=== PATIENT | male | born 1975 | race Caucasian/White ===

== ENCOUNTER 2020-01-03 17:04 | Emergency (ER) | payer OTHER ==
[~2020-01-03] VITALS: Ht 185.4 cm; Wt 83.9 kg
[~2020-01-03 17:04] MED LIST: ALBU90I; ALBU90OI INH; ANTI DEPRESSANT; ASPI81CH PO; AZIT250 PO; BENZ100A PO; BUDE200IP INH; CHOLESTEROL MED?; CIPR500 PO; Cleocin HCl300 MG PO; DIVA250ER PO; FISH1000 PO; HYDACE5 PO; LISI5 PO; LORA2 PO; LOVA40; MECL25 PO; NAPR500EC PO; NYST100000 PO; Norco 10-325 T1 EACH PO; OXYACE5T PO; PANT40; PROM25 PO; Percocet 5-3251 EACH PO; RXLORA1 PO; SULTRIDS PO; TERB250 PO; TRAM50 PO; TRIA80TC TOP; VARE1 PO; WATER PILL?
[2020-01-03 19:35] LABS: Calcium, Ionized (POC) 1.06 mmol/L (1.10-1.46); Chloride (POC) 100 mmol/L (98-108); Creatinine (POC) 0.7 mg/dL (0.8-1.3); Glucose (ISTAT POC) 95 mg/dL (70-99); Potassium (POC) 3.6 mmol/L (3.5-5.5); Sodium (POC) 138 mmol/L (135-148); Total CO2 (POC) 24 mmol/L (21-32)
[2020-01-03] MEDS ORDERED: HYDCHL12.5 PO (20:14)
[2020-01-03] MEDS ORDERED: OLANZAPINE5 M1 PO (20:15)
[2020-01-03] MEDS ORDERED: TOPICORT60 G1 TP (20:15)
[2020-01-03] MEDS ORDERED: ATORVASTATIN CA20 MG PO (20:15)
[2020-01-03] MEDS ORDERED: Chantix1 MG PO (20:15)
[2020-01-03] MEDS ORDERED: LOSARTAN POTASS50 MG PO (20:15)
[2020-01-03] MEDS ORDERED: IBU800 M1 PO (20:16)
[2020-01-03] MEDS ORDERED: Ativan1 MG PO (20:30)
== END 2020-01-03 20:47 | disposition home or self-care (01) ==
LOC: ER 17:04
PROVIDERS: Emergency Medicine
DX: J39.2 Other diseases of pharynx (principal); F17.210 Nicotine dependence, cigarettes, uncomplicated; Z98.890 Other specified postprocedural states; Z88.8 Allergy status to other drugs, medicaments and biological substances; Z79.82 Long term (current) use of aspirin; Z79.899 Other long term (current) drug therapy
CPT/HCPCS: 36415; 70487; 80047; 85014; 99284-25; Q9967

== ENCOUNTER 2020-02-01 10:14 | Observation (INO) | payer OTHER ==
[~2020-02-01] VITALS: Ht 185.4 cm; Wt 83.4 kg
[~2020-02-01 10:14] MED LIST changes: +ATORVASTATIN CA20 MG PO; +Ativan1 MG PO; +Chantix1 MG PO; +HYDCHL12.5 PO; +IBU800 M1 PO; +LOSARTAN POTASS50 MG PO; +OLANZAPINE5 M1 PO; +TOPICORT60 G1 TP
--- NOTE | 2020-02-01 11:21 | NUR ---
Ambulatory in Day Surgery Surgical site prepped with 2% Chlorhexidine cloth wipe. History, Chart, Medications and Allergies reviewed before start of procedure.Lungs clear T/O to Auscultation. Patient confirms NPO status and agrees with scheduled surgery. PROVIDED EMOTIONAL SUPPORT. PT ANXIETY HAS DISSAPATED. AT [facility].
--- NOTE | 2020-02-01 12:16 | NUR ---
02/01/20 1216 TRINIDAD KURTZ History, Chart, Medications and Allergies reviewed before start of procedure. 3-LEAD EKG REVIEWED WITH PHYSICIAN PRIOR TO START OF PROCEDURE. O2 VIA N/C INTACT THROUGHOUT SEDATION/PROCEDURE. MONITOR INTACT WITH CONTINUOUS PULSE OXIMETRY AND INTERMITTENT BP. MAC WITH DR. LOPEZ.
[2020-02-01 13:49] LABS: BASOPHILS ABSOLUTE AUTO 0.02 K/mm3 (0.00-0.23); BASOPHILS PERCENT AUTO 0 % (0-2); EOSINOPHILS ABSOLUTE AUTO 0.05 K/mm3 (0.00-0.68); EOSINOPHILS PERCENT AUTO 1 % (0-6); Hematocrit 43.3 % (37.0-53.0); Hemoglobin 14.5 g/dL (13.5-17.5); IMMATURE GRAN ABSOLUTE AUTO 0.03 K/mm3 (0.00-0.10); IMMATURE GRAN PERCENT AUTO 0 % (0-1); LYMPHOCYTES ABSOLUTE AUTO 2.15 K/mm3 (0.84-5.20); LYMPHOCYTES PERCENT AUTO 31 % (21-46); MONOCYTES ABSOLUTE AUTO 0.37 K/mm3 (0.16-1.47); MONOCYTES PERCENT AUTO 5 % (4-13); Mean Corpuscular HGB 33.1 pg (26.0-34.0); Mean Corpuscular HGB Conc 33.5 g/dL (31.5-36.5); Mean Corpuscular Volume 99 fL (80-100); Mean Platelet Volume 8.7 fL (9.1-12.4); NEUTROPHILS ABSOLUTE AUTO 4.36 K/mm3 (1.96-9.15); NEUTROPHILS PERCENT AUTO 63 % (41-73); Platelet Count 126 K/mm3 (150-400); RDW Coefficient Variation 11.9 % (11.7-14.2); RDW Standard Deviation 43.7 fL (35.1-46.3); Red Blood Cell Count 4.38 M/mm3 (4.30-5.90); White Blood Cell Count 6.98 K/mm3 (4.00-11.30)
[2020-02-01 13:58] LABS: Alanine Aminotransfer (ALT/SGP 63 U/L (12-78); Albumin, Blood 3.7 g/dL (3.4-5.0); Albumin/Globulin Ratio 1.1 (0.8-1.8); Alk Phos 122 U/L (50-136); Anion Gap 9 mmol/L (6-16); Aspartate Aminotrans (AST/SGOT 56 U/L (12-37); Bilirubin, Total 0.5 mg/dL (0.1-1.0); Blood Urea Nitrogen 7 mg/dL (8-24); Bun/Creatinine Ratio 8.4 (12.0-20.0); CO2, Blood 26 mmol/L (21-32); Calcium, Blood 8.6 mg/dL (8.5-10.1); Chloride, Blood 107 mmol/L (98-108); Creatinine, Blood 0.84 mg/dL (0.60-1.20); Globulin, Blood 3.5 g/dL (2.2-4.0); Glomerular Filtration Rate >60 (60-); Glucose, Blood 191 mg/dL (70-99); Sodium, Blood 142 mmol/L (136-145); Total Protein, Blood 7.2 g/dL (6.4-8.2)
--- NOTE | 2020-02-01 14:08 | NUR ---
PT ARRIVED TO ICU 1 AT 1332 FROM DAY SURGERY. WAS REPORTED THAT MIGHT HAVE ASPIRATED DURING PROCEDURE AND WAS BROUGHT TO ICU FOR CLOSE OBS. PT C/O DULL PAIN IN UPPER MID ABD. HAS NEWLY PLACED PEG TUBE THAT IS WELL SECURED WITH C/D/I DRESSING AROUND TUBE. PT WAS ANXIOUS AND ROCKING IN BED FROM DISCOMFORT. GAVE FENTANYL PER DR. TRUONG ORDERS AND PT ALMOST IMMEDIATELY FELT BETTER. DR. TRUONG REMOVED O2 FROM PT AND SPO2 GREATER THAN 90% ON RA. AT BEDSIDE. NO SIGN OF DISTRESS.
[2020-02-01] MEDS ORDERED: OLAN5 PO (14:46)
[2020-02-01] MEDS ORDERED: ATOR20 PO (14:48)
[2020-02-01] MEDS ORDERED: DESO.25TO TOP (14:49)
[2020-02-01] MEDS ORDERED: Chantix1 MG PO (14:50)
[2020-02-01] MEDS ORDERED: ALBU90OI INH (14:51)
[2020-02-01] MEDS ORDERED: HYDROCODONE-AC1 EAC9 PO (14:52)
[2020-02-01] MEDS ORDERED: TRAM50 PO (14:53)
--- NOTE | 2020-02-01 18:00 | NUR ---
PT IS BEING TRANSFERED TO MEDICAL FLOOR RM 312. PT HAS BEEN STABLE WHILE IN THE ICU. ON RA WITH SPO2 IN THE 90'S. GOT 2 DOSES OF PAIN MEDICATION WITH GOOD RESULTS. STARTED MAGIC MOUTHWASH FOR IRRITATION TO MOUTH AND THROAT. DR. TRUONG HAS SIGNED OFF ON THE PATIENT. DR. DELGADILLO WILL BE TAKING OVER FOR ORDERS ON THIS PT. NO SIGN OF DISTRESS.
--- NOTE | 2020-02-01 18:49 | NUR ---
PT ARRIVED TO ROOM 312 FROM ICU AFTER REPORT GIVEN. CAME UP IN BED AND REPORTED HIS ABDOMEN WAS CAUSING HIM A GREAT DEAL OF PAIN. PT REPORTED NOT BEING OUT OF BED SINCE PROCEDURE BECAUSE HIS ABDOMEN IS SO PAINFUL. EXPLAINED TO HIM DESPITE PAIN HOW IMPORTANT IS IS TO MOVE AND AMBULATE. FWW PROVIDED AND ASSISTED HIM FROM BED IN HALLWAY TO BED IN ROOM. SETTLED HIM. HAD CALLED DR. SMITH ANSWERING SERVICE PRIOR TO ARRIVING TO ROOM FOR ORDERS. PT REPORTING BEING VERY HUNGRY. WAS WARM TO TOUCH AND TEMP WAS 100.3. DR. DELGADILLO NOTIFIED OF ARRIVAL CONDITION. SEE NEW ORDERS. HAS A STUFFY NOSE. ICE PROVIDED FOR COMFORT TO PEG SITE.
--- NOTE | 2020-02-01 22:38 | NUR ---
CALL TO HOSPITALIST: PT DEMONSTRATING ETOH WITHDRAWAL SYMPTOMS. CIWA SCORE OF 6. PT REPORTS DRINKING A 6 PACK AND SEVERAL SHOTS EVERY DAY. SPOKE W/DR. TREVINO- INITIATE CIWA PROTOCOL.
--- NOTE | 2020-02-02 02:27 | NUR ---
CALL TO HOSPITALIST DR. GAMBOA. PT REQUESTING HOME DOSE OF ZYPREXA TO HELP HIM SLEEP. ORDER RECEIVED FOR ZYPREXA 5MG PO QHS.
[2020-02-02 04:37] LABS: BASOPHILS ABSOLUTE AUTO 0.01 K/mm3 (0.00-0.23); BASOPHILS PERCENT AUTO 0 % (0-2); EOSINOPHILS ABSOLUTE AUTO 0.02 K/mm3 (0.00-0.68); EOSINOPHILS PERCENT AUTO 0 % (0-6); Hematocrit 40.4 % (37.0-53.0); Hemoglobin 13.8 g/dL (13.5-17.5); IMMATURE GRAN ABSOLUTE AUTO 0.02 K/mm3 (0.00-0.10); IMMATURE GRAN PERCENT AUTO 0 % (0-1); LYMPHOCYTES PERCENT AUTO 22 % (21-46); MONOCYTES ABSOLUTE AUTO 0.65 K/mm3 (0.16-1.47); MONOCYTES PERCENT AUTO 8 % (4-13); Mean Corpuscular HGB 32.8 pg (26.0-34.0); Mean Corpuscular HGB Conc 34.2 g/dL (31.5-36.5); Mean Corpuscular Volume 96 fL (80-100); Mean Platelet Volume 8.8 fL (9.1-12.4); NEUTROPHILS ABSOLUTE AUTO 5.83 K/mm3 (1.96-9.15); NEUTROPHILS PERCENT AUTO 70 % (41-73); Platelet Count 112 K/mm3 (150-400); RDW Coefficient Variation 11.8 % (11.7-14.2); RDW Standard Deviation 41.5 fL (35.1-46.3); Red Blood Cell Count 4.21 M/mm3 (4.30-5.90); White Blood Cell Count 8.33 K/mm3 (4.00-11.30)
[2020-02-02 04:54] LABS: Anion Gap 6 mmol/L (6-16); Blood Urea Nitrogen 7 mg/dL (8-24); Bun/Creatinine Ratio 9.4 (12.0-20.0); CO2, Blood 26 mmol/L (21-32); Calcium, Blood 8.4 mg/dL (8.5-10.1); Chloride, Blood 106 mmol/L (98-108); Creatinine, Blood 0.74 mg/dL (0.60-1.20); Glomerular Filtration Rate >60 (60-); Glucose, Blood 116 mg/dL (70-99); Potassium, Blood 3.7 mmol/L (3.5-5.5); Sodium, Blood 138 mmol/L (136-145)
--- NOTE | 2020-02-02 06:26 | NUR ---
SHIFT SUMMARY: VSS. PER DR. TOLLIVER, NO TEMPS CHECKED. 02 SATS 95% ON RA. RESPS NON-LABORED. NASAL CONGESTION AUDIBLE. LS W/COARSE RHONCHI INITIALLY, CLEARED W/COUGHING. ENCOURAGED PT TO SPLINT ABD DUE TO SORENESS AT GT SITE. GT ON LUQ W/DRESSING CDI. PT REPORTS SITE LESS SORE THIS AM. ZOFRAN GIVEN FOR NAUSEA X1 W/GOOD EFFECT. CIWA SCORE 6, 1, 3, 1. PT SLEPT VERY POORLY. AFFECT FLAT, CALM, COOPERATIVE. ABT INFUSED PER ORDERS. PT OFF OF MEDICAL FLOOR AT THIS TIME FOR CHEST X-RAY. NO ACUTE CONCERNS AT THIS TIME.
--- NOTE | 2020-02-02 11:08 | NUR ---
DISCHARGE NOTES- PT RECIEVED VERBAL AND WRITTEN DISCHARGE INSTRUCTIONS AND ACKNOWLEDGEDUNDERSTANDING OF THEM. PT STSTED HE RECIEVED A PHONE CALL FROM [facility] TELLING HIM HE NEEDS TO FLUSH HIS NEW TUBE 2 TIMES A DAY UNTIL HIS APPOINTMENT. CALLED DR TOLLIVER AND LEFT A MESSAGE REQUESTING OK TO USE GI TUBE SO ASSISTANT FOREMAN CAN PROVIDE EDUCATION ABOUT HOW TO DO THAT. WAS AWAITING A CALL BACK WHEN THE PT CALLED AND STATED HE HAD SPOKEN TO RAHEL AGAIN AND THAT SHE WANTS HIM TO COME STRAIGHT TO THE CLINIC NOW SO SHE CAN EDUCATE. PT DECLINED TO WAIT ANY LONGER FOR DR NAVAS, PT DECLINED WC AND WAS ESCORTED OUT BY THE BEEF SELECTOR. NO FURTHER QUESTIONS AT THE TIME OF DISCHARGE.
== END 2020-02-02 11:02 | disposition home or self-care (01) ==
LOC: ORSCMMR 10:14 → ORD 11:45 → ORSCMMR 13:21 → ICUW 13:21 → ICUE 13:21 → MEDS 18:18
PROVIDERS: ADMIT Surgery
PROC: 0DH63UZ Insertion of Feeding Device into Stomach, Percutaneous Approach (ICD-10-PCS; principal; 2020-02-01 11:45)
DX: C10.9 Malignant neoplasm of oropharynx, unspecified (principal); Z88.8 Allergy status to other drugs, medicaments and biological substances; Z79.82 Long term (current) use of aspirin; Z79.899 Other long term (current) drug therapy; F17.210 Nicotine dependence, cigarettes, uncomplicated; J45.909 Unspecified asthma, uncomplicated; I10 Essential (primary) hypertension; E78.5 Hyperlipidemia, unspecified; Z20.828 Contact with and (suspected) exposure to other viral communicable diseases; R09.02 Hypoxemia
CPT/HCPCS: 36415; 71045; 71046; 80048; 80053; 85025; 96365; 96366; 96376; C1769; G0378; J0330; J0690; J1650; J2250; J2270; J2405; J2543; J2704; J3010; J7120

== ENCOUNTER 2020-02-17 14:50 | Inpatient (IN) | payer OTHER ==
[~2020-02-17] VITALS: Ht 185.4 cm; Wt 80.0 kg
[~2020-02-17 14:50] MED LIST changes: +ATOR20 PO; +DESO.25TO TOP; +HYDROCODONE-AC1 EAC9 PO; +OLAN5 PO
[2020-02-17 15:40] LABS: BASOPHILS ABSOLUTE AUTO 0.03 K/mm3 (0.00-0.23); BASOPHILS PERCENT AUTO 1 % (0-2); Hematocrit 40.7 % (37.0-53.0); Hemoglobin 13.7 g/dL (13.5-17.5); LYMPHOCYTES ABSOLUTE AUTO 0.84 K/mm3 (0.84-5.20); LYMPHOCYTES PERCENT AUTO 13 % (21-46); MONOCYTES PERCENT AUTO 5 % (4-13); Mean Corpuscular HGB 32.8 pg (26.0-34.0); Mean Corpuscular HGB Conc 33.7 g/dL (31.5-36.5); Mean Corpuscular Volume 97 fL (80-100); Mean Platelet Volume 8.9 fL (9.1-12.4); Platelet Count 171 K/mm3 (150-400); RDW Coefficient Variation 11.9 % (11.7-14.2); RDW Standard Deviation 42.6 fL (35.1-46.3); Red Blood Cell Count 4.18 M/mm3 (4.30-5.90); White Blood Cell Count 6.31 K/mm3 (4.00-11.30)
[2020-02-17 15:41] LABS: EOSINOPHILS ABSOLUTE AUTO 0.01 K/mm3 (0.00-0.68); EOSINOPHILS PERCENT AUTO 0 % (0-6); IMMATURE GRAN ABSOLUTE AUTO 0.03 K/mm3 (0.00-0.10); IMMATURE GRAN PERCENT AUTO 1 % (0-1); NEUTROPHILS PERCENT AUTO 81 % (41-73)
[2020-02-17 16:06] LABS: Albumin, Blood 2.6 g/dL (3.4-5.0); Albumin/Globulin Ratio 0.6 (0.8-1.8); Bilirubin, Total 0.7 mg/dL (0.1-1.0); Bun/Creatinine Ratio 11.5 (12.0-20.0); Calcium, Blood 8.8 mg/dL (8.5-10.1); Creatinine, Blood 4.53 mg/dL (0.60-1.20); Globulin, Blood 4.5 g/dL (2.2-4.0); Potassium, Blood 3.6 mmol/L (3.5-5.5); Total Protein, Blood 7.1 g/dL (6.4-8.2)
[2020-02-17 17:11] LABS: Source, Urine Clean Catch
[2020-02-17 17:14] LABS: Appearance, Urine Hazy (Clear); Blood, Urine 4+ (Neg); Color, Urine Yellow (P-Yellow); Glucose Qualitative, Urine 3+ (Neg); Ketones, Urine Neg (Neg); Leukocyte Esterase, Urine 1+ (Neg); Nitrite, Urine Neg (Neg); Protein, Urine 3+ (Neg); Specific Gravity, Urine 1.025 (1.003-1.022); Urobilinogen, Urine NORM (Normal)
[2020-02-17 17:26] LABS: Bilirubin, Urine 1+ (Neg)
[2020-02-17 17:28] LABS: Waxy Cast 0-2 /lpf (0)
[2020-02-17 17:29] LABS: Amorphous Mod (0-Heavy); Bacteria Few /hpf; Mucus Light (0-Heavy); Squamous Epithelial Cells Many /hpf (Few)
[2020-02-17] MEDS ORDERED: HYDPAM100 PO (18:18)
[2020-02-17] MEDS ORDERED: HYDCHL12.5 PO (18:19)
[2020-02-17] MEDS ORDERED: Chantix1 MG PO (18:19)
--- NOTE | 2020-02-17 22:00 | NUR ---
INITAL SHIFT ASSESSMENT PT ARRIVED TO ICU VIA ICU BED. HE IS INTUABTED BEING BAGGED BY ANESTHEOLOGIST DR RODRIGUEZ. VITALS ARE STABLE. RT IN ROOM TO CHIEF OPERATIONS OFFICER TO VENT. SEE RT NOTES REGARDING VENT SETTINGS AND CHANGES T/O SHIFT. PROPOFOL GTT WAS STARTED AT 20MCG FOR SEDATION. WILL TITRATE NEEDED T/O SHIFT. TWO PERIPHERAL IV'S ONE TO RIGHT AC AND ONE TO LEFT FA. BOTH PATENT. NS WILL BE STARTED ORDERED WELL. PT WILL NOT HAVE AN OG TUBE PLACED PER DR NETTLES'S ORDERS. PICCO DRESSING TO MIDLINE ABD SURGICAL SITE. THERE IS A QUARTER SIZE BLOOD SPOT TOWARDS TOP OF INCISION. PT HAS A J DRAIN TO LEFT ABD THAT IS CLAMMPED. DR NETTLES ORDERED TO HAVE IT IRRIGATED EVERY 6HRS. FLAVIA DRAIN TO NATALIIA TO RIGHT ABD. RED/PINK RETURN. BOTH DRAINS HAVE 4*4 DRESSINGS CDI. ABD IS VERY ROUND AND FIRM, DR NETTLES REPORTS IS MUCH SOFTER AND APPEARS TO BE LESS DISTENTED. SEAY CATH IN PLACE DRAINING MINIMAL YELLOW URINE. PAS STOCKING IN PLACE. SOFT BILATERAL WRIST RESTRAINTS IN PLACE. PT IS AT THIS TIME NOT FOLLOWING COMMANDS OR PULLING AGAINST RESTRAINTS. PT'S IN TO VISIT WITH PT PRIOR TO GOING HOME. WILL CON'T TO MONITOR AND KEEP PT SAFE T/O REMAINDER OF SHIFT.
--- NOTE | 2020-02-18 05:14 | NUR ---
SHIFT SUMMARY PT CON'T TO BE STABLE WITH NO CHANGES FROM BASELINE. THE SHIFT PROGRESSES HE BECOMES MORE AWAKE ON VENT. AT ONE POINT HE WAS SHAKING HEAD YES AND NO TO QUESTIONS. PROPOFOL GTT HAS BEEN INCREASED WELL FENTANYL IV BEING GIVEN FOR SEDATION AND PAIN CONTROL. VITALS HAVE BEEN STBALE T/O SHIFT. HE HAS HAD NO VENT SETTING CHANGES. NO CHANGES TO DRESSINGS OR DRAINS. J DRAIN TO LEFT ABD WAS IRRIGATED ORDERED FROM DR NETTLES. ABD CON'T TO BE ROUND BUT SOFT. FLAVIA DRAIN TO RIGHT ABD CON'T TO HAVE MINIMAL OUTPUT. SEAY CATH HAD MINIMAL URINE OUTPUT, BUT URINE IS YELLOW. SOFT BILATERAL WRIST RESTRAINTS CON'T TO BE IN PLACE WITH NO SKIN OR CIRCULATION CONCERNS. WILL CON'T TO KEEP PT CALM AND COMFORTABLE UNTIL BEDSIDE REPORT TO ONCOMING RN.
--- NOTE | 2020-02-18 07:55 | NUR ---
Assumed care of pt at 0700. Bedside report received from Re RAO. Pt sedated with propofol at 50 mcg/kg/min. Ventilator settings AC 14/400/5/30%. SpO2 90% or greater. Dr Hurst in to see patient. Changed ventilator to spontaneous 11/24, 30% FiO2. Propofol stopped. Pt awake, following commands within 5 minutes. Extubated at 0745 and placed on 2 LPM NC. Restraints removed. SpO2 90% or greater. Pt oriented to situation. Pt inquires where is family is. Pt provided with his cell phone.
--- NOTE | 2020-02-18 09:11 | NUR ---
Dr De Souza in to see patient. Orders CBC and BMP. Discussed urine output. Okay with pt potentially moving out of ICU this afternoon.
[2020-02-18 09:31] LABS: Hematocrit 32.6 % (37.0-53.0); Mean Corpuscular HGB Conc 33.7 g/dL (31.5-36.5); Mean Corpuscular Volume 98 fL (80-100); Mean Platelet Volume 8.9 fL (9.1-12.4); Platelet Count 127 K/mm3 (150-400); RDW Coefficient Variation 12.2 % (11.7-14.2); RDW Standard Deviation 44.3 fL (35.1-46.3); Red Blood Cell Count 3.33 M/mm3 (4.30-5.90); White Blood Cell Count 4.78 K/mm3 (4.00-11.30)
[2020-02-18 09:49] LABS: Creatinine, Blood 5.64 mg/dL (0.60-1.20); Potassium, Blood 3.9 mmol/L (3.5-5.5)
[2020-02-18 09:56] LABS: BASOPHILS PERCENT MAN 0 % (0-2); EOSINOPHILS ABSOLUTE MAN 0.04 K/mm3 (0.00-0.68); EOSINOPHILS PERCENT MAN 1 % (0-6); LYMPHOCYTES ABSOLUTE MAN 0.57 K/mm3 (0.84-5.20); LYMPHOCYTES PERCENT MAN 12 % (21-46); MONOCYTES ABSOLUTE MAN 0.43 K/mm3 (0.16-1.47); MONOCYTES PERCENT MAN 9 % (4-13); NEUTROPHILS ABSOLUTE MAN 3.72 K/mm3 (1.96-9.15); SEG NEUTROPHILS PERCENT MAN 78 % (41-73); TOTAL CELLS COUNTED 100
--- NOTE | 2020-02-18 12:10 | NUR ---
Patient surgical floor status without telemetry per Dr Hurst. Hospitalist consulted per Dr De Souza for management of ANABELA. Call placed to Mario REGAN. Discussed pain management with Dr De Souza as pt is requiring frequent administrations of IV fentanyl. Pain med changed to dilaudid.
[2020-02-18 13:34] LABS: Magnesium, Blood 1.9 mg/dL (1.6-2.4); Phosphorus, Blood 5.2 mg/dL (2.5-4.9)
[2020-02-18 13:37] LABS: Base Excess Venous -8.6 mmol/L; Bicarbonate Venous 18.2 mmol/L (24.0-30.0); PCO2 Venous 33.2 mmHg (38-42); PO2 Venous 111 mmHg (38-42); pH Blood Venous 7.33 (7.34-7.37)
--- NOTE | 2020-02-18 14:00 | NUR ---
Mario SPRING FORMER in to see patient. Discussed I&O. Provider agreeable with pt transferring to surgical floor.
--- NOTE | 2020-02-18 15:00 | NUR ---
Pt transferred to room 227. Report given to JALEN Nelson to assume care. Transferred via bed using slider sheet and many staff members. Chart, belongings, and medications transferred with patient. Pt to update spouse on new room assignment.
--- NOTE | 2020-02-18 16:00 | NUR ---
TRANSFER: REPORT RECEIVED FROM STORE PLANNER MINDY. PT TO UNIT AT ABOUT 1510. IV MEDS STARTED BY STORE PLANNER. UPON ASSESSMENT PT APPEARS PAINFUL WITH TRANSFER AND BREATHING IS FAST. LUNGS AT CLEAR AND DIM, CRACKLES AT BILAT BASES. AT 1517 VITALS TAKEN AND BP, HR AND RR HIGH. CERTIFIED PEST CONTROL TECHNICIAN MARIA NOTIFIED OF VS. AND DR. HOWARD NOTIFIED OF THE ABOVE AND FINDING IN ASCULATING LUNGS. TELE REORDERED AND LABATOLOL GIVEN IV ALONG WITH ATIVAN, SEE EMAR. RT CALLED, AWAITING BREATHING TREATMENT AT THIS TIME. WILL CTM PT STATUS
[2020-02-18 19:41] LABS: Source, Urine Catheter
[2020-02-18 19:44] LABS: Appearance, Urine Clear (Clear); Bilirubin, Urine Neg (Neg); Blood, Urine 4+ (Neg); Color, Urine Yellow (P-Yellow); Glucose Qualitative, Urine 2+ (Neg); Ketones, Urine 1+ (Neg); Leukocyte Esterase, Urine Neg (Neg); Nitrite, Urine Neg (Neg); Protein, Urine 3+ (Neg); Urobilinogen, Urine NORM (Normal)
[2020-02-18 19:50] LABS: Amorphous Light (0-Heavy); Bacteria Mod /hpf; Squamous Epithelial Cells Not Seen /hpf (Few)
--- NOTE | 2020-02-18 19:50 | NUR ---
AT ABOUT 1730 PT REASSESSED AND VS TAKEN. FINDINGS WERE NOT WITHIN NORMAL LIMITS, SEE CHARTING. PT WAS MORE DROWSY AND PRESENTING WITH INCREASED WOB. PT ALSO STATED THAT HE WAS "SEEING SHADOWS" AND FELT IF HE WAS WITHDRAWING. DR. SHAW NOTIFIED OF THIS AT ABOUT 1745. DR. SHAW SAW PT AT ABOUT 1800 AT WHICH TIME PT REPORTED TO HAVE SOME CHEST PAIN. SEE NEW ORDERS. CONTINUED TO MONITOR PT AND ASSESSED A CIWA SCORE OF 10, MEDICATIONS GIVEN. PT CONTINUED TO HAVE VS OUT OF NORMAL LIMITS AND BECAME MORE DISOREINTED. WINTER INTERN RICK MADE AWARE AND ENTERED ROOM. JALEN CABRERA THEN REASSESSED CIWA AND IT TOTALED 21. DR. SHAW MADE AWARE AND ORDERED FOR PT TO TRANSFER TO ICU.
--- NOTE | 2020-02-18 20:13 | NUR ---
TRANSFER: REPORT GIVEN TO METAL WIRE TECHNICIANJALEN GOMES AT ABOUT 1850. PT TRANSFERED FROM SURGICAL TO ICU AT ABOUT 191
[2020-02-18 21:02] LABS: Albumin, Blood 1.7 g/dL (3.4-5.0); Anion Gap 9 mmol/L (6-16); Blood Urea Nitrogen 67 mg/dL (8-24); Bun/Creatinine Ratio 10.7 (12.0-20.0); CO2, Blood 20 mmol/L (21-32); Chloride, Blood 109 mmol/L (98-108); Creatinine, Blood 6.29 mg/dL (0.60-1.20); Glomerular Filtration Rate 10 (60-); Glucose, Blood 165 mg/dL (70-99); Phosphorus, Blood 6.2 mg/dL (2.5-4.9); Potassium, Blood 3.9 mmol/L (3.5-5.5); Sodium, Blood 138 mmol/L (136-145)
--- NOTE | 2020-02-18 23:37 | NUR ---
SHIFT UPDATE PT HAS BEEN RESTING WELL SINCE ATIVAN, DILAUDID AND PRECEDEX WERE ALL ADMINISTERED FOR COMFORT. PT WILL WAKE WITH VERBAL STIMULI, BUT THEN IS ABLE TO REST BACK DOWN. HE IS STILL ON 6L N/C WITH SATS IN THE 96% RANGE. PT IS A MOUTH BREATHER HOWEVER. PRECEDEX GTT AT 0.2MCG CURRENTLY. HE IS NOT IN RESTRAINTS. BP IS ELEVATED AND PRN LABETALOL IV HAS BEEN GIVEN WITH MINIMAL RESULTS WILL CON'T TO MONITOR AND CALL MD IF INDICATED. DR WAITE WAS CALLED EARLIER IN SHIFT WITH MOST RECENT LAB RESULTS. SHE STATES SHE WILL LIKELY HAVE DIALYSIS DONE ON PT TOMORROW AFTER A LINE IS PLACED. WILL CON'T TO MONITOR AND KEEP PT SAFE T/O SHIFT.
--- NOTE | 2020-02-19 01:34 | NUR ---
DR GORDO CARO WAS CALLED REGARDING PT'S INCREASED EXP WHEEZING AND OXYGEN SATS 92% ON 6L N/C. HE ORDERED TO GIVE LASIX IV. THIS WAS ADMINISTERED WILL MONITOR FOR EFFECTIVENESS. DR CARO WAS MADE AWARE OF PT'S BP WELL POSSIBLE NEED FOR DIALYSIS TOMORROW PER DR WAITE.
[2020-02-19 03:30] LABS: BASOPHILS ABSOLUTE AUTO 0.02 K/mm3 (0.00-0.23); BASOPHILS PERCENT AUTO 0 % (0-2); EOSINOPHILS ABSOLUTE AUTO 0.04 K/mm3 (0.00-0.68); EOSINOPHILS PERCENT AUTO 1 % (0-6); Hematocrit 34.8 % (37.0-53.0); Hemoglobin 11.3 g/dL (13.5-17.5); IMMATURE GRAN ABSOLUTE AUTO 0.07 K/mm3 (0.00-0.10); IMMATURE GRAN PERCENT AUTO 1 % (0-1); LYMPHOCYTES ABSOLUTE AUTO 0.41 K/mm3 (0.84-5.20); LYMPHOCYTES PERCENT AUTO 8 % (21-46); MONOCYTES ABSOLUTE AUTO 0.34 K/mm3 (0.16-1.47); MONOCYTES PERCENT AUTO 7 % (4-13); Mean Corpuscular HGB 32.6 pg (26.0-34.0); Mean Corpuscular HGB Conc 32.5 g/dL (31.5-36.5); Mean Corpuscular Volume 100 fL (80-100); Mean Platelet Volume 8.4 fL (9.1-12.4); NEUTROPHILS ABSOLUTE AUTO 4.28 K/mm3 (1.96-9.15); NEUTROPHILS PERCENT AUTO 83 % (41-73); Platelet Count 113 K/mm3 (150-400); RDW Coefficient Variation 12.4 % (11.7-14.2); RDW Standard Deviation 46.2 fL (35.1-46.3); Red Blood Cell Count 3.47 M/mm3 (4.30-5.90); White Blood Cell Count 5.16 K/mm3 (4.00-11.30)
[2020-02-19 03:55] LABS: Magnesium, Blood 2.4 mg/dL (1.6-2.4); Thyroid Stimulating Hormone 0.357 uIU/mL (0.360-4.800)
[2020-02-19 03:56] LABS: Albumin, Blood 1.7 g/dL (3.4-5.0); Albumin/Globulin Ratio 0.4 (0.8-1.8); Bilirubin, Total 0.3 mg/dL (0.1-1.0); Bun/Creatinine Ratio 10.4 (12.0-20.0); Creatinine, Blood 6.73 mg/dL (0.60-1.20); Phosphorus, Blood 7.4 mg/dL (2.5-4.9); Potassium, Blood 4.3 mmol/L (3.5-5.5); Total Protein, Blood 5.7 g/dL (6.4-8.2)
--- NOTE | 2020-02-19 05:04 | NUR ---
SHIFT SUMMARY PT CON'T TO BE STABLE THIS AM. HE HAS BEEN VERY CALM AND COOPERATIVE SINCE THIS RN ADMINISTERED PAIN MEDICATION IV. THIS AM HE WAS SAYING PLEASE AND THANK YOU. PT'S WHEEZING IS MUCH IMPROVED AFTER THE ADMINISTRATION OF LASIX. HE DID HAVE A FAIR AMOUNT OF URINE FROM SEAY AFTER LASIX. BP DOES CON'T TO BE ELEVATED. NO CHANGES WITH DRAINS OR ABD DRESSING CDI. IRRIGATED J TUBE ORDERED. WILL CON'T TO MONITOR AND KEEP PT SAFE T/O REMAINDER OF SHIFT.
--- NOTE | 2020-02-19 08:17 | NUR ---
ASSESSMENT- PT AWAKE, ABLE TO ANSWER QUESTIONS, ALERT, ORIENTED. SPEECH MUMBLED. STATES SOME SOB, ESPECIALLY WITH MOVEMENT IN BED. OXYGEN SATURATIONS 95% ON 8L/MIN NC, DECREASED TO 5 L/MIN, SATURATIONS, 91%. LUNGS WITH AUDIBLE WHEEZES. SINUS TACH, BP ELEVATED. PO CLONINIDINE GIVEN. DR. GARCIA HERE-UPDATED. DR. WAITE HERE-UPDATED. ABDOMEN DISTENDED, TENDER. DENIES NEED FOR PAIN RX AT THIS TIME. FEW BOWEL SOUNDS HEARD, NO N/V. ML DSG INTACT WITH BLANCA. UO 150 CC VIA SEAY. ARMS SWOLLEN. REPOSITIONED, ASSISTED WITH MOVEMENT.
--- NOTE | 2020-02-19 09:02 | NUR ---
C/O ANXIETY, REQUESTING RX. CIWA INCREASED TO 8. ATIVAN GIVEN WITH IMPROVEMENT. LABETOLOL FOR ELEVATED BP
--- NOTE | 2020-02-19 09:36 | NUR ---
UPDATE TO ELDERPT'S SIGNIFICANT OTHER. NOTIFIED DR. WAITE TO UPDATE HER. DR. JACKSON HERE-UPDATED. PLANS FOR DIALYSIS CATH. PT SEDATED AFTER ATIVAN, AWAKENS TO NAME. DR. NETTLES HERE-FLUSHED JTUBE WITHOUT DIFFICULTY. STAT LABS ORDERED. HEARTRATE IMPROVED AFTER BETA LEXI, BP BETTER. IV LASIX GIVEN. NO AUDIBLE WHEEZES NOW.
[2020-02-19 09:55] LABS: Base Excess Venous -10.2 mmol/L; PCO2 Venous 34.9 mmHg (38-42); PO2 Venous 80.7 mmHg (38-42)
[2020-02-19 09:56] LABS: pH Blood Venous 7.28 (7.34-7.37)
[2020-02-19 10:22] LABS: International Normalized Ratio 0.86; Prothrombin Time Results 9.3 Sec (9.7-11.5)
--- NOTE | 2020-02-19 10:43 | NUR ---
BEDSIDE ULTRASOUND DONE. LABS DRAWN FROM PICC LINE. DR. ARREOLA HERE
--- NOTE | 2020-02-19 10:51 | NUR ---
UPDATE TO [facility], TALKED WITH DR. ARREOLA ON PHONE. AGREEABLE WITH DIALYSIS. SET UP FOR LINE PLACEMENT. PT SEDATED, CALM, AWAKENS TO NAME. UO 125 CC AFTER LASIX. DENIES SOB NOW, RESPIRATIONS EASIER WITH BIPAP. CONSENT FOR LINE PLACEMENT FROM [facility].
--- NOTE | 2020-02-19 12:07 | NUR ---
LINE PLACED BY DR. ARREOLA. AWAITING XRAY RESULTS. SINUS TACH. MORE UNCOMFORTABLE. PRECEDEX STARTED PER DR. ARREOLA. HYDRALAZINE FOR ELEVATED BP. REPOSITIONED, LINEN CHANGE
--- NOTE | 2020-02-19 13:00 | NUR ---
PT IN DISTRESS. ATTEMPT BIPAP, UNABLE TO TOLERATE. SINUS TACH. EXPIRATORY WHEEZES. PLANS FOR INTUBATION. DR. ARREOLA AT BEDSIDE WITH GLIDESCOPE. RX WITH ETOMIDATE 20 MG AND ROCURONIUM 20 MG THEN REPEATED ETOMIDATE [address] ARREOLA. INTUBATED BUT DECREASED SATURATIONS, HEARTRATE DECREASED TO 90, TUBE PULLED, BAGGED, SUCTIONED FOR THICK WHITE SECRETIONS, THEN BILE SECRETIONS. REINTUBATED BY DR. PARTIDA WITH 8 ETT, 24 BARBARA WITH POSITIVE CO2 COLOR CHANGED, BILATERAL BREATH SOUNDS, IMPROVED SATURATIONS, HEARTRATE UP TO 120'S. NOTIFIED DR. BOWER TO PLACE OGT-DONE GENTLY WITH RETURN OF SCANT AMOUNT BILE SECRETIONS-TO LIS. XRAY DONE. PRECEDEX OFF, PROPOFOL GTT STARTED.
--- NOTE | 2020-02-19 13:32 | NUR ---
UPDATE TO PT'S SIGNIFICANT OTHER. [facility] DIALYSIS CATH-UNABLE TO ASPIRATE BLOOD. DR. ARREOLA TO EXCHANGE LINE. BP IMPROVED AFTER FENTANYL DOSE. PROPOFOL TITRATED UP TO 50 MCG/KG/MIN
--- NOTE | 2020-02-19 15:11 | NUR ---
UNABLE TO USE RIJ CENTRAL LINE FOR DIALYSIS. SECOND LINE PLACED BY DR. ARREOLA RIGHT FEMORAL SITE, DIALYSIS STARTED PER TONIO RAO. RIJ CATHETER D/C, PRESSURE HELD UNTIL HEMOSTASIS OBTAINED.DRSG ON. PT SEDATED. ABLE TO DECREASE FIO2 TO 80%. BP IMPROVED. BILATERAL WRIST RESTRAINTS ON-EXTUBATION RISK
--- NOTE | 2020-02-19 16:45 | NUR ---
PT AGITATED, LEGS SHAKING. PROPOFOL CONTINUES AT 60 MCG/KG/MIN, RX WTIH ATIVAN. DR. ARREOLA HERE-UPDATED. DIALYSIS CONTINUES. DR. WAITE HERE-UPDATED. LABETOLOL GIVEN. RIJ DDI. RIGHT FEMORAL SITE DI
[2020-02-19 16:46] LABS: Base Excess Venous 1.3 mmol/L; Bicarbonate Venous 24.4 mmol/L (24.0-30.0); PCO2 Venous 53.3 mmHg (38-42); PO2 Venous 38.9 mmHg (38-42); pH Blood Venous 7.32 (7.34-7.37)
--- NOTE | 2020-02-19 18:06 | NUR ---
PT SEDATED WITH PROPOFOL AT 60 MCG/KG/MIN. TOLERATING [id number] BPM. SINUS 110'S. BP STABLE. RIGHT FEMORAL LINE DI. PIV X 4 INTACT. NS TKO, CLINIMIX AT 100 CC/HR, LIPIDS AT 25 CC/HR. ARMS SWOLLEN. BLOODY DRAINAGE ORAL CARE. OGT WITH 50 CC GREEN DRAINAGE. ML DRSG DI. UO ADEQUATE VIA SEAY
--- NOTE | 2020-02-19 19:30 | NUR ---
ASSUMED CARE RECEIVED REPORT. PT INTUBATED TO VENT AC 14, TV 450, PEEP 8, FIO2 70%. PT SEDATED ON PROPOFOL AT 60 MCG. BANDAGE OVER PREVIOUS R IJ SITE DRY AND INTACT. LUNG SOUNDS COARSE WITH CRACKLES TO LEFT THROUGHOUT. RIGHT WITH CRACKLES TO MIDDLE AND LOWER. FAINT INSPIRATORY WHEEZES AUSCULTATED TO RIGHT SIDE. HEQART SOUNDS NORMAL. MIDLINE SURGICAL DRESSING WITH BLANCA DRAIN INTACT WITH A SMALL AMOUNT OF RED DRAINAIGE TO BANDAGE. RIGHT LOWER ABD NATALIIA DRAIN INTACT WITH SMALL AMOUNT OF SEROSANGUINOUS FLUID. LEFT LOWER ABD J TUBE INTACT AND FLUSHES EASILY. SEAY CATH INTACT DRAINING CLEAR YELLOW URINE. MINIMAL 1+ EDEMA NOTED TO LOWER EXTREMITIES. PT SEDATED AND APPEARS COMFORTABLE AT THIS TIME.
--- NOTE | 2020-02-19 22:04 | NUR ---
FLUSHED J TUBE WITH 30ML NS. FLUSHES EASILY.
[2020-02-20 03:30] LABS: BASOPHILS ABSOLUTE AUTO 0.02 K/mm3 (0.00-0.23); BASOPHILS PERCENT AUTO 0 % (0-2); Hematocrit 28.5 % (37.0-53.0); Hemoglobin 9.4 g/dL (13.5-17.5); LYMPHOCYTES ABSOLUTE AUTO 0.61 K/mm3 (0.84-5.20); LYMPHOCYTES PERCENT AUTO 11 % (21-46); MONOCYTES ABSOLUTE AUTO 0.31 K/mm3 (0.16-1.47); MONOCYTES PERCENT AUTO 6 % (4-13); Mean Corpuscular HGB 32.4 pg (26.0-34.0); Mean Corpuscular Volume 98 fL (80-100); Platelet Count 89 K/mm3 (150-400); RDW Coefficient Variation 12.2 % (11.7-14.2); RDW Standard Deviation 44.6 fL (35.1-46.3); White Blood Cell Count 5.49 K/mm3 (4.00-11.30)
[2020-02-20 03:33] LABS: EOSINOPHILS ABSOLUTE AUTO 0.06 K/mm3 (0.00-0.68); EOSINOPHILS PERCENT AUTO 1 % (0-6); IMMATURE GRAN ABSOLUTE AUTO 0.05 K/mm3 (0.00-0.10); IMMATURE GRAN PERCENT AUTO 1 % (0-1); NEUTROPHILS ABSOLUTE AUTO 4.44 K/mm3 (1.96-9.15); NEUTROPHILS PERCENT AUTO 81 % (41-73)
[2020-02-20 03:47] LABS: Alanine Aminotransfer (ALT/SGP 19 U/L (12-78); Albumin, Blood 1.5 g/dL (3.4-5.0); Albumin/Globulin Ratio 0.4 (0.8-1.8); Alk Phos 66 U/L (50-136); Anion Gap 9 mmol/L (6-16); Aspartate Aminotrans (AST/SGOT 33 U/L (12-37); Bilirubin, Total 0.4 mg/dL (0.1-1.0); Blood Urea Nitrogen 61 mg/dL (8-24); Bun/Creatinine Ratio 9.6 (12.0-20.0); CO2, Blood 24 mmol/L (21-32); Calcium, Blood 7.1 mg/dL (8.5-10.1); Chloride, Blood 101 mmol/L (98-108); Creatinine, Blood 6.33 mg/dL (0.60-1.20); Globulin, Blood 3.7 g/dL (2.2-4.0); Glomerular Filtration Rate 10 (60-); Glucose, Blood 122 mg/dL (70-99); Magnesium, Blood 2.4 mg/dL (1.6-2.4); Phosphorus, Blood 5.5 mg/dL (2.5-4.9); Potassium, Blood 3.6 mmol/L (3.5-5.5); Sodium, Blood 134 mmol/L (136-145); Total Protein, Blood 5.2 g/dL (6.4-8.2); Triglycerides 360 mg/dL (30-160)
[2020-02-20 04:15] LABS: BAND PERCENT MAN 4 % (0-8); BASOPHILS PERCENT MAN 0 % (0-2); EOSINOPHILS PERCENT MAN 2 % (0-6); LYMPHOCYTES ABSOLUTE MAN 0.87 K/mm3 (0.84-5.20); LYMPHOCYTES PERCENT MAN 16 % (21-46); MONOCYTES ABSOLUTE MAN 0.43 K/mm3 (0.16-1.47); MONOCYTES PERCENT MAN 8 % (4-13); SEG NEUTROPHILS PERCENT MAN 69 % (41-73); TOTAL CELLS COUNTED 49
--- NOTE | 2020-02-20 04:15 | NUR ---
ATTEMPTED DECREASE PROPOFOL, SEDATION VACATION, PT. RESTLESS, ATTEMPTS TO PULL AT LINES AND TUBES.
--- NOTE | 2020-02-20 05:35 | NUR ---
SHIFT SUMMARY PT REMAINS ET TO VENT, AC 14, TV 450, PEEP 8, FIO2 60%. PT WITHDRAWS FROM NOXIOUS STIMULI, GRIMACES WITH SUCTIONING AND MOUTH CARE. LUNG SOUNDS REMAIN COARSE WITH CRACKLES ON RIGHT. BLANCA DRESSING IN PLACE, NO INCREASE IN RED DRAINAIGE FROM BEGINNING OF SHIFT. RLQ NATALIIA IN PLACE DRAINING SMALL AMOUNT OF SEROSANGUINOUS FLUID. J TUBE IN PLACE TO LUQ, FLUSHED WITH NS. CAPPED AT THIS TIME. ABD DISTENDED AND FIRM, VERY LITTLE BOWEL TONES. SEAY DRAINING CLEAR YELLOW URINE 225CC THIS SHIFT. TRIALYSIS CATH TO RIGHT FEMORAL INTACT. PT TEMP FROM 100.5 AT BEGINNING OF SHIFT NOW AT 98.2.
--- NOTE | 2020-02-20 08:00 | NUR ---
INITIAL ASSESSMENT PATIENT INTUBATED AND SEDATED ON PROPOFOL. PATIENT RESPONDS TO PAINFUL STIMULI/ ORAL CARE WITH GRIMACING. PATIENT AFEBRILE. PATIENT HAS NO SIGNS OF PAIN NOTED AT THIS TIME. LLL DIMINISHED; ALL OTHER LUNG LOBES COARSE. MODERATE AMOUNT OF DOLL SPUTUM BEING SUCTIONED FROM ETT. PATIENT SATTING 90% AND GREATER ON AC 14, TV 450, P 8, 55% FIO2. PATIENT IN SR TO ST, HR 90S TO LOW 100S. SBP LOW 100S. SCDS ON. ABDOMEN MODERATELY DISTENDED, FIRM, WITH HYPOACTIVE BS NOTED. J TUBE TO L ABDOMEN. NATALIIA DRAIN TO R ABDOMEN. SURGICAL LACERATION TO MIDLINE; BLANCA WOUND VAC IN PLACE. OG TO LIS DRAINING GREEN COLORED FLUID. DATE OF LAST BM UNKNOWN. SEAY DRAINING YELLOW COLORED URINE WITH SEDIMENT NOTED. CLINIMIX INFUSING AT 100 MLS/ HOUR. PROPOFOL INFUSING AT 60 MCG/ KG/ MINUTE. NS TKO. TRIALYSIS CATHETER TO R FEM. BED LOW. WILL CONTINUE TO MONITOR PATIENT FREQUENTLY THROUGHOUT SHIFT.
[2020-02-20 08:13] LABS: HBSAG SCREEN Negative (Negative)
--- NOTE | 2020-02-20 12:30 | NUR ---
PATIENT REMAINS INTUBATED AND ON SEDATION. PRECEDEX ADDED AND INFUSING AT 0.7 MCG/ KG/ HOUR, PROPOFOL INFUSING AT 50 MCG/ KG/ MINUTE. PATIENT BECAME AGITATED SHORT TIME AFTER DECREASING PROPOFOL BY JUST 10 MCG. PATIENT MUCH MORE RELAXED AFTER PRN FENTANYL GIVEN. PATIENT HAS TEMP OF 99.8 DEGREES FAHRENHEIT. PATIENT MOVING ARMS SLIGHTLY BEFORE GIVEN PRN FENTANYL. PATIENT SATTING 90% AND GREATER ON SPONTANEOUS PRESSURE SUPPORT 8/8, 40% FIO2. RR IN THE 30S BEFORE FENTANYL GIVEN; NOW TEENS TO 20S. LUNGS COARSE AND WHEEZY. HR IN THE LOW 100S. SBP 140S TO 160S. J TUBE FLUSHED WITH 30 MLS OF WATER. ONLY 100 MLS OF URINE OUT. DR. ARREOLA INFORMED. BLOOD SUGAR OF 125.
--- NOTE | 2020-02-20 16:00 | NUR ---
AFEBRILE. PATIENT ON SAME VENT SETTINGS. HR IN THE 80S. SBP IN THE LOW 100S.
--- NOTE | 2020-02-20 18:26 | NUR ---
SHIFT SUMMARY PATIENT REMAINED INTUBATED AND ON SEDATION. PATIENT PLACED ON PRECEDEX THIS SHIFT. PROPOFOL ABLE TO BE TITRATED DOWN. PATIENT HAS BEEN REMAINING TO RESPOND TO PAINFUL STIMULI. PATIENT HAS MOVED ARMS BUT HAS NOT MOVED LEGS. PATIENT HAD TMAX OF 99.8 DEGREES FAHRENHEIT. PATIENT GIVEN PRN FENTANYL A FEW TIMES. FENTANYL SEEMED TO HELP QUITE A BIT. PATIENT ON AC 14, TV 450, PEEP 5 AND 60% FIO2. PATIENT HAS BEEN ON SPONTANEOUS PRESSURE SUPPORT MOST OF THE DAY; 11/24, 40% FIO2. LUNGS REMAINED COARSE WITH SOME WHEEZING. PATIENT HAD SMALL TO MODERATE AMOUNT OF DOLL SECRETIONS FROM ETT. PATIENT REMAINED IN SR TO ST, HR 80S TO LOW 100S. SBP LOW 100S TO 160S. ABD REMAINED MODERATELY DISTENDED, FIRM, WITH HYPOACTIVE BS. OG REMAINED TO LOW INTERMITTENT SUCTION; NO DRAINAGE NOTED THIS SHIFT. PATIENT HAD ONE MEDIUM, LIQUID, BROWN STOOL. SEAY REMAINED YELLOW WITH SEDIMENT NOTED. PATIENT ONLY HAD 125 MLS OUT THIS SHIFT. DR. ARREOLA AWARE OF MINIMAL OUTPUT. NO CHANGE TO SKIN. PICC PLACED TO [facility]. PERIPHERAL IVS TO LEFT ARM REMOVED. CLINIMIX AND INTRALIPID DC'D AND CPN STARTED. CPN INFUSING AT 75 MLS/ HOUR. NS TKO. PROPOFOL AT 35 MCG/ KG/ MINUTE. PRECEDEX AT 1.4 MCG/ KG/ HOUR. PATIENT RECEIVED FLAGYL AND ROCEPHIN THIS SHIFT. BLOOD SUGAR 125 AND 132. PATIENT APPEARS COMFORTABLE AT THIS TIME. BED LOW. WILL BE GIVING REPORT TO ASSUMING FOOD SERVICE AGENT RN SHORTLY.
--- NOTE | 2020-02-21 00:25 | NUR ---
FLUSHED J TUBE 30 CC NS
--- NOTE | 2020-02-21 02:00 | NUR ---
UPON REPOSITIONING, PT. GRIMACES BECOMES RESTLESS AND ATTEMPTS TO REACH FOR ET TUBE. PROPOFOL AND PRECEDEX INFUSING. PT. MEDICATED WITH FENTANYL FOR PAIN OREDERED. PT. APPEARS MUCH MORE COMFORTABLE AFTER FENTANYL.
[2020-02-21 04:42] LABS: Hematocrit 25.4 % (37.0-53.0); Hemoglobin 8.5 g/dL (13.5-17.5); Mean Corpuscular HGB 33.1 pg (26.0-34.0); Mean Corpuscular HGB Conc 33.5 g/dL (31.5-36.5); Mean Corpuscular Volume 99 fL (80-100); Mean Platelet Volume 9.3 fL (9.1-12.4); Platelet Count 80 K/mm3 (150-400); RDW Coefficient Variation 12.2 % (11.7-14.2); RDW Standard Deviation 44.5 fL (35.1-46.3); Red Blood Cell Count 2.57 M/mm3 (4.30-5.90); White Blood Cell Count 4.85 K/mm3 (4.00-11.30)
[2020-02-21 05:24] LABS: BAND PERCENT MAN 9 % (0-8); BASOPHILS ABSOLUTE MAN 0.09 K/mm3 (0.00-0.23); BASOPHILS PERCENT MAN 2 % (0-2); EOSINOPHILS PERCENT MAN 0 % (0-6); LYMPHOCYTES ABSOLUTE MAN 0.53 K/mm3 (0.84-5.20); LYMPHOCYTES PERCENT MAN 11 % (21-46); MONOCYTES ABSOLUTE MAN 0.19 K/mm3 (0.16-1.47); MONOCYTES PERCENT MAN 4 % (4-13); NEUTROPHILS ABSOLUTE MAN 4.02 K/mm3 (1.96-9.15); SEG NEUTROPHILS PERCENT MAN 74 % (41-73); TOTAL CELLS COUNTED 100
--- NOTE | 2020-02-21 06:11 | NUR ---
SHIFT SUMMARY NO ACUTE CHANGES OVERNIGHT. PT REMAINS INTUBATED AND SEDATED. VENT SETTINGS PS 8/8 40% WITH SAT>90%. PRECEDEX 1.4 MCG/KG/HR AND PROPOFOL 55 MCG/KG/MIN FOR SEDATION. PT EASILY AGITATED WITH ORAL CARE AND REPOSITIONING. FENTANYL PUSH PRN. PT AFEBRILE T/O SHIFT, VSS. WILL REPORT TO DAYSHIFT NURSE.
[2020-02-21 06:13] LABS: Bun/Creatinine Ratio 10.6 (12.0-20.0); Calcium, Blood 7.4 mg/dL (8.5-10.1); Creatinine, Blood 7.17 mg/dL (0.60-1.20); Magnesium, Blood 2.8 mg/dL (1.6-2.4); Phosphorus, Blood 7.3 mg/dL (2.5-4.9); Potassium, Blood 3.6 mmol/L (3.5-5.5)
--- NOTE | 2020-02-21 09:09 | NUR ---
CARE ASSUMED ASSESSMENTS COMPLETED. PT SEDATED WITH PROPOFOL 55MCG AND PRECEDEX 1.4MCG, CPN INFUSING AT 75ML/HR. PT BARRON WHEN STIMULATED, BECAME AGITATED WITH ORAL CARE/REPOSITIONING, MEDICATED WITH FENTANYL WITH GOOD RESULTS. AFEBRILE. PT INTUBATED, PS 8/8, FIO2 40%. Vt 600'S, RR 16, SPO2 96%. LS COARSE WITH EXP WHEEZES T/O, SCANT AMOUNT DOLL SECRETIONS FROM ETT. HR SINUS 80, BP STABLE. ABD DISTENDED, FIRM, BLANCA DRESSING TO MIDLINE ABD INCISION D/I WITH SMALL AMT DRY RED DRAINAGE, UNCHANGED ALL NIGHT PER REPORT. NATALIIA DRAIN TO R ABD WITH SS DRAINAGE, CLAMPED J TUBE L ABD, DRESSINGS CDI. BT HYPOACTIVE. ULCERATION NOTED TO ROOF OF MOUTH, BLACKENED AROUND EDGES. PICC TO L UPPER ARM, TRIALYSIS CATH TO R GROIN, SITES WNL, FLUSHING/INFUSING WITHOUT DIFFICULTY. DR. WAITE IN TO SEE PATIENT, PLAN FOR DIALYSIS THIS AFTERNOON.
[2020-02-21 10:46] LABS: Bilirubin, Direct 0.2 mg/dL (0.0-0.3); Bilirubin, Indirect 0.2 mg/dL (0.1-0.7); Bilirubin, Total 0.4 mg/dL (0.1-1.0)
--- NOTE | 2020-02-21 10:53 | NUR ---
SEDATION DECREASE PROPOFOL DECREASED TO 40MCG PER DR. ARREOLA. PT QUICKLY WAKES UP, IS ALERT AND AGITATED BUT FOLLOWS COMMANDS, COUGH/GAG INTACT, OPENS EYES SPONTANEOUSLY. RR 32, Vt 500'S, SPO2 87%. ETT SUCTIONED, PT MEDICATED WITH FENTANYL PER KASSANDRA AND DR. ARREOLA, PT CALMED BRIEFLY, THEN BECAME AGITATED ONCE MORE. RR 26, SPO2 87-90%, Vt 500'S. DR. ARREOLA AWARE, PROPOFOL INCREASED BACK TO 55MCG, WILL INITIATE FENTANYL PEST CONTROL TECHNICIAN PER ORDERS AND TITRATE PROPOFOL DOWN ABLE. PRECEDEX REMAINS AT 1.4MCG.
--- NOTE | 2020-02-21 15:05 | NUR ---
UPDATE TRICKLE FEEDS PER ORDERS VIA J TUBE, VITAL HP AT 10ML/HR WTIH 30ML H20 FLUSHES Q4H, CONTINUING CPN AT 75ML/HR PER DR. NETTLES. FENTANYL STEAMFITTER SUPERVISOR INFUSING PER ORDERS, ATTEMPTED MULTIPLE TIMES TO TITRATE PROPOFOL DOWN WITH MINIMAL SUCCESS. PT'S RESPIRATIONS HAVE BECOME INCREASINGLY LABORED THIS SHIFT, PT MAINTAINING Vt >600 AND SPO2 >90%, RR 16-20. DR. ARREOLA NOTIFIED BY RT. VENT BACK TO AC 14, Vt 450, PEEP 8, FIO2 50%, BEGAN DOUBLE STACKING BREATHS, PROPOFOL INCREASED TO 50MCG AT 1500. PT RECEIVING DIALYSIS, BP STABLE.
--- NOTE | 2020-02-21 16:59 | NUR ---
VENT SETTINGS/UPDATE DIALYSIS COMPLETED AT 1630. VENT CHANGED TO PS 8/5, FIO2 40%, PT'S RR 10, Vt'S 800, SPO2 94%, MINUTE VOLUME 8-9. PT NO LONGER STACKING BREATHS BUT RESPIRATIONS APPEAR TO BE LABORED AGAIN, PT LIFTING HEAD WITH EACH BREATH. PT REPOSITIONED, ORAL CARE COMPLETED. PT SUDDENLY BECAME DIAPHORETIC, CLAMMY. AFEBRILE, HR 80'S SINUS, BP 118/82, WILL CONTINUE TO MONITOR. PICC LINE DRESSING CHANGED.
--- NOTE | 2020-02-21 18:40 | NUR ---
END OF SHIFT PT WITH MILDLY CLAMMY SKIN, VS REMAIN STABLE. PROPOFOL TITRATED DOWN TO 25MCG, FENTANYL 125MCG, PRECEDEX 1.4MCG. VENT REMAINS PS 8/5, FIO2 40%, TOLERATING SETTINGS WELL. LS COARSE WITH WHEEZES, DOLL SPUTUM FROM ETT. HR SINUS 80'S. ABD DISTENDED, FIRM, HYPOACTIVE BT. CPN AT 75ML/HR, VITAL HP 10ML/HR INFUSING VIA J TUBE, DRESSING CDI. OGT TO LIWS WITH SMALL AMOUNT GREEN OUTPUT. BLANCA DRESSING UNCHANGED. DRESSING TO NATALIIA DRAIN CHANGED FOR SMALL AMT SS DRAINAGE, SUTURES INTACT. DRAINAGE FROM NATALIIA SANGUINEOUS, DECREASING IN VOLUME. 75ML URINE OUTPUT THIS SHIFT, PT RECEIVED DIALYSIS WITH 0ML OFF, BP STABLE T/O. NO BM'S, SCD'S IN PLACE. PT RESTING QUITELY WITH NO S/SX RESTLESSNESS/AGITATION AT THIS TIME. REPORT TO ONCOMING SHIFT.
--- NOTE | 2020-02-21 18:58 | NUR ---
PT BECAME AGITATED, KICKING FEET AND THRASHING HEAD BACK AND FORTH. PROPOFOL INCREASED TO 40MCG. UNABLE TO TITRATE SEDATION MUCH THIS SHIFT D/T AGITATION/RESTLESSNESS DESPITE MULTIPLE EFFORTS.
--- NOTE | 2020-02-21 20:00 | NUR ---
INITAL SHIFT ASSESSMENT PT IS INTUBATED AND SEDATED AT THIS TIME. PRESSURE SUPPORT ON VENT AT THIS TIME PT IS TOLERATING WELL. SEE RT NOTES FOR VENT SETTING CHANGES T/O SHIFT. PT HAS AN OG TUBE IN PLACE TO LOW INT SUCTION. MINMAL GREEN BILE RETURN. PT HAS MIDLINE INCISION WITH ORIGINAL PICCO DRESSING IN PLACE. J TUBE WITH NEW CDI DRESSING TO LEFT ABD. TUBE FEEDING RUNNING ORDERED INTO J TUBE SEE NURSES ASSESSMENT. FLAVIA NATALIIA DRAIN TO RIGHT LOWER QUADRANT WITH CDI DRESSING WITH MINIMAL OUTPUT. ABD IS ROUND A FAIRLY FIRM. SEAY CATH IN PALACE DRAINING CLEAR YELLOW URINE. MINIMAL AMOUNT FOR OUPUT. PT HAS A RIGHT GROIN DIALYSIS CATH IN PLACE. DRESSING CDI NO SWELLING OR BRUISING NOTED. PT DOES HAVE AN ACCESS SITE WITH DRESSING TO RIGHT IJ FOR DIALYSIS CATH ATTEMPT. PAS STOCKINGS IN PLACE WELL. PT HAS SOME EDEMA STARTING IN HIS EXTREMITIES WHICH ARE ELVATED ON PILLOWS. SOME PENILE SWELLING NOTED. PT HAS A PICC LINE TO LEFT UPPER ARM. SEE ICU FLOW SHEET FOR ALL CHANGES TO GTT RATES. PT HAS PROPOFOL GTT/ PRECEDEX GTT/ AND FENTANYL GTT IN PLACE FOR SEDATION. HE ALSO TPN RUNNING AT 75ML/HR. JORDYN SOFT WRIST RESTRAINTS IN PLACE. PT IS NOT PULLING AT RESTRAINTS. SKIN CDI WITH GOOD CIRCULATION. WILL CON'T TO MONITOR AND KEEP PT SAFE T/O REMAINDER OF SHIFT.
[2020-02-22 03:43] LABS: BASOPHILS ABSOLUTE AUTO 0.01 K/mm3 (0.00-0.23); BASOPHILS PERCENT AUTO 0 % (0-2); EOSINOPHILS PERCENT AUTO 0 % (0-6); Hematocrit 25.8 % (37.0-53.0); Hemoglobin 8.6 g/dL (13.5-17.5); IMMATURE GRAN ABSOLUTE AUTO 0.04 K/mm3 (0.00-0.10); IMMATURE GRAN PERCENT AUTO 1 % (0-1); LYMPHOCYTES ABSOLUTE AUTO 0.24 K/mm3 (0.84-5.20); LYMPHOCYTES PERCENT AUTO 5 % (21-46); MONOCYTES ABSOLUTE AUTO 0.17 K/mm3 (0.16-1.47); MONOCYTES PERCENT AUTO 3 % (4-13); Mean Corpuscular HGB 32.6 pg (26.0-34.0); Mean Corpuscular HGB Conc 33.3 g/dL (31.5-36.5); Mean Corpuscular Volume 98 fL (80-100); Mean Platelet Volume 9.7 fL (9.1-12.4); NEUTROPHILS ABSOLUTE AUTO 4.66 K/mm3 (1.96-9.15); NEUTROPHILS PERCENT AUTO 91 % (41-73); Platelet Count 73 K/mm3 (150-400); RDW Coefficient Variation 12.2 % (11.7-14.2); RDW Standard Deviation 44.1 fL (35.1-46.3); Red Blood Cell Count 2.64 M/mm3 (4.30-5.90); White Blood Cell Count 5.12 K/mm3 (4.00-11.30)
[2020-02-22 03:56] LABS: Triglycerides 271 mg/dL (30-160)
[2020-02-22 04:07] LABS: Bun/Creatinine Ratio 12.1 (12.0-20.0); Calcium, Blood 8.3 mg/dL (8.5-10.1); Creatinine, Blood 6.1 mg/dL (0.60-1.20); Magnesium, Blood 2.7 mg/dL (1.6-2.4); Potassium, Blood 4.7 mmol/L (3.5-5.5)
[2020-02-22 04:12] LABS: Phosphorus, Blood 8.5 mg/dL (2.5-4.9)
--- NOTE | 2020-02-22 05:11 | NUR ---
SHIFT SUMMARY PT CON'T TO BE STABLE WITH NO CHANGES FROM BASELINE. REVIEWED ALL AM LABS WITH GARMENT LINER HEIDI. PT SEEMS TO HAVE A LITTLE MORE INCREASE IN LABORED BREATHING T/O MORINING. RT REVIEWED RESULTS FROM THE VBG AND THEY BELIEVE HE IS ATTEMPING TO COMPENSATE WITH HIS RESPIRATORY PATTERN. PROPOFOL GTT / PRECEDEX GTT / FENTANYL GTT CON'T TO RUN FOR SEDATION. PT DOES FURROW HIS BROW WITH ANY ORAL CARE OR SUCTIONING. HE DID OPEN HIS EYES AND PULL AGAINST RESTRAINTS WITH A TURN AROUND 0200. PT CON'T TO HAVE JORDYN SOFT WRIST RESTRAINTS IN PLACE WITH NO SKIN ISSUES. PT WAS GIVEN A PARTIAL BATH AND THIS SEEMED TO AGGITATE HIM. PAS STOCKINGS WERE REMOVED SO PT COULD HAVE A BREAK. PT DID HAVE VERY MINIMAL OUTPUT IN HIS SEAY CATH. PENIS CON'T TO SWELL. NO CHANGES TO MIDLINE ABD DRESSING. NO CHANGES TO J TUBE OR FLAVIA DRAIN. OG TUBE IN PLACE STILL DRAINING MINIMAL BILE. WILL CON'T TO MONITOR AND KEEP PT SAFE T/O REMAINDER OF SHIFT.
--- NOTE | 2020-02-22 08:24 | NUR ---
CARE ASSUMED ASSESSMENTS COMPLETED, PT REMAINS INTUABTED, SEDATED WITH PROPOFOL 45MCG, PRECEDEX 1.4MCG, AND FENTANYL GTT 125MCG, UNRESPONSIVE TO PAIN AT THIS TIME, NO EXTREM MOVEMENT. SWR BILAT IN PLACE. VENT PS 8/5, FIO2 40%, RR 12, Vt 700'S, SPO2 93%, NO STACKING/GUPPY BREATHING NOTED AT THIS TIME. LS COARSE T/O, SMALL AMT SECRETIONS FROM ETT. HR SINUS 90'S, BP STABLE, EXTREM AND GENITAL EDEMA INCREASING. ABD REMAINS DISTENDED, BLANCA DRESSING UNCHANGED, INTACT. J TUBE L ABD WITH VITAL HP 10ML/HR, NATALIIA DRAIN R ABD WITH SCANT SEROUS DRAINAGE, DRESSINGS CDI. CPN 75ML/HR. FEW BT NOTED, NO GRIMACING UPON PALPATION OF ABD. SEAY WITH SCANT URINE OUTPUT, NO DIALYSIS TODAY PER DR. WAITE. TRIIALYSIS CATH TO R GROIN, SITE WNL, UNABLE TO DRAW BLOOD BUT FLUSHES WITHOUT DIFFICULTY. PICC TO L UPPER ARM WNL, INFUSING WITHOUT DIFFICULTY. DRESSINGS CDI. S/O GIVEN UPDATE.
--- NOTE | 2020-02-22 09:20 | NUR ---
This student was assigned to ICU patient on 02/21 at 0630.
--- NOTE | 2020-02-22 13:38 | NUR ---
UPDATE/SEDATION VACATION PROPOFOL DECREASED FOR SEDATION VACATION, PT WAS ABLE TO WAKE, OPENED EYES SPONTANEOUSLY AND ANSWERED YES/NO QUESTIONS APPROPRIATELY. FOLLOWED SIMPLE COMMANDS, DOWEL MAKER VERY WEAK. PT AGITATED, Vt'S 1000, KICKING FEET. RESEDATED, PROPOFOL BACK TO 45MCG, VENT SETTINGS AND OTHER GGT'S UNCHANGED. PT NOW RESTING CALMLY, VT'S 600'S, RR 12.
--- NOTE | 2020-02-22 19:06 | NUR ---
END OF SHIFT PT BECAME AGITATED DURING REPOSITIONING THIS AFTERNOON, FENTANYL INCREASED TO 150MCG/HR, PT SETTLED AND HAS BEEN RESTING COMFORTABLY SINCE. DR. NETTLES IN TO ASSESS PATIENT, NO NEW ORDERS AT THIS TIME. OGT FLUSHED BY WITHOUT DIFFICULTY, SCANT OUTPUT FROM OGT THIS SHIFT. BT SEEM TO BE INCREASING SLIGHTLY, ABD FEELS SOFTER THAN YESTERDAY. NATALIIA DRAIN WITH MINIMAL OUTPUT, FEEDINGS VIA JTUBE CONTINUE AT 10ML/HR, TPN AT 75ML/HR. DR. WAITE IN TO SEE PATIENT, LASIX ADMINSITERED PER ORDERS, 350ML URINE OUT THIS SHIFT, PLAN TO DIALYZE TOMORROW. VENT AND SEDATION SETTINGS UNCHANGED, LS REMAIN COARSE. HR SINUS 80'S. EDEMA INCREASING THIS EVENING. PT'S STEP-DAUGHTER AT BEDSIDE FOR VISIT, UPDATE GIVEN. REPORT TO ONCOMING SHIFT.
--- NOTE | 2020-02-22 19:38 | NUR ---
INITAL SHIFT ASSESSMENT BED SIDE REPORT RECIEVED FROM OFF GOING RN. RT IN ROOM TO ASSESS PT. SEE RT NOTES FOR ANY VENT SETTING CHANGES T/O SHIFT. PT ON SPONTANEOUS WITH PRESSURE SUPPORT AND TOLERATING THIS WELL. PT IS INTUBATED AND SEDATED AT THIS TIME. PROPOFOL GTT / FENTANYL GTT / PRECEDEX GTT ALL BEING TITRATED FOR SEDATION. SEE ICU FLOW SHEET FOR ALL TITRATIONS TO GTTS. PT HAS OG TUBE IN PLACE WITH ET TUBE. LOW INT SUCTION WITH GREEN BILE FOR MINIMAL RETURN. MIDLINE INCISION HAS ORIGINAL PICCO DRESSING IN PLACE WITH CON'T VAC. J TUBE IN PLACE TO LEFT ABD WITH CDI DRESSING. TUBE FEEDING RUNNING ORDERED INTO J TUBE. SEE NURSES ASSESSMENT FOR DETAILS. FLAVIA NATALIIA DRAIN TO RIGHT ABD WITH VERY MINIMAL DRAINAGE. DRESSING CDI. ABD IS FIRM WITH HYPO ACTIVE BOWEL TONES TO ALL QUADRANTS. PT HAS SEAY CATH IN PLACE DRAINING CLEAR YELLOW URINE. PAS STOCKINGS IN PLACE. EDEMA NOTED TO EXTREMITIES AND THEY ARE ELEVATED ON PILLOWS. PT ALSO HAS PENIAL EDEMA. CATH CARE DONE WITH NO S/S OF INFECTION. JORDYN SOFT WRIST RESTRAINTS IN PLACE. PT IS NOT PULLING AGAINST RESTRAINTS OR MOVING LEGS. HE DOES HOWEVER BECOME FAIRLY AGGITATED WITH ANY CARE. OPENS EYES AND LOOKS AROUND. HE WILL THEN KICK HIS LEGS AND PULL ARMS AGAINST RESTRAINTS. TPN RUNNING ORDERED INTO PICC LINE IN LEFT UPPER ARM. DRESSING CDI AND PATENT. WILL CON'T TO MONITOR AND KEEP PT SAFE T/O REMAINDER OF SHIFT.
--- NOTE | 2020-02-22 20:07 | NUR ---
BED BATH PT TOLERATED A BED BATH WELL. HE DID HAVE SOME BUCKING ON THE ET TUBE, BUT RECOVERED WELL. PT HAD A SMALL BOWEL MOVEMENT. HE HAD STOOL IN HIS GROIN. HIS RIGHT GROIN DIALYSIS CATH ACCESS SITE WAS CLEANED WELL. WILL CHANGE DRESSING IF NEEDED. HE HAS A LOW GRADE TEMP AND THUS TEMP IN ROOM WAS TURNED DOWN, BLANKETS REMOVED AND COOL CLOTH APPLIED TO FOREHEAD.
[2020-02-23 03:20] LABS: BASOPHILS ABSOLUTE AUTO 0.01 K/mm3 (0.00-0.23); BASOPHILS PERCENT AUTO 0 % (0-2); EOSINOPHILS PERCENT AUTO 0 % (0-6); Hematocrit 24.2 % (37.0-53.0); IMMATURE GRAN ABSOLUTE AUTO 0.06 K/mm3 (0.00-0.10); IMMATURE GRAN PERCENT AUTO 1 % (0-1); LYMPHOCYTES ABSOLUTE AUTO 0.43 K/mm3 (0.84-5.20); LYMPHOCYTES PERCENT AUTO 6 % (21-46); MONOCYTES ABSOLUTE AUTO 0.39 K/mm3 (0.16-1.47); MONOCYTES PERCENT AUTO 6 % (4-13); Mean Corpuscular HGB 32.9 pg (26.0-34.0); Mean Corpuscular HGB Conc 33.1 g/dL (31.5-36.5); Mean Corpuscular Volume 100 fL (80-100); Mean Platelet Volume 9.9 fL (9.1-12.4); NEUTROPHILS ABSOLUTE AUTO 6.05 K/mm3 (1.96-9.15); NEUTROPHILS PERCENT AUTO 87 % (41-73); Platelet Count 85 K/mm3 (150-400); RDW Coefficient Variation 12.4 % (11.7-14.2); RDW Standard Deviation 45.8 fL (35.1-46.3); Red Blood Cell Count 2.43 M/mm3 (4.30-5.90); White Blood Cell Count 6.94 K/mm3 (4.00-11.30)
[2020-02-23 03:43] LABS: Bun/Creatinine Ratio 15.2 (12.0-20.0); Calcium, Blood 7.9 mg/dL (8.5-10.1); Creatinine, Blood 6.52 mg/dL (0.60-1.20); Magnesium, Blood 2.8 mg/dL (1.6-2.4); Potassium, Blood 4.7 mmol/L (3.5-5.5)
[2020-02-23 03:46] LABS: Phosphorus, Blood 8.8 mg/dL (2.5-4.9)
--- NOTE | 2020-02-23 05:20 | NUR ---
SHIFT SUMMARY NO ACUTE CHANGES T/O SHIFT. DISCUSSED MORNING LABS WITH EDUCATION GENERAL MANAGER MINGO. PT CON'T TO BE TOLERATING SPONTANEOUS VENT SETTINGS STILL. PROPOFOL GTT / PRECEDEX GTT / FENTANYL IV ALL CON'T TO RUN FOR SEDATION. SEE ICU FLOW SHEET FOR TITRATIONS. PT'S VITALS HAVE BEEN HOLDING STEADY T/O SHIFT. PT CON'T TO HAVE TPN RUNNING ORDERED. HE HAS TUBE FEEDING WELL INTO J TUBE. NO CHANGES TO ABD. HOWEVER IT CON'T TO BE VERY FIRM. PT ALSO HAS HAD 450 CC OF DARK GREEN RETURN FROM THE OG TUBE HOOKED UP TO LOW INT SUCTION. SEAY CATH CON'T TO BE IN PLACE DRAINING CLEAR YELLOW URINE MINIMAL OUTPUT. PAS STOCKINGS REPLACED ON PT. DIALYSIS ACCESS SITE TO RIGHT GROIN CON'T TO HAVE CDI DRESSING AND THIS RN WAS ABLE TO DRAW LABS OFF THIS LINE WITH NO ISSUES. JORDYN WRIST RESTRAINTS CON'T TO BE IN PLACE WITH NO ISSUES TO SKIN. PT CON'T TO HAVE EXTREMITIES ELEVATED ON PILLOWS TO HELP WITH CIRCULATION. WILL CON'T TO MONITOR UNTIL BED SIDE REPORT TO ONCOMING RN.
--- NOTE | 2020-02-23 07:41 | NUR ---
ASSUMED CARE: RECEIVED REPORT FROM SHASHA RN. PT IS CURRENTLY ON VENT WITH SPONTANIOUS PRESSURE SUPPORT OF 8/. ATTEMPTED TO PUT HIM ON SPONTANIOUS WITH NO TUBE COMPENSATION AND PT DID NOT TOLLERATE AT ALL. TITLE VOLUMES WERE LOW. RETURNED TO PREVISOUS SETTINGS. PT RECEIVING TUBE FEEDINGS THROUGH THE J TUBE AT 10ML/HR. PROPOFOL IS NOTED TO BE AT 50 MCG/KG/MIN, NS @ TKO, FENTYNAL @ 150 MCG/HR, PRECEDEX @ 1.4 MCG/KG/HR, AND TPN @ 75 ML/HR. NATALIIA DRAIN IS NOTED TO BE COMPRESSED WITH MINIMAL OUTPUT. OG TUBE IS TO LOW INT SUCTION WITH A LARGE AMOUNT OF OUTPUT FROM THE NIGHT. WILL CONTINUE TO MONIOTOR AND ASSESS FURTHER.
--- NOTE | 2020-02-23 07:55 | NUR ---
DR NETTLES: IN TO ASSESS ABD SITES. REMOVES BLANCA DRESSING AND ALL OTHER DRESSINGS AROUND J-TUBE AND NATALIIA DRAIN. COVERED WITH NON ADHESIVE DRESSINGS AND CLOTH TAPE TO HOLD IN PLACE. ABD IS NOTED TO BE DISTENDED WITH HYPO ACTIVE BOWEL TONES, DR NETTLES STOPPED TUBE FEEDINGS.
--- NOTE | 2020-02-23 08:06 | NUR ---
JG-TUBE FLUSHED AND CLAMPED
--- NOTE | 2020-02-23 15:37 | NUR ---
DIALYSIS IN THE ROOM AT THIS TIME.
--- NOTE | 2020-02-23 20:00 | NUR ---
ASSUMED CARE: PT INTUBATED AND SEDATED. MOVES ALL 4 EXTREMITIES. COUGH INTACT. RESPONDS TO NOXIOUS STIMULI. AFEBRILE. INCREASINGLY HYPERTENSIVE WITH SBP 160-170S. LUNG SOUNDS COARSE. ON PS 8/5/FIO2 35%. SPO2 >90%. OGT IN PLACE TO LIS. BROWN OUTPUT. PT HAS J TUBE TO L ABD THAT IS CLAMPED. NATALIIA DRAIN TO R ABD WITH SEROSANGIOUNESS OUTPUT. MIDLINE ABD INCISION-DRESSING C/D/I. PICC TO JEFFREY. OCCASIONALLY POSITIONAL. FENTANYL GTT INFUSING AT 12.5MLS/HR. DOSAGE IS 50MCG. PROPOFOL IS AT 50MCG AND PRECEDEX IS INFUSING AT 1. PT ALSO HAS A R FEM TRIALYSIS CATH IN PLACE. ALL TF IS ON HOLD. PT IS CURRENLTY ON CPN AT 75MLS/HR. WILL CONTINUE TO MONITOR
--- NOTE | 2020-02-23 21:17 | NUR ---
FENTANYL GTT REPLACED. 11 MLS WASTED-VERIFIED WASTE WITH JALEN HEAD AND JALEN HAUSER. PUMP CLEARED 43.2MLS INFUSED.
[2020-02-24 04:50] LABS: Albumin, Blood 1.6 g/dL (3.4-5.0); Albumin/Globulin Ratio 0.4 (0.8-1.8); Bilirubin, Total 0.4 mg/dL (0.1-1.0); Bun/Creatinine Ratio 17.1 (12.0-20.0); Calcium, Blood 7.9 mg/dL (8.5-10.1); Creatinine, Blood 5.54 mg/dL (0.60-1.20); Globulin, Blood 4.1 g/dL (2.2-4.0); Magnesium, Blood 2.7 mg/dL (1.6-2.4); Potassium, Blood 3.2 mmol/L (3.5-5.5); Total Protein, Blood 5.7 g/dL (6.4-8.2)
[2020-02-24 04:56] LABS: Phosphorus, Blood 4.6 mg/dL (2.5-4.9)
--- NOTE | 2020-02-24 05:40 | NUR ---
SEDATION VACATION DONE. DIDNT TOLERATE WELL. PT WAS ABLE TO OPEN EYES BUT DIDNT FOLLOW ANY COMMANDS. RR INCREASED TO HIGH 30S, SBP IN THE 190S, HR IN THE HIGH 110S-120. SEDATION TURNED BACK ON AND PT GIVEN FENTANYL 100MCG IV AND ATIVAN 2MG IV. CURRENTLY PT IS CALM, NOT FIGHTING THE VENT
[2020-02-24 05:45] LABS: PCO2 Arterial 36.3 mmHg (35-45); PO2 Arterial 69.3 mmHg (80-100); pH Blood Arterial 7.42 (7.35-7.45)
--- NOTE | 2020-02-24 06:05 | NUR ---
SHIFT SUMMARY: NO ACUTE CHANGES T/O SHIFT. PT SBP ELEVATED. DID NOT RESPOND TO LABETOLOL OR HYDRALYZINE. PS VENT SETTINGS REMAIN THE SAME. JTUBE FLUSHED WITH 30CC NS. OGT TO LIS WITH BROWN OUTPUT. SEAY IN PLACE. NATALIIA DRAIN WITH SEROSANGIOUNESS OUTPUT. SEE LAST NN REGARDING SEDATION VACATION AND NEURO STATUS. WILL PASS REPORT TO ONCOMING SHIFT
[2020-02-24 09:41] LABS: Source, Urine Catheter
[2020-02-24 09:50] LABS: Appearance, Urine Clear (Clear); Bilirubin, Urine Neg (Neg); Blood, Urine 1+ (Neg); Color, Urine Yellow (P-Yellow); Glucose Qualitative, Urine Neg (Neg); Ketones, Urine Neg (Neg); Leukocyte Esterase, Urine 1+ (Neg); Nitrite, Urine Neg (Neg); Protein, Urine 2+ (Neg); Urobilinogen, Urine NORM (Normal)
[2020-02-24 10:10] LABS: Bacteria Few /hpf; Squamous Epithelial Cells Rare /hpf (Few)
--- NOTE | 2020-02-24 10:44 | NUR ---
ASSUMED CARE OF PT AT 0700. PT SEDATED ON PROPOFOL AT 65MCG, PRECEDEX AT 1.4MCG AND FENT 50MCG/HR FOR MECH VENT. ON ASSESSMENT PT APPEARS UNCOMFORTABLE; GRIMACING, LABORED BREATHING, RESP RATE 40'S, HTN. ATIVAN 2MG GIVEN W GOOD EFFECT. PT TEMP 101.1. DR PORTER NOTIFIED; SUÁREZ CX'S ORDERED. BLOOD CX , SPUTUM SAMPLE, AND UA SENT. TYLENOL [place] ORDERED AND GIVEN. RECTAL TEMP PROBE PLACED. PT TEMP NOW 100.4. PT HAS HAD 300CC DARK BROWN CONTENT FROM OGT IN PAST 2HRS. DR LENZ AT BEDSIDE; SPOKE W DR PORTER. PT TO HAVE CT W/O CONTRAST OF ABD TODAY. ABD DISTENDED, ABSENT BT'S. HOLD ABD PRESSURES FOR NOW PER DR PORTER. ETT PLACED AT 24CM AT TEETH BY RT PER DR PORTER. VENT SETTINGS CHANGED BY DR PORTER TO AC14/TV500. HTN TREATED W LABETALOL.
--- NOTE | 2020-02-24 12:47 | NUR ---
PT TO CT SCAN AT 1200; ABD SCANNED. PT TOLERATED PROCEDURE WELL. LUNGS UNCHANGED. SEDATION UNCHANGED. VANCO AND DIFLUCAN ADDED. PT'S UPDATED VIA PHONE.
--- NOTE | 2020-02-24 19:01 | NUR ---
PT TMAX 101.1 THIS AM THEN DROPPED AFTER TYLENOL AND STAYED LESS THAN 100.0 FOR SHIFT. ABD REMAINS DISTENDED W ABSENT BT'S. OGT PUT OUT 600CC TODAY DARK BROWN FLUID. PT MADE 400CC U/O; HD SCHEDULED FOR TOMORROW. PT REMAINED HTN T/O SHIFT DESPITE PRN MEDS. SEDATION MEDS REMAIN THE SAME AND PT REQUIRED THESE DOSES TO TOLERATE THE VENT.
--- NOTE | 2020-02-24 20:00 | NUR ---
ASSUMED CARE: NEURO STATUS UNCHANGED. PT IS INTUBATED AND SEDATED ON PROPOFOL, PRECEDEX, FENTANYL GTT. LUNG SOUNDS COARSE. ON AC SETTINGS 14/500/5/30%. PT BREATH STACKING ON THOSE SETTINGS. SWITCHED TO SPON. LARGE AMT OF OUPUT FROM OG. PT HTN DURING DAYSHIFT-NOT RESPONDING TO PRN BP MEDS. SEAY DRAINING CLEAR YELLOW URINE. PICC TO JEFFREY. TRIALYSIS CATH TO R FEM. MIDLINE ABD DRESSING. NATALIIA DRAIN TO R ABD. J TUBE TO L ABD-CLAMPED. WILL CONTINUE TO MONITOR
[2020-02-25 04:29] LABS: BASOPHILS PERCENT AUTO 0 % (0-2); EOSINOPHILS ABSOLUTE AUTO 0.04 K/mm3 (0.00-0.68); EOSINOPHILS PERCENT AUTO 1 % (0-6); Hematocrit 23.6 % (37.0-53.0); IMMATURE GRAN ABSOLUTE AUTO 0.03 K/mm3 (0.00-0.10); IMMATURE GRAN PERCENT AUTO 1 % (0-1); LYMPHOCYTES ABSOLUTE AUTO 0.84 K/mm3 (0.84-5.20); LYMPHOCYTES PERCENT AUTO 20 % (21-46); MONOCYTES ABSOLUTE AUTO 0.39 K/mm3 (0.16-1.47); MONOCYTES PERCENT AUTO 9 % (4-13); Mean Corpuscular HGB 32.9 pg (26.0-34.0); Mean Corpuscular HGB Conc 33.9 g/dL (31.5-36.5); Mean Corpuscular Volume 97 fL (80-100); Mean Platelet Volume 9.8 fL (9.1-12.4); NEUTROPHILS ABSOLUTE AUTO 2.94 K/mm3 (1.96-9.15); NEUTROPHILS PERCENT AUTO 69 % (41-73); Platelet Count 88 K/mm3 (150-400); RDW Coefficient Variation 12.2 % (11.7-14.2); RDW Standard Deviation 43.8 fL (35.1-46.3); Red Blood Cell Count 2.43 M/mm3 (4.30-5.90); White Blood Cell Count 4.24 K/mm3 (4.00-11.30)
[2020-02-25 04:41] LABS: International Normalized Ratio 0.91; Prothrombin Time Results 9.8 Sec (9.7-11.5)
[2020-02-25 04:55] LABS: Albumin, Blood 1.6 g/dL (3.4-5.0); Albumin/Globulin Ratio 0.4 (0.8-1.8); Bilirubin, Total 0.5 mg/dL (0.1-1.0); Bun/Creatinine Ratio 20.8 (12.0-20.0); Calcium, Blood 7.9 mg/dL (8.5-10.1); Creatinine, Blood 5.81 mg/dL (0.60-1.20); Magnesium, Blood 2.9 mg/dL (1.6-2.4); Phosphorus, Blood 7.3 mg/dL (2.5-4.9); Potassium, Blood 3.8 mmol/L (3.5-5.5); Total Protein, Blood 5.6 g/dL (6.4-8.2)
[2020-02-25 05:36] LABS: PCO2 Arterial 36.9 mmHg (35-45); PO2 Arterial 84.5 mmHg (80-100); pH Blood Arterial 7.35 (7.35-7.45)
--- NOTE | 2020-02-25 06:08 | NUR ---
SHIFT SUMMARY: AT BEGINNING OF SHIFT PT WAS SWITCHED FROM AC SETTING TO SPON D/T PT BREATH STACKING AND TRIGGERING VENT. GERMAN INFORMED AND WOULD PREFER PT TO BE ON AC TO REDUCE RISK OF SPON LUNG INJURY. SEDATION INCREASED- PROPOFOL TO 80MCG, PRECEDEX REMAINS AT 1.4, FENTANYL AT 50MCG/HR, AND 4MG ATIVAN GIVEN. PT SWITCHED BACK TO AC AND TOLERATED FOR A SHORT PERIOD OF TIME BEFORE BREATH STACKING AGAIN. GERMAN OK WITH PT GOING BACK TO SPON. LEFT SEDATION AT ABOVE SETTINGS. LUNGS COARSE. SATS >90%. HTN UP UNTIL 0545 THIS AM. WILL PASS REPORT TO ONCOMING SHIFT.
--- NOTE | 2020-02-25 09:11 | NUR ---
CARE ASSUMED OF PT AT 0700. PT SEDATED ON PROPOFOL AT 80MCG, PRECEDEX AT 1.4MCG, AND FENT GTT AT 50MCG/HR IN ORDER TO TOLERATE VENT. PT DOES GRIMACE W CARE, AND HAS A COUGH, GAG, AND SWALLOW. ABD FIRM BUT PT HAS IMPROVED BT'S FROM YESTERDAY; THEY ARE NOW HYPOACTIVE. OGT TO LIS; HAS SLOWED AND COLORED HAS LIGHTENED TO A LIGHT BROWN. DRSG TO MIDLINE INCISION CHANGED, GEORGETTE REMAIN INTACT; SKIN DRY W/O REDNESS. DRAINAGE SPONGE CHANGED TO R NATALIIA AND FEEDING J TUBE; SCANT DRAINAGE. NATALIIA IS PUTTING OUT SS FLUID; SCANT AMT. DR PORTER IN AT 0900 TO SEE PT; GIVEN COMPLETE UPDATE. PT ON SPONT W PS8, PEEP5, FIO2 30%. LIUNGS COARSE W WHEEZING TO R SIDE. THORACENTESIS ORDERED FOR TOMORROW. HD PLANED FOR NOON TODAY. PT VERY HTN W SBP >200. LABETALOL IV GIVEN W GOOD EFFECT.
--- NOTE | 2020-02-25 12:45 | NUR ---
PT'S TV >1000, RT CALLED TO BEDSIDE. ATIVAN 4MG GIVEN; NO IMPROVEMENT. DR PORTER CALLED AND NOTIFIED. ORDERS TO KEEP PT ON PS 8/5. HD IS PROGRESSING W/O ISSUES.
--- NOTE | 2020-02-25 13:08 | NUR ---
DR WAITE AT BEDSIDE; SPOKE W DR PORTER REGARDING PLAN.
--- NOTE | 2020-02-25 16:22 | NUR ---
PT TOLERATED HD WELL, 4.5L TAKEN OFF. BP IMPROVED. PT CONT TO TAKE TV >1000. TEMP IMPROVED AT 98.6. PT'S BREATHING APPEARS MORE COMFORTABLE, BREATHING NO LONGER LABORED. SEDATION MEDS REMAIN UNCHANGED.
--- NOTE | 2020-02-25 20:34 | NUR ---
ASSUMED CARE OF PT, REPORT RCV'D FROM JALEN MCGINNIS PT INTUBATED AND SEDATED. VENT SETTINGS PS 8/5 30%, SATS>90%. PROPOFOL @ 80 MCG/KG/MIN, PRECEDEX 1.4 MCG/KG/HR, FENTANYL GTT 50 MCG/HR. PT EASILY AGITATED WHEN SEDATION TURN DOWN. PT RESPONDS TO PAINFUL STIMULI, FACIAL GRIMACING AND PULLING AWAY WITH ORAL CARE. OGT TO LIS, MODERATE AMOUNT OF BROWN OUTPUT. SEAY PATENT AND DRAINING TO GRAVITY. RECTAL TEMP PROBE IN PLACE, PT CURRENTLY AFEBRILE. J-TUBE CLAMPED, ORDER TO FLUSH Q6H WITH 30 ML H20. NATALIIA DRAIN TO RIGHT LOWER ABDOMEN, SCANT AMOUNT OF SS FLUID IN BULB. MIDLINE DRESSING C/D/I. SEE FULL SHIFT ASSESSMENT
[2020-02-26 03:31] LABS: BASOPHILS PERCENT AUTO 0 % (0-2); EOSINOPHILS ABSOLUTE AUTO 0.04 K/mm3 (0.00-0.68); EOSINOPHILS PERCENT AUTO 1 % (0-6); Hematocrit 24.2 % (37.0-53.0); Hemoglobin 8.2 g/dL (13.5-17.5); IMMATURE GRAN ABSOLUTE AUTO 0.03 K/mm3 (0.00-0.10); IMMATURE GRAN PERCENT AUTO 1 % (0-1); LYMPHOCYTES ABSOLUTE AUTO 0.79 K/mm3 (0.84-5.20); LYMPHOCYTES PERCENT AUTO 19 % (21-46); MONOCYTES ABSOLUTE AUTO 0.47 K/mm3 (0.16-1.47); MONOCYTES PERCENT AUTO 11 % (4-13); Mean Corpuscular HGB 32.3 pg (26.0-34.0); Mean Corpuscular HGB Conc 33.9 g/dL (31.5-36.5); Mean Corpuscular Volume 95 fL (80-100); Mean Platelet Volume 9.7 fL (9.1-12.4); NEUTROPHILS ABSOLUTE AUTO 2.78 K/mm3 (1.96-9.15); NEUTROPHILS PERCENT AUTO 68 % (41-73); Platelet Count 93 K/mm3 (150-400); RDW Coefficient Variation 11.9 % (11.7-14.2); RDW Standard Deviation 41.7 fL (35.1-46.3); Red Blood Cell Count 2.54 M/mm3 (4.30-5.90); White Blood Cell Count 4.11 K/mm3 (4.00-11.30)
[2020-02-26 03:45] LABS: International Normalized Ratio 0.96; Prothrombin Time Results 10.3 Sec (9.7-11.5)
[2020-02-26 04:00] LABS: Albumin, Blood 1.6 g/dL (3.4-5.0); Albumin/Globulin Ratio 0.4 (0.8-1.8); Bilirubin, Total 0.4 mg/dL (0.1-1.0); Bun/Creatinine Ratio 23.3 (12.0-20.0); Calcium, Blood 8.3 mg/dL (8.5-10.1); Creatinine, Blood 4.5 mg/dL (0.60-1.20); Magnesium, Blood 2.7 mg/dL (1.6-2.4); Phosphorus, Blood 7.4 mg/dL (2.5-4.9); Potassium, Blood 4.1 mmol/L (3.5-5.5); Total Protein, Blood 5.6 g/dL (6.4-8.2)
[2020-02-26 05:13] LABS: PCO2 Arterial 35.4 mmHg (35-45); PO2 Arterial 82.8 mmHg (80-100); pH Blood Arterial 7.45 (7.35-7.45)
--- NOTE | 2020-02-26 06:16 | NUR ---
SHIFT SUMMARY NO ACUTE CHANGES OVERNIGHT. PT REMAINS INTUBATED ON PS 8/5 25%. SEDATION: PROPOFOL 70 MCG/KG/MIN, PRECEDEX 1.4 MCG/KG/HR, FENTANYL 50 MCG/HR. PT REMAINS RESPONSIVE TO PAINFUL STIMULI. DURING SEDATION VACATION PT QUICKLY BECAME AGITATED AND HYPERTENSIVE, SEDATION RESTARTED. 900 ML URINARY OUTPUT, 15 ML SS OUTPUT FROM NATALIIA DRAIN, 50 ML DARK GREEN OUTPUT FROM NGT. WILL REPORT TO DAYSHIFT NURSE.
--- NOTE | 2020-02-26 10:00 | NUR ---
CARE ASSUMED ASSESSMENT COMPLETED, PT REMAINS SEDATED WITH PROPOFOL, FENTANYL, AND PRECEDEX, ONLY RESPONDING WITH GRIMACES TO NOXIOUS STIMULI AT THIS TIME. INSTRUCTIONS FROM DR. MESSINA TO DECREASE PROPOFOL AND INCREASE FENTANYL GTT, SEE FLOWSHEET FOR TITRATIONS. PT BARRON AFTER DECREASE IN SEDATION. VENT SPONTANEOUS ON THIS RN'S ARRIVAL, SETTINGS CHANGED BY DR. MESSINA TO SIMV WITH Vt 500, FIO2 30%. LS COARSE T/O WITH FIN EXP WHEEZES IN BASES, RECEIVING NEB TREATMENTS. SMALL/MOD AMOUNT YELLOW SECRETIONS FROM ETT. HR SINUS, PT WITH GENERALIZED 2-3+ EDEMA. BP INCREASING, WILL MEDICATE PER JUN. ABD ROUND, FIRM BUT SOFTER THAN LAST WEEK, OCCASIONAL BT'S IN ALL QUADS. OGT OUTPUT SMALL, J TUBE L ABD CLAMPED. OK TO USE OGT FOR PO MEDS PER DR. NETTLES. DRESSING TO MIDLINE ABD D/I WITH SCANT LIGHT SHADOWING, NATALIIA DRAIN TO R ABD WITH SMALL AMOUNT SS FLUID. URINE OUTPUT IMPROVING, >30ML/HR AT THIS TIME. SMALL MUCOUSY BM. CPN INFUSING AT 75ML/HR.
--- NOTE | 2020-02-26 14:55 | NUR ---
UPDATE PT APPEARED TO BE TOLERATING WELL FOR A SHORT TIME, THEN BEGAN STACKING BREATHS. RT NOTIFIED, ETT SUCTIONED, STACKING CONTINUES, NOTIFIED. VENT CHANGED TO AC 14, Vt 470, PEEP 5, FIO2 30% BY DR, PT TOLERATING WELL, NO STACKING NOTED. PROPOFOL 60, PRECEDEX 1.4, FENTANYL 125MCG/HR. APPARATUS OPERATOR AT BEDSIDE AT 1300, ORDERS FROM DR. MESSINA TO DC DIALYSIS CATH AFTER DIALYSIS COMPLETED. PT MEDICATED MULTIPLE TIMES FOR HTN WITH MINIMAL RESULTS, DR. GANDHI, NEW ORDERS.
--- NOTE | 2020-02-26 19:19 | NUR ---
SEDATION VACATION/END OF SHIFT PT TOLERATED DIALYSIS WELL, 4L REMOVED PER REPORT, BP STABLE T/O. VENT SETTINGS REMAIN AC 14, Vt 470, PEEP 5, FIO2 30%, FLOW 30, PT TOLERATING WELL, Vt 500'S, RR 15, SPO2 >95%, NO STACKING BREATHS NOTED. SEDATION VACATION COMPLETED, PT WAKES, OPENS EYES, TRACKS, FOLLOWS SOME COMMANDS. RESEDATED WITH PREVIOUS SEDATION RATES FOR RESTLESSNESS/HTN. HTN DID NOT RESOLVE AFTER SEDATION RESUMED, MEDICATED WITH LABETOLOL AND LORAZEPAM WITH NO RESULTS, NO HYDRALAZINE AVAILABLE. DR. MESSINA NOTIFIED, NEW ORDERS RECEIVED. PT AFEBRILE THIS SHIFT, SMALL AMOUNT SECRETIONS FROM ETT, ABD UNCHANGED, OUTPUT FROM OGT AND NATALIIA DRAIN SMALL. CPN RATE DECREASED TO 55ML/HR. NO VISITORS OR CALLS TODAY, REPORT TO ONCOMING SHIFT.
--- NOTE | 2020-02-26 20:13 | NUR ---
ASSUMED CARE OF PT, REPORT RCV'D FROM JALEN NAPOLES. PT INTUBATED AND SEDATED. VENT SETTINGS AC 14/470/5/30% (PER DR. MESSINA DO NOT DROP FIO2 BELOW 30%), SATS>90%. LUNG SOUNDS COARSE T/O. PROPOFOL @ 55 MCG/KG/MIN, FENTANYL GTT @ 125 MCG/HR, PRECEDEX 1.4 MCG/KG/HR FOR SEDATION. PT WITHDRAWS FROM PAINFUL STIMULI AND DURING ORAL CARE. BOWEL TONES ABSENT BILATERAL UPPER QUADRANTS, HYPOACTIVE BILATERAL LOWER QUADRANT. PT SIT WITH HR 100-110. PT CONTINUES TO BE HYPERTENSIVE FOLLOWING DAYSHIFT SEDATION VACATION. CLONIDINE ADMINSTERED PER EMAR. PT'S TEMP 101.3 AT START OF SHIFT, RECTAL TYLENOL ADMINISTERED AND RECTAL TEMP PROBE INSERTED. SEE FULL SHIFT ASSESSMENT
--- NOTE | 2020-02-26 22:33 | NUR ---
PT CONTINUES TO BE HYPERTENSIVE AND FEBRILE. PACKED GROIN AND AXILLA WITH ICE AND PLACED FAN ON PT, CURRENT TEMP 102. PT HYPERTENSIVE DESPITE CLONIDINE, NORVASC AND LABETALOL. PT KICKING FEET AND COUGHING. INCREASED PROPOFOL TO 65 MCG/KG/MIN.
[2020-02-27 04:45] LABS: BASOPHILS ABSOLUTE AUTO 0.02 K/mm3 (0.00-0.23); BASOPHILS PERCENT AUTO 0 % (0-2); EOSINOPHILS ABSOLUTE AUTO 0.07 K/mm3 (0.00-0.68); EOSINOPHILS PERCENT AUTO 1 % (0-6); Hematocrit 28.8 % (37.0-53.0); Hemoglobin 9.5 g/dL (13.5-17.5); IMMATURE GRAN ABSOLUTE AUTO 0.04 K/mm3 (0.00-0.10); IMMATURE GRAN PERCENT AUTO 1 % (0-1); LYMPHOCYTES ABSOLUTE AUTO 1.05 K/mm3 (0.84-5.20); LYMPHOCYTES PERCENT AUTO 22 % (21-46); MONOCYTES PERCENT AUTO 12 % (4-13); Mean Corpuscular HGB 32.5 pg (26.0-34.0); Mean Corpuscular Volume 99 fL (80-100); Mean Platelet Volume 9.8 fL (9.1-12.4); NEUTROPHILS ABSOLUTE AUTO 3.07 K/mm3 (1.96-9.15); NEUTROPHILS PERCENT AUTO 63 % (41-73); Platelet Count 103 K/mm3 (150-400); RDW Coefficient Variation 12.4 % (11.7-14.2); Red Blood Cell Count 2.92 M/mm3 (4.30-5.90); White Blood Cell Count 4.85 K/mm3 (4.00-11.30)
[2020-02-27 05:02] LABS: Bun/Creatinine Ratio 24.7 (12.0-20.0); Calcium, Blood 7.9 mg/dL (8.5-10.1); Creatinine, Blood 3.76 mg/dL (0.60-1.20); Potassium, Blood 3.9 mmol/L (3.5-5.5)
--- NOTE | 2020-02-27 06:06 | NUR ---
SHIFT SUMMARY PT REMAINS INTUBATED AND SEDATED. NO CHANGES TO VENT SETTINGS OR SEDATION. PT REMAINS HYPERTENSIVE AND FEBRILE. TMAX 102.2, CURRENT TEMP 101.0. PT GIVEN PRN LABETALOL PER EMAR WITH LITTLE EFFECT TO BLOOD PRESSURE. SBP 170'S-190'S, DBP 100-110. PER PHARMACY HYDRALAZINE IS UNAVAILABLE AT THIS TIME. CLONIDINE AND NORVASC ADMINISTERED VIA OGT DIRECTED. WILL REPORT TO DAYSMAFT NURSE.
--- NOTE | 2020-02-27 13:03 | NUR ---
REASSESSMENT DURING DR. MESSINA'S ROUNDS TODAY HE GAVE INSTRUCTIONS TO TURN PROPOFOL DOWN TO 40MCG/KG/MIN. PT TOLERATED SO MD GAVE ISNTRUCTIONS TO PLACE NG TUBE, THEN TURN ALL SEDATION OFF AND PREPARE FOR EXTUBATION. RT AT THE BEDSIDE AND SWITCHED PT TO PS. PT'S WAS AT THE BEDSIDE AND WAS UPDATED ON PLAN AND RISKS FOR REINTUBATION BY DR. MESSINA. PT EXTUBATED AT 1103 TO 4L/NC BUT QUICKLY STARTED DESATURATING SO RT PLACED HIM ON CPAP AT 30% FIO2. PT'S BREATHING STILL APPEARED A LITTLE LABORED, BUT PT WAS TOLERATING. PT HAD A VERY LARGE LIQUID BM PRIOR TO EXTUBATION THAT NEEDED CLEANING. PT REQUIRED FIO2 TO BE TURNED UP TO 50% WHILE GETTING CLEANED UP TO MAINTAIN SATS ABOVE 90%. AFTER PT WAS CLEAN HIS BREATHING WAS VERY LABORED, HR UP TO THE 150S, TEMPERATURE UP TO 103F. RT AND DR. MESSINA TO THE BEDSIDE AND ULTIMATELY DR. MESSINA DECIDED TO REINTUBATE. PT DESATURATED QUICKLY WHEN CPAP TAKEN OFF AND REQUIRED 10-20MIN OF BAGGING TO GET SPO2 BACK UP TO 90%. PT REINTUBATED AT 1223 WITH 8.0 TUBE AND 26 AT THE TEETH. POSITIVE COLOR CHANGE AND BREATH SOUNDS. 4MG VERSED GIVEN AT 1204 AND 100MG PROPOFOL GIVEN AT 1204 AND 1217 FOR A TOTAL OF 200MG GIVEN FOR INTUBATION. PT'S UPDATED BY DR. MESSINA AGAIN. NG REMAINS IN PLACE. PROPOFOL AND PRECEDEX INFUSING PER DR. MESSINA. HOLD OFF ON FENTANYL GTT AND USE PUSHES FOR THE TIME BEING. PT'S BREATHING STILL A LITTLE LABORED ON THE VENT BUT MORE COMFORTABLE THAN HE WAS. TYLENOL SUPPOSITORY GIVEN FOR FEVER. CONTINUING TO MONITOR.
[2020-02-27 16:04] LABS: Base Excess Venous -3.9 mmol/L; Bicarbonate Venous 20.9 mmol/L (24.0-30.0); PCO2 Venous 50.9 mmHg (38-42); PO2 Venous 60.9 mmHg (38-42); pH Blood Venous 7.27 (7.34-7.37)
--- NOTE | 2020-02-27 17:44 | NUR ---
SHIFT SUMMARY PT WAS EXTUBATED AND REINTUBATED TODAY. PARALYTICS STARTED AFTER REINTUBATION AND PT ON PROPOFOL, PRECEDEX AND FENTANYL GTTS FOR SEDATION BIS MONITOR READS BETWEEN 40-60. TRAIN OF 4 IS STILL 4/4 BUT PT IS RIDING THE VENT AND NOT MOVING HIS BODY OTHERWISE. FIO2 HAS BEEN ABLE TO BE TITRATED DOWN TO 40% CURRENTLY, PEEP REMAINS AT 10 AND PT'S BREATHING APPEARS RELAXED. ST IN THE LOW 100S CURRENTLY. PT WAS UP IN THE 150S POST EXTUBATION AND 130S POST REINTUBATION BEFORE PARALYTIC STARTED. BP IS IMPROVED THIS AFTERNOON WITH SYSTOLIC IN THE 120S AND DIASTOLIC IN THE 90S MOSTLY. LUNGS ARE COARSE, THICK RED/WHITE SPUTUM BEING SUCITIONED OUT. NG OUTPUT HAS A EBONY TINT TO IT WELL SINCE NG WAS PLACED. J TUBE FLUSHING EASILY. BOWEL TONES ACTIVE AND PT HAD VERY LARGE LIQUID BROWN BM TODAY. NATALIIA WITH ONLY 10ML OUTPUT. MIDLINE INCISION C/D/I. SEAY HAD 900 CL YELLOW URINE. PT'S WAS IN TODAY AND WAS FULLY UPDATED BY DR. MESSINA.
[2020-02-27 18:15] LABS: Base Excess Venous -2.7 mmol/L; Bicarbonate Venous 21.9 mmol/L (24.0-30.0); PCO2 Venous 50.4 mmHg (38-42); PO2 Venous 69.2 mmHg (38-42); pH Blood Venous 7.29 (7.34-7.37)
--- NOTE | 2020-02-27 21:27 | NUR ---
ASSUMED CARE OF PT, REPORT RCV'D FROM JUAN LUIS Pablo RN. PT INTUBATED, VENT SETTINGS 18/480/10/30%. SEDATED WITH PROPOFOL 40 MCG/KG/MIN, PRECEDEX 1.4 MCG/KG/HR, FENTANYL GTT 125 MCG/HR. PT PARAZLYZED WITH NIMBEX 2.5 MCG/KG/MIN. BIS MONITOR IN PLACE, RANGE 40-60. TRAIN OF FOUR 4 OUT OF 4 NEAR EYEDIVINA, DR. MESSINA STATES OK PER DAYSHIFT NURSE. NGT TO LIS. SEAY PATENT AND DRAINING TO GRAVITY. SEE FULL SHIFT ASSESSMENT
--- NOTE | 2020-02-28 00:55 | NUR ---
PT NOTED TO BE MOVING HIS LEGS. NIMBEX INCREASED TO 3 MCG/KG/MIN AND THEN TO 3.5 MCG/KG/MIN. PT APPEARS MORE RELAXED. BIS 57-60.
[2020-02-28 04:02] LABS: BASOPHILS ABSOLUTE AUTO 0.01 K/mm3 (0.00-0.23); BASOPHILS PERCENT AUTO 0 % (0-2); EOSINOPHILS ABSOLUTE AUTO 0.03 K/mm3 (0.00-0.68); EOSINOPHILS PERCENT AUTO 1 % (0-6); Hematocrit 26.6 % (37.0-53.0); Hemoglobin 8.8 g/dL (13.5-17.5); IMMATURE GRAN ABSOLUTE AUTO 0.04 K/mm3 (0.00-0.10); IMMATURE GRAN PERCENT AUTO 1 % (0-1); LYMPHOCYTES ABSOLUTE AUTO 0.75 K/mm3 (0.84-5.20); LYMPHOCYTES PERCENT AUTO 13 % (21-46); MONOCYTES ABSOLUTE AUTO 0.55 K/mm3 (0.16-1.47); MONOCYTES PERCENT AUTO 10 % (4-13); Mean Corpuscular HGB 32.6 pg (26.0-34.0); Mean Corpuscular HGB Conc 33.1 g/dL (31.5-36.5); Mean Corpuscular Volume 99 fL (80-100); NEUTROPHILS ABSOLUTE AUTO 4.33 K/mm3 (1.96-9.15); NEUTROPHILS PERCENT AUTO 76 % (41-73); Platelet Count 103 K/mm3 (150-400); RDW Coefficient Variation 12.5 % (11.7-14.2); RDW Standard Deviation 45.5 fL (35.1-46.3); White Blood Cell Count 5.71 K/mm3 (4.00-11.30)
[2020-02-28 04:22] LABS: Alanine Aminotransfer (ALT/SGP 9 U/L (12-78); Albumin, Blood 1.5 g/dL (3.4-5.0); Albumin/Globulin Ratio 0.4 (0.8-1.8); Alk Phos 104 U/L (50-136); Anion Gap 10 mmol/L (6-16); Aspartate Aminotrans (AST/SGOT 22 U/L (12-37); Bilirubin, Total 0.4 mg/dL (0.1-1.0); Blood Urea Nitrogen 108 mg/dL (8-24); Bun/Creatinine Ratio 27.3 (12.0-20.0); CO2, Blood 24 mmol/L (21-32); Calcium, Blood 7.8 mg/dL (8.5-10.1); Chloride, Blood 103 mmol/L (98-108); Creatinine, Blood 3.96 mg/dL (0.60-1.20); Globulin, Blood 3.8 g/dL (2.2-4.0); Glomerular Filtration Rate 18 (60-); Glucose, Blood 137 mg/dL (70-99); Magnesium, Blood 2.2 mg/dL (1.6-2.4); Phosphorus, Blood 7.4 mg/dL (2.5-4.9); Potassium, Blood 4.3 mmol/L (3.5-5.5); Sodium, Blood 137 mmol/L (136-145); Total Protein, Blood 5.3 g/dL (6.4-8.2); Triglycerides 375 mg/dL (30-160); Vancomycin, Random 27.8 ug/mL
--- NOTE | 2020-02-28 05:35 | NUR ---
SHIFT SUMMARY PT REMAINS INTUBATED, AC 18/480/10/30%. NIMBEX INFUSING @ 3 MCG/KG/MIN, PROPOFOL REDUCED TO 35 MCG/KG/MIN TO MAINTAIN BIS WITHIN DESIRABLE RANGE. CURRENTLY BIS @57. FENTANYL GTT @ 125 MCG/HR, PRECEDEX @1.4 MCG/KG/HR. PT HAD 500 ML SIERRA URINARY OUTPUT, 50 ML GREEN OUTPUT FROM NGT, 10 ML SS OUTPUT FROM NATALIIA DRAIN. TMAX 100.4. BP LABILE T/O SHIFT. DR. NETTLES BY TO ASSESS PT, CONTINUE TO FLUSH JTUBE PER PREVIOUS ORDER. WILL REPORT TO DAYSHIFT NURSE
[2020-02-28 09:40] LABS: Base Excess Venous -4.2 mmol/L; PCO2 Venous 38.4 mmHg (38-42); PO2 Venous 52.3 mmHg (38-42); pH Blood Venous 7.35 (7.34-7.37)
--- NOTE | 2020-02-28 10:32 | NUR ---
ASSUMED CARE AT 0700 PT LAYING IN BED INTUBATED WITH VENT SETTINGS AC 18, TV 480, PEEP 10, FIO2 25%. NIMBEX INFSUING AT 3MCG/KG/MIN. PROPOFOL INFUSING AT 35MCG/KG/MIN. CPN INFUSING AT 55ML/HR (GOAL). PRECEDEX INFUSING AT 1.4MCG/KG/HR. FENTANYL INFUSING AT 125MGC/HR. J-P DRAIN PATENT AND DRAINING. J-TUBE CLAMPED. NG TO LIS. SEAY PATENT AND DRAINING TO GRAVITY. TRAIN OF 4. SEE SHIFT ASSESSMENT FOR FULL ASSESSMENT.
--- NOTE | 2020-02-28 18:12 | NUR ---
END OF SHIFT SUMMARY PT CONT TO BE INTUBATED WITH VENT SETTINGS AC 18, TV 480, PEEP 8, FIO2 30%. NIMBEX INFUSING AT 3MCG/KG/MIN. PROPOFOL INFUSING AT 35MCG/KG/MIN. CPN INFUSING AT 55ML/HR. PRECEDEX INFUSING AT 1.4MCG/KG/HR. FENTANYL INFUSING AT 100MCG/HR. PT CONT TO HAVE TRAIN OF 4. NG TO LIS. J-P DRAIN DRESSING CHANGED AND HAD VERY LITTLE OUTPUT. J-TUBE DRESSING CHANGED. PICC LINE DRESSING CHANGED. TMAX 98.7. SBP 100-170. HR 75-110. SEAY PATENT AND DRAINING TO GRAVITY. WILL REPORT TO PM RN WHEN AVAILABLE.
--- NOTE | 2020-02-28 19:30 | NUR ---
ASSUMED PT CARE BEDSIDE REPORT WITH LUIS A RN AND ECHO RN AT 1910. ASSUMED PT CARE. PT INTUBATED, SEDATED AND PARALYZED. CURRENT VENT SETTINGS AC18/480/6/30. PT HAS BIS MONITORING (RANGE 40-60) CURRENTLY 70S AND TRAIN OF 4 OUT 4. NG TO LEFT NARE TO LIS WITH GREEN DRAINAGE. NATALIIA DRAIN TO RIGHT MID ABD, BULB COMPRESSED. JTUBE TO LEFT ABD, CLAMPED (FLUSHED WITH 30ML H20 Q6HRS). SEAY DRAINING CLEAR YELLOW URINE. ABD FIRM, MILDLY DISTENDED. BOWEL TONES HYPOACTIVE. PT HAS PICC LINE TO JEFFREY WITH NIMBEX INFUSING @ 3MCG/KG/MIN, PROPOFOL INFUSING @ 35MCG/KG/MIN, NS INFUSING AT 10ML/HR, PRECEDEX INFUSING @ 1.4MCG/KG/HR, FENTANYL INFUSING @ 125MCG/HR, CLINIMIX INFUSING @ 55ML/HR. SITE WNL, DRESSING C/D/I. EXT SWOLLEN, NON PITTING. PT SKIN OVERALL INTACT. SURGICAL SITE TO MIDLINE ABD WITH NEW DRESSING IN PLACE, C/D/I. PER REPORT SURGICAL SITE WNL, GEORGETTE INTACT. LUNG SOUNDS CLEAR. SATS >92%. BP HTN AT THIS TIME. HR ST 110S. SEE FULL SHIFT ASSESSMENT.
[2020-02-29 04:31] LABS: BASOPHILS ABSOLUTE AUTO 0.01 K/mm3 (0.00-0.23); BASOPHILS PERCENT AUTO 0 % (0-2); EOSINOPHILS ABSOLUTE AUTO 0.05 K/mm3 (0.00-0.68); EOSINOPHILS PERCENT AUTO 1 % (0-6); Hematocrit 27.5 % (37.0-53.0); Hemoglobin 8.8 g/dL (13.5-17.5); IMMATURE GRAN ABSOLUTE AUTO 0.03 K/mm3 (0.00-0.10); IMMATURE GRAN PERCENT AUTO 1 % (0-1); LYMPHOCYTES PERCENT AUTO 17 % (21-46); MONOCYTES ABSOLUTE AUTO 0.44 K/mm3 (0.16-1.47); MONOCYTES PERCENT AUTO 8 % (4-13); Mean Corpuscular HGB 31.7 pg (26.0-34.0); Mean Corpuscular Volume 99 fL (80-100); Mean Platelet Volume 10.2 fL (9.1-12.4); NEUTROPHILS ABSOLUTE AUTO 3.98 K/mm3 (1.96-9.15); NEUTROPHILS PERCENT AUTO 74 % (41-73); Platelet Count 141 K/mm3 (150-400); RDW Coefficient Variation 12.7 % (11.7-14.2); RDW Standard Deviation 46.5 fL (35.1-46.3); Red Blood Cell Count 2.78 M/mm3 (4.30-5.90); White Blood Cell Count 5.41 K/mm3 (4.00-11.30)
[2020-02-29 04:49] LABS: Anion Gap 11 mmol/L (6-16); Blood Urea Nitrogen 121 mg/dL (8-24); Bun/Creatinine Ratio 29.4 (12.0-20.0); CO2, Blood 24 mmol/L (21-32); Calcium, Blood 8.3 mg/dL (8.5-10.1); Chloride, Blood 103 mmol/L (98-108); Creatinine, Blood 4.12 mg/dL (0.60-1.20); Glomerular Filtration Rate 17 (60-); Glucose, Blood 124 mg/dL (70-99); Sodium, Blood 138 mmol/L (136-145); Vancomycin, Random 21.6 ug/mL
--- NOTE | 2020-02-29 06:14 | NUR ---
SHIFT SUMMARY PT HAD UNEVENTFUL SHIFT. PT REMAINS INTUBATED, SEDATED AND PARALYZED. PT TOLERATING VENT SETTINGS AC 18/480/6/30 WELL, SATS >92%. LUNG SOUNDS COARSE AT TIMES TO UPPER LOBES, DIMINISHED TO LOWER LOBES. BP HYPERTENSIVE AT TIMES, REQUIRED MULT DOSES OF LABETOLOL TO CORRECT. PT ON BIS MONITOR, RANGES 38-80. TRAIN 07/21. PT HAS PICC LINE TO JEFFREY WITH MULT MEDS INFUSING: NIMBEX @ 3MCG/KG/MIN, PROPOFOL @ 35MCG/KG/MIN, PRECEDEX @ 1.4MCG/KG/HR, CLINIMIX @ 55ML/HR, NS @ 10ML/HR, FENTANYL @ 125MCG/HR. SITE WNL. DRESSING C/D/I. PT HAS NG TO LEFT NARE, CLEARISH GREEN DRAINAGE TO TUBING, TO LIS. SEAY DRAINING CLEAR YELLOW URINE. PULSES WEAK AND EQUAL. HR 79 SR. J TUBE TO LEFT ABD, CLAMPED, GETS FLUSHED WITH 30ML H20 Q6H. NATALIIA DRAIN TO MID ABD WITH SCANT CLEAR SEROUS LIQUID TO BULB. BED LOW. WILL REPORT TO ONCOMING RN.
--- NOTE | 2020-02-29 09:11 | NUR ---
PHYSICIAN UPDATE- DR. MESSINA HERE-PLANS TO D/C NIMBEX AT 1400 TODAY. WILL DISCUSS PLANS FOR DIALYSIS CATH WITH DR. WAITE. ALBUTEROL ORDERED FOR WHEEZES. DR. NETTLES HERE-UPDATED. TENTATIVE PLAN TO REMOVE GEORGETTE TOMORROW. ALSO COULD PLACE PERMACATH TOMORROW IF NECESSARY
--- NOTE | 2020-02-29 10:45 | NUR ---
ASSUMED CARE AT 0700 PT LAYING IN BED INTUBATED WITH VENT SETTINGS AC 18, TV 480, PEEP 6, FIO2 30%. NIMBEX INFUSING AT 3MCG/KG/MIN. PROPOFOL INFUSING AT 35MCG/KG/MIN. PRECEDEX INFUSING AT 1.4MCG/KG/HR. FENTANYL INFUSING AT 125MCG/HR. CPN INFUSING AT 55ML/HR (GOAL). PT TRAIN 4/. NG TO LIS. J-P DRAIN WITH VERY LITTLE OUTPUT. J-TUBE TO BE FLUSHED Q6HR WITH 30ML WATER. SEAY PATENT AND DRAINING TO GRAVITY. ABD DRESSING, J-P DRESSING, AND J-TUBE DRESSING C/D/I. SEE SHIFT ASSESSMENT FOR FULL ASSESSMENT.
--- NOTE | 2020-02-29 13:39 | NUR ---
PT HYPERTENSIVE, BIZ SCORE HIGH 60'S, TACHY TO 110'S. RX WITH ATIVAN WITH IMPROVEMENT OF BLOOD PRESSURE AND BIZ SCORE 46-47 NOW. TOERATING VENT. PEEP DECREASED TO 5
--- NOTE | 2020-02-29 15:33 | NUR ---
TRANSPORT TO CT PT TOLERATED TRANSPORT TO AND FROM CT WELL. PT BECAME SLIGHTLY TACHYCARDIC WITH HR UP TO 122 BUT WAS ABLE TO COME DOWN TO 110 ONCE BACK IN ROOM.
--- NOTE | 2020-02-29 17:46 | NUR ---
END OF SHIFT SUMMARY PT CONT TO BE INTUBATED WITH VENT SETTINGS AC 18, TV 480, PEEP 5, FIO2 30%. NIMBEX TURNED OFF AT 1400. PROPOFOL INFUSING AT 40MCG/KG/MIN. PRECEDEX INFUSING AT 1.4MCG/KG/HR. FENTANYL INFUSING AT 125MCG/HR. CPN INFUSING AT 55ML/HR (GOAL). SEAY IN PLACE AND DRAINING TO GRAVITY. NG TO LIS. J-P DRAIN DRESSING C/D/I WITH LITTLE OUTPUT THIS SHIFT. J-TUBE DRESSING C/D/I. HR 99. TEMP 99.0. BP 147/94. O2 SAT >95%. WILL REPORT TO PM RN WHEN AVAILABLE.
--- NOTE | 2020-02-29 22:12 | NUR ---
CARE ASSUMED 1900 PT INTUBATED AND SEDATED. VENT SETTINGS OF AC 18/480/5/30%. SEDATED WITH PROPOFOL AT 40 MCG/KG/MIN, PRECEDEX 1.4 MCG/KG/HR, FENTANYL GTT 125 MCG/HR. NATALIIA DRAIN WITH MINIMAL OUTPUT, SEROSANGUINOURS DRAINAGE. J-TUBE TO BE FLUSHED Q6 WITH 30 ML WATER. SUTURED IN PLACE, DRESSING C/D/I. CPN 55 ML/HR, TEMP SEAY IN PLACE. PT EASILY BECAME AGITATED DURING STIMULI. GRIMACE AND MOVES ALL EXTREMS DURING ORAL CARE, SEE EMAR. NOT FOLLOWING ANY COMMANDS.
--- NOTE | 2020-03-01 03:03 | NUR ---
UPDATE PT INTUBATED AND SEDATED. PROPOFOL AT 40 MCG/KG/MIN, FENTANYL AT 200 MCG/HR, PRECEDEX AT 1.4 MCG/KG/HR. PT HAS INCREASED AGITATION/GRIMACING, BLOOD PRESSURE INCREASED TO SBP 190, RR > 30, HR >150 AT TIME, SPO2 87%. PT TREATED WITH HYDRALIZNE AND ATIVAN PER EMAR, MINIMAL EFFECT. DR. MESSINA CALLED AND UPDATED ON PT STATUS. RECIEVED ORDERS TO INCREASED PROPOFOL TO 50 MCG/KG/MIN AND GIVE VERSED 2 MG IV, Q1 PRN, AND LABETALOL 20 MG Q4 IV PRN FOR SBP>200. WILL CONTINUE TO MONITOR.
[2020-03-01 03:53] LABS: BASOPHILS ABSOLUTE AUTO 0.01 K/mm3 (0.00-0.23); BASOPHILS PERCENT AUTO 0 % (0-2); EOSINOPHILS ABSOLUTE AUTO 0.06 K/mm3 (0.00-0.68); EOSINOPHILS PERCENT AUTO 1 % (0-6); Hematocrit 27.1 % (37.0-53.0); Hemoglobin 8.9 g/dL (13.5-17.5); IMMATURE GRAN ABSOLUTE AUTO 0.02 K/mm3 (0.00-0.10); IMMATURE GRAN PERCENT AUTO 0 % (0-1); LYMPHOCYTES ABSOLUTE AUTO 1.09 K/mm3 (0.84-5.20); LYMPHOCYTES PERCENT AUTO 20 % (21-46); MONOCYTES ABSOLUTE AUTO 0.57 K/mm3 (0.16-1.47); MONOCYTES PERCENT AUTO 11 % (4-13); Mean Corpuscular HGB 32.1 pg (26.0-34.0); Mean Corpuscular HGB Conc 32.8 g/dL (31.5-36.5); Mean Corpuscular Volume 98 fL (80-100); Mean Platelet Volume 9.8 fL (9.1-12.4); NEUTROPHILS PERCENT AUTO 67 % (41-73); Platelet Count 167 K/mm3 (150-400); RDW Coefficient Variation 12.7 % (11.7-14.2); RDW Standard Deviation 46.1 fL (35.1-46.3); Red Blood Cell Count 2.77 M/mm3 (4.30-5.90); White Blood Cell Count 5.35 K/mm3 (4.00-11.30)
[2020-03-01 04:12] LABS: Anion Gap 10 mmol/L (6-16); Blood Urea Nitrogen 123 mg/dL (8-24); Bun/Creatinine Ratio 32.4 (12.0-20.0); CO2, Blood 25 mmol/L (21-32); Calcium, Blood 8.7 mg/dL (8.5-10.1); Chloride, Blood 105 mmol/L (98-108); Glomerular Filtration Rate 19 (60-); Glucose, Blood 109 mg/dL (70-99); Magnesium, Blood 1.9 mg/dL (1.6-2.4); Potassium, Blood 3.9 mmol/L (3.5-5.5); Sodium, Blood 140 mmol/L (136-145); Vancomycin, Random 18.3 ug/mL
--- NOTE | 2020-03-01 06:37 | NUR ---
SHIFT SUMMARY PT INTUBATED AND SEDATED. PT CONTINUES TO GRIMANCE DURING STIMULI (ORAL CARE/TURNS) AND MOVES ALL EXTREMS BUT DOES NOT FOLLOW COMMANDS. PROPOFOL AT 50 MCG/KG/MIN, PRECEDEX 1.4 MCG/KG/HR, AND FENTANYL 200 MG/HR. TPN AT GOAL OF 55 ML/HR. AC 18/480/5/40%, SPO2 100%. NATALIIA DRAIN DRESSING C/D/I WITH 10 MLS YELLOW/SEROSANGUINOUS OUT DURING SHIFT. J TUBE FLUSHED 30 MLS Q 6 WITHOUT RESISTANCE. TEMP SEAY IN PLACE, WITH T MAX OF 101.4 WHICH CONTINUES TO DECREASE WITHOUT INTERVENTIONS TO 100.6. PTS BP STABLE AFTER INTERVENTIONS, SEE PREVIOUS NOTE. WILL REPORT TO ONCOMING SHIFT.
--- NOTE | 2020-03-01 08:12 | NUR ---
CARE ASSUMED ASSESSMENTS COMPLETED. TPN 55ML/HR, PT SEDATED WITH PROPOFOL 50, FENTANYL 200, PRECEDEX 1.4. VENT SETTINGS AC 18, Vt 480, PEEP 5, FIO2 30%, PT TOLERATING SETTINGS WELL, NO ASYNCHRONY NOTED AT THIS TIME, LS CLEAR. PT NOT FOLLOWING COMMANDS, OPENS EYES OCCASIOANLLY BUT DOES NOT TRACK, BARRON. SBP 110'S, HR 100 SINUS. TEMP 100.4 PER PROBE, BLANKETS AND SCD'S REMOVED, FAN PLACED. ABD DISTENDED, FIRM, WARM TO TOUCH, BT PRESENT BUT RARE. DRESSINGS CDI, SCANT OUTPUT FROM NATALIIA DRAIN. EXTREMS, ABD, AND SCROTUM REMAIN EDEMATOUS. URINE CLEAR YELLOW, OUTPUT >30ML/HR AT THIS TIME. 'S THO AND RADHA IN TO ASSESS PATEINT, PLAN FOR DIALYSIS CATH PLACEMENT LATER TODAY.
--- NOTE | 2020-03-01 09:38 | NUR ---
UPDATE RE: DIALYSIS CATH DISCUSSED NEED FOR DIALYSIS CATH WITH DR. WAITE, NO NEED AT THIS TIME CREATININE IS IMPROVING AND PT HAS HAD GOOD URINE OUTPUT. DR. NETTLES NOTIFIED.
--- NOTE | 2020-03-01 09:46 | NUR ---
SEDATION VACATION PROPOFOL DECREASED TO 40MCG, PT WOKE UP, OPENED EYES, FOLLOWED SIMPLE COMMANDS, AND ANSWERED YES/NO QUESTIONS APPROPRIATELY. PT COUGHING, ETT SUCTIONED WITH SMALL AMT DOLL SECRETIONS, PT THEN RESEDATED FOR COMFORT.
--- NOTE | 2020-03-01 15:00 | NUR ---
UPDATE VERSED ADMINISTERED FOR COUGHING, THRASHING, HTN, AND TACHYCARDIA, PT CALMED AND IS NOW RESTING QUIETLY, VS IMPROVED. S/O AT BEDSIDE, DR ARREOLA SPEAKING WITH S/O REGARDING PLANS FOR TRACH. S/O REPORTS SHE WILL TALK WITH PT'S MOTHER AND BROTHER BEFORE MAKING A DECISION. VERSED GTT DISCUSSED WITH DR. ARREOLA THIS MORNING, NO NEW ORDERS. WILL CONTINUE VERSED PUSHES PRN PER JUN.
--- NOTE | 2020-03-01 18:34 | NUR ---
END OF SHIFT PT HAD UNEVENTFUL AFTERNOON, VENT SETTINGS UNCHANGED, CONTINUES TO TOLERATE SETTINGS WELL WITH NO ASYNCHRONY. SEDATION DRIPS UNCHANGED. VERSED ADMINISTERED AT THIS TIME FOR SHIVERING AND BP ELEVATION, PT TOLERATES VERSED WELL WITH GOOD RESULTS. LS CLEAR ON L, COARSE IN R UPPER LOBE. SMALL AMOUNT OF WHITE SECRETIONS FROM ETT THIS EVENING. ABD ASSESSMENT REMAINS UNCHANGED, SCANT OUTPUT FROM NATALIIA DRAIN AND OGT. EDEMA TO EXTREMS MAY BE SLIGHTLY IMPROVED FROM THIS MORNING, SCROTUM REMAINS GROSSLY EDEMATOUS. TENTATIVE PLAN FOR TRACH NEXT WEEK DEPENDING ON S/O'S CONVERSATION WITH PT'S FAMILY MEMBERS. REPORT TO ONCOMING SHIFT.
--- NOTE | 2020-03-01 22:17 | NUR ---
CARE ASSUMED 1900 PT INTUBATED AND SEDATED. VENT SETTINGS OF AC 18/480/5/30%, SPO2 > 95%. PROPOFOL AT 50 MCG/KG/MIN, PRECEDEX 1.4 MCG/KG/HR, FENTANYL 200 MCG/HR, AND CPN 55ML/HR, INFUSING VIA PICC LINE TO LEFT UPPER ARM. PT ABLE TO SQUEEZE HANDS BILATERALLY, NOD HEADS NO TO BEING ASKED IF IN PN, EYES OPEN OCCASIONALLY (NOT TRACKING). MOVES ALL EXTREMS SPONTANEOUSLY. DURING CARE/TURNS PATIENTS SBP INCREASED TO 180'S WITH INCREASED AGITATION/GRIMACING AND TREATED PER EMAR WITH VERSED WITH GOOD EFFECT, SBP DECREASED TO 150'S AFTER. NATALIIA DRAIN WITH MINIMAL OUTPUT, TEMP SEAY DRAINING TO GRAVITY, AND NG TUBE TO LIS WITH GREEN DRAINAGE. J-TUBE CLAMPED. MIDLINE DRESSING C/D/I. EXTREMS, ABD, AND SCROTUM ARE EDEMATOUS, ELEVATED USING PILLOWS. WILL CONTINUE TO MONITOR.
--- NOTE | 2020-03-02 04:30 | NUR ---
UPDATE DURING IMAGING PATIENT BECAME AGITATED, PULLING AT RESTRAINTS, COUGHING/NOT TOLERATING VENT/INCREASED PEAK PRESSURE, AND EYES OPEN BUT NOT TRACKING OR FOLLOWING COMMANDS. PTS BP INCREASED TO 177/109, TREATED PER EMAR WITH GOOD EFFECT. TEMP INCREASED TO 100.4, COOL CLOTH APPLIED TO FOREHEAD ALONG WITH A COOL FAN.
[2020-03-02 05:32] LABS: BASOPHILS ABSOLUTE AUTO 0.01 K/mm3 (0.00-0.23); BASOPHILS PERCENT AUTO 0 % (0-2); EOSINOPHILS ABSOLUTE AUTO 0.08 K/mm3 (0.00-0.68); EOSINOPHILS PERCENT AUTO 2 % (0-6); Hematocrit 23.1 % (37.0-53.0); Hemoglobin 7.4 g/dL (13.5-17.5); IMMATURE GRAN ABSOLUTE AUTO 0.01 K/mm3 (0.00-0.10); IMMATURE GRAN PERCENT AUTO 0 % (0-1); LYMPHOCYTES ABSOLUTE AUTO 0.95 K/mm3 (0.84-5.20); LYMPHOCYTES PERCENT AUTO 25 % (21-46); MONOCYTES PERCENT AUTO 13 % (4-13); Mean Corpuscular HGB 32.2 pg (26.0-34.0); Mean Corpuscular Volume 100 fL (80-100); Mean Platelet Volume 9.8 fL (9.1-12.4); NEUTROPHILS ABSOLUTE AUTO 2.27 K/mm3 (1.96-9.15); NEUTROPHILS PERCENT AUTO 59 % (41-73); Platelet Count 174 K/mm3 (150-400); RDW Coefficient Variation 12.8 % (11.7-14.2); RDW Standard Deviation 47.3 fL (35.1-46.3); White Blood Cell Count 3.82 K/mm3 (4.00-11.30)
[2020-03-02 05:41] LABS: Base Excess Venous 0 mmol/L; Bicarbonate Venous 24.4 mmol/L (24.0-30.0); PO2 Venous 152 mmHg (38-42); pH Blood Venous 7.39 (7.34-7.37)
[2020-03-02 05:51] LABS: Anion Gap 9 mmol/L (6-16); Blood Urea Nitrogen 122 mg/dL (8-24); Bun/Creatinine Ratio 36.4 (12.0-20.0); CO2, Blood 25 mmol/L (21-32); Calcium, Blood 8.6 mg/dL (8.5-10.1); Chloride, Blood 108 mmol/L (98-108); Creatinine, Blood 3.35 mg/dL (0.60-1.20); Glomerular Filtration Rate 21 (60-); Glucose, Blood 117 mg/dL (70-99); Magnesium, Blood 1.8 mg/dL (1.6-2.4); Potassium, Blood 3.5 mmol/L (3.5-5.5); Sodium, Blood 142 mmol/L (136-145); Vancomycin, Random 20.8 ug/mL
--- NOTE | 2020-03-02 06:38 | NUR ---
SHIFT SUMMARY PT INTUBATED AND SEDATED. AC 18/480/5/30%. PROPOFOL AT 50 MCG/KG/MIN, PRECEDEX 1.4 MCG/KG/HR, FENTANYL 200 MCG/HR, TPN AT GOAL OF 55ML/HR. PT EASILY AWAKENS DURING STIMULI (TURNS/ORAL CARE, ETC) AND WILL GRIMACE/COUGH/INCREASED PEAK PRESSURES, TREATED PER EMAR USING VERSED WITH GOOD EFFECT. DURING THESE EPISODES PT STARTS TO SHIVER, HAS SBP INCREASE TO 170'S, AND TEMP INCREASES TO 100.4. COMES BACK TO BASELINE AFTER VERSED AND WHEN NO LONGER STIMULATED. FOLLOWS COMMANDS OCCASIONALLY. NATALIIA DRAIN WITH 3 CC'S OF YELLOW LIPID DISCHARGE. J-TUBE FLUSHED Q6. MID-ABD DRESSING C/D/I. PT CONTINUES TO HAVE EDEMA. TEMP SEAY DRAINING TO GRAVITY, URINE OUTPUT OF 1350. WILL REPORT TO ONCOMING SHIFT.
--- NOTE | 2020-03-02 09:35 | NUR ---
CARE ASSUMED ASSESSMENTS COMPLETED. PT AWAKE WITH EYES OPEN, FOLLOWS SIMPLE COMMANDS, TRACKS SOME MOVEMENT, ANSWERS YES AND NO APPROPRIATELY. LS CLEAR, VENT SETTINGS UNCHANGED, RR 20'S, SPO2 >95%, Vt 500. SMALL AMOUNT OUTPUT FROM ETT. BP AND HR ELEVATED WITH AGITATION WHILE AWAKE, MEDICATED FOR COMFORT, VS IMPROVED. HR 90'S SINUS,BP 130/80. ABD APPEARS LESS DISTENDED AND FIRM THAN YESTERDAY, NO HEAT NOTED, BT NOTED IN LOWER QUADRANTS. NATALIIA DRAIN WITH SCANT OUTPUT, MIDLINE ABD DRESSING AND J TUBE DRESSING CDI. SCROTUM, ABD, AND EXTREMS REMAIN EDEMATOUS. GOOD URINE OUTPUT FROM SEAY. PROPOFOL 50MCG, PRECEDEX 1.4MCG, FENTANYL 200MCG, TPN 55ML/HR.
--- NOTE | 2020-03-02 11:47 | NUR ---
UPDATE PT MEDICATED TWICE WITH VERSED WITH SHORT LASTING EFFECTS. RT AT BEDSIDE, VENT CHANGED TO SPONTANEOUS MODE PS 5/5, FIO2 30%. PT MEDICATED WITH LABETOLOL AND ATIVAN FOR AGITATION, HTN, AND TACHYCARDIA, RESPONDED WELL. HR NOW 90'S, SBP 140'S, PT RESTING QUIETLY, REMAINS ON SPONTANEOUS MODE. RR 11, Vt 600'S, SPO2 98%. DR. ARREOLA HAS BEEN IN TO SEE PT, AWARE OF VENT SETTINGS.
--- NOTE | 2020-03-02 19:10 | NUR ---
END OF SHIFT PT CHANGED BACK TO AC SETTINGS AT 1640 D/T LOW TIDAL VOLUMES. AC 18, Vt 480, PEEP 5, FIO2 30%. RR NOW 18, SPO2 >95%, Vt 500'S, LS CTA, SMALL AMT SECRETIONS FROM ETT. PT RESTING QUIETLY WITH EYES CLOSED, NO RESTLESSNESS/AGITATION NOTED, OPENS EYES TO TOUCH, DOES NOT FOLLOW COMMANDS AT THIS TIME AFTER RECENT VERSED. HR 80'S, BP 130/60'S. ABD ASSESSMENT UNCHANGED, SCANT OUTPUT FROM NATALIIA DRAIN, J TUBE FLUSHING WITHOUT DIFFICULTY. LARGE AMOUNT OF OF OGT TODAY, 500ML. DR. TOLLIVER IN TO ASSESS PATIENT THIS EVENING, NO NEW ORDERS. THIS RN INQUIRED ABOUT REMOVING NATALIIA DRAIN AND ABD GEORGETTE, INSTRUCTED TO LEAVE BOTH IN PLACE FOR THE TIME BEING. EDEMA 3+ IN EXTREMS, 1+ IN ABD, GROSS NON PITTING IN GENITALS. GOOD URINE OUTPUT THIS SHIFT. PT'S STEPDAUGHTER IN TO SEE PATIENT, UPDATE GIVEN. PALLIATIVE CARE NURSE TO SPEAK WITH FAMILY TOMORROW REGARDING PLAN OF CARE AND PLANS FOR TRACH TUBE. PROPOFOL 40MCG, FENTANYL 150MCG/HR, PRECEDEX 1.4MCG, CPN 55ML/HR. REPORT TO ONCOMING SHIFT.
--- NOTE | 2020-03-02 22:10 | NUR ---
CARE ASSUMED 1900 PT INTUBATED AND SEDATED. AC 18/480/5/30%, SPO2 98-100%. PROPOFOL AT 40 MCG/KG/MIN, PRECEDEX 1.4 MCG/KG/HR, FENTANYL 150 MCG/HR, AND CPN 55 ML/HR. PT OPENS EYES DURING ORAL CARE AND TURNS BUT DOES NOT TRACK, UNABLE TO FOLLOW COMMANDS AT THIS TIME. PT GRIMACING, MOVING ALL EXTREMS, COUGHING, AND INCREASED SBP TO 170'S, TREATED PER EMAR WITH GOOD EFFECT. TEMP SEAY IN PLACE WITH 300 MLS OF URINE OUTPUT. NATALIIA WITH MINMIAL OUTPUT AND J-TUBE DRESSING C/D/I. MIDLINE DRESSING C/D/I. NG TUBE TO LIS WITH GREEN DISCHARGE. WILL CONTINUE TO MONITOR.
--- NOTE | 2020-03-03 02:18 | NUR ---
UPDATE DURING MIDNIGHT CARE PT BECAME AGITATED. PULLING AT RESTRAINTS, MOVING ALL EXTREMS, COUGHING (PEAK PRESSURE 40), ELEVATED BP AND TEMP, AND SHIVERING. PT ABLE TO FOLLOW COMMANDS, NODS "YES" TO BEING IN PAIN AND "NO" TO BEING COLD. ABLE TO SQUEEZE HANDS, STRONG COOLER MAN STRENGTH BILATERALLY. PT ALSO NODS "YES" TO KNOWING WHERE HE IS. UPDATED PT ON DATE AND THE POSSIBILITY OF HIM HAVING A TRACH. TEARS IN PTS EYES AND STARTS TO COUGH/GRIMACE, TREATED WITH VERSED 2 MG.
[2020-03-03 05:50] LABS: BASOPHILS ABSOLUTE AUTO 0.02 K/mm3 (0.00-0.23); BASOPHILS PERCENT AUTO 1 % (0-2); EOSINOPHILS ABSOLUTE AUTO 0.08 K/mm3 (0.00-0.68); EOSINOPHILS PERCENT AUTO 2 % (0-6); Hematocrit 24.2 % (37.0-53.0); Hemoglobin 7.7 g/dL (13.5-17.5); IMMATURE GRAN ABSOLUTE AUTO 0.03 K/mm3 (0.00-0.10); IMMATURE GRAN PERCENT AUTO 1 % (0-1); LYMPHOCYTES ABSOLUTE AUTO 1.32 K/mm3 (0.84-5.20); LYMPHOCYTES PERCENT AUTO 33 % (21-46); MONOCYTES ABSOLUTE AUTO 0.52 K/mm3 (0.16-1.47); MONOCYTES PERCENT AUTO 13 % (4-13); Mean Corpuscular HGB Conc 31.8 g/dL (31.5-36.5); Mean Corpuscular Volume 100 fL (80-100); Mean Platelet Volume 9.7 fL (9.1-12.4); NEUTROPHILS ABSOLUTE AUTO 2.07 K/mm3 (1.96-9.15); NEUTROPHILS PERCENT AUTO 51 % (41-73); Platelet Count 203 K/mm3 (150-400); RDW Coefficient Variation 12.9 % (11.7-14.2); RDW Standard Deviation 47.4 fL (35.1-46.3); Red Blood Cell Count 2.41 M/mm3 (4.30-5.90); White Blood Cell Count 4.04 K/mm3 (4.00-11.30)
--- NOTE | 2020-03-03 06:04 | NUR ---
SHIFT SUMMARY PT INTUBATED AND SEDATED. AC 18/480/5/30%, SPO2 98-100%. LOUG SOUNDS CORASE WITH SMALL THICK WHITE SECREATIONS. PROPOFOL 40 MCG/KG/MIN, PRECEDEX 1.4 MCG/KG/HR, FENTANYL 150 MCG/HR, CPN AT GOAL OF 55 ML/HR. PT ABLE TO FOLLOW COMMANDS, NODS HEAD YES//NO TO SIMPLE QUESTIONS, ABLE TO STATE WHICH HE IS IN PAIN, AND EASILY AGITATED DURING CARE (COUGHING/INCREASED PEAK PRESSURE), MOVES ALL EXTREMS. NG TUBE WITH GREEN DISCHARGE, 300 MLS TOTAL THIS SHIFT. NATALIIA DISCHARGE OF 3.5 CC'S (YELLOW/LIPID). MIDLINE DRESSING C/D/I. TEMP SEAY IN PLACE (100.6), DRAINING TO GRAVITY. WILL REPORT TO ONCOMING NURSE.
[2020-03-03 06:14] LABS: Anion Gap 8 mmol/L (6-16); Blood Urea Nitrogen 106 mg/dL (8-24); Bun/Creatinine Ratio 36.1 (12.0-20.0); CO2, Blood 27 mmol/L (21-32); Calcium, Blood 8.6 mg/dL (8.5-10.1); Chloride, Blood 109 mmol/L (98-108); Creatinine, Blood 2.94 mg/dL (0.60-1.20); Glomerular Filtration Rate 25 (60-); Glucose, Blood 117 mg/dL (70-99); Potassium, Blood 3.5 mmol/L (3.5-5.5); Sodium, Blood 144 mmol/L (136-145); Vancomycin, Random 13.9 ug/mL
[2020-03-03 08:11] LABS: Magnesium, Blood 1.9 mg/dL (1.6-2.4); Phosphorus, Blood 4.1 mg/dL (2.5-4.9)
--- NOTE | 2020-03-03 10:56 | NUR ---
CARE ASSUMED ASSESSMENTS COMPLETED. VENT SETTINGS UNCHANGED, AC 18, Vt 480, PEEP 5, FIO2 30%, PT TOLERATING VENT SETTINGS WELL, APPEARS COMFORTABLE. PT WAKES EASILY DESPITE SEDATING MEDICATIONS, PROPOFOL 40, PRECEDEX 1.4, FENTANYL GTT 150MCG. PT OPENS EYES, MAKES EYE CONTACT, FOLLOWS SIMPLE DIRECTIONS, DENIES PAIN AT THIS TIME. LS CLEAR, SMALL AMOUNT WHITE SECRETIONS FROM ETT. HR SINUS 80'S, BP STABLE. ABD REMAINS DISTENDED AND SLIGHTLY FIRM BUT BT ARE ACTIVE IN ALL QUADRANTS. NATALIIA, JTUBE, AND MIDLINE ABD DRESSING UNCHANGED, CDI. NO OUTPUT YET THIS SHIFT FROM NATALIIA DRAIN. OGT WITH GREEN OUTPUT. EDEMA PRESENT, SLIGHTLY IMPROVED IN UE'S AND GENITALS, REMAINS 3+ IN ANKLES. PPP. PT BECAME AGITATED AFTER ASSESSMENT, MEDICATED WITH VERSED WITH GOOD RESULTS. PT'S BROTHER CURRENTLY AT BEDSIDE TO VISIT, PLANNING FOR TRACH TUBE PER FAMILY.
--- NOTE | 2020-03-03 12:45 | NUR ---
UPDATE DR. ARREOLA IN TO ASSESS PATIENT AND CHANGE VENT SETTINGS AT 1150 TO SPONT PS 8/5, FIO2 30%. PT TOLERATING WELL, RR 10, VT 500-700, SPO2 99%. PT WAKES EASILY TO VOICE, BROTHER AT BEDSIDE VISITING, PT REMAINS CALM AND RESTING QUIETLY. HR 80'S, BP 130/87. DR. TOLLIVER IN TO ASSESS, NO NEW ORDERS. NO OUTPUT FROM NATALIIA DRAIN. JTUBE FLUSHES WITHOUT DIFFICULTY. DECREASING PROPOFOL AND FENTANYL ABLE PER DR. ARREOLA.
--- NOTE | 2020-03-03 14:49 | NUR ---
UPDATE RT AT BEDSIDE TO RETRACT ETT PER ORDERS.
--- NOTE | 2020-03-03 17:53 | NUR ---
END OF SHIFT PT HAS BEEN ON SPONTANEOUS MODE SINCE LATE THIS MORNING, REMAINS ON SAME SETTINGS PS 8/5, FIO2 30%. SPO2 99%, RR 10-12, Vt 500-800'S WITH OCCASIONAL SHALLOW BREATHS, MAINTAINING MINUTE VOLUMES >6. LS REMAIN CLEAR, VS REMAIN STABLE, BP WELL CONTROLLED TODAY. BT REMAIN ACTIVE, NO OUTPUT FROM JTUBE, OGT OUTPUT DECREASED THIS SHIFT. ABD DRESSINGS CDI. EDEMA REMAINS PRESENT, SEEMS TO BE IMRPOVING SLIGHTLY IN GENITALS AND UE'S. GOOD URINE OUTPUT. PROPOFOL DECREASED TO 35MCG, FENTANYL DECREASED TO 100MCG/HR, PRECEDEX REMAINS 1.4MCG. CPN 55ML/HR. PT REMAINS LIGHTLY SEDATED, OPENS EYES TO VERBAL STIMULI AND TOUCH, FOLLOWS DIRECTIONS AND ANSWERS QUESTIONS, DENIES PAIN. MEDICATED WITH ATIVAN THIS SHIFT FOR DISCOMFORT/AGITATION WITH GOOD RESULTS. ENT CONSULT ORDERED TODAY FOR TRACH PLACEMENT POSSIBLY TOMORROW OR EARLY NEXT WEEK, FAMILY AWARE OF PLAN. REPORT TO ONCOMING SHIFT.
--- NOTE | 2020-03-03 20:03 | NUR ---
PT ET TO VENT SPONTANEOUS 8/5, 30% SPO2 99%. PT SEDATED PROPOFOL 35, PRECEDEX 1.4, FENTANYL 100. PT AWAKENS TO VOICE, ABLE TO ANSWER YES AND NO QUESTIONS, FOLLOWS COMMANDS. LUNG SOUNDS CLEAR. ABD DISTENDED AND FIRM, BOWEL TONES AUSCULTATED IN ALL QUADRANTS. NATALIIA DRAIN TO RUQ INTACT, SCANT AMOUNT OF SEROSANGUINOIUS FLUID. MIDLINE DRESSING INTACT AND DRY. J TUBE TO LLQ INTACT. GENERALIZED EDEMA NOTED TO EXTREMETIES WELL SCROTAL EDEMA. PT APPEARS COMFORTABLE. NO DISTRESS.
[2020-03-04 03:53] LABS: BASOPHILS ABSOLUTE AUTO 0.02 K/mm3 (0.00-0.23); BASOPHILS PERCENT AUTO 0 % (0-2); EOSINOPHILS ABSOLUTE AUTO 0.12 K/mm3 (0.00-0.68); EOSINOPHILS PERCENT AUTO 3 % (0-6); Hematocrit 23.7 % (37.0-53.0); Hemoglobin 7.4 g/dL (13.5-17.5); IMMATURE GRAN ABSOLUTE AUTO 0.02 K/mm3 (0.00-0.10); IMMATURE GRAN PERCENT AUTO 0 % (0-1); LYMPHOCYTES ABSOLUTE AUTO 1.36 K/mm3 (0.84-5.20); LYMPHOCYTES PERCENT AUTO 29 % (21-46); MONOCYTES ABSOLUTE AUTO 0.57 K/mm3 (0.16-1.47); MONOCYTES PERCENT AUTO 12 % (4-13); Mean Corpuscular HGB Conc 31.2 g/dL (31.5-36.5); Mean Corpuscular Volume 103 fL (80-100); Mean Platelet Volume 9.6 fL (9.1-12.4); NEUTROPHILS ABSOLUTE AUTO 2.56 K/mm3 (1.96-9.15); NEUTROPHILS PERCENT AUTO 55 % (41-73); Platelet Count 203 K/mm3 (150-400); RDW Coefficient Variation 12.8 % (11.7-14.2); RDW Standard Deviation 47.3 fL (35.1-46.3); Red Blood Cell Count 2.31 M/mm3 (4.30-5.90); White Blood Cell Count 4.65 K/mm3 (4.00-11.30)
[2020-03-04 04:10] LABS: Anion Gap 6 mmol/L (6-16); Blood Urea Nitrogen 92 mg/dL (8-24); Bun/Creatinine Ratio 35.8 (12.0-20.0); CO2, Blood 29 mmol/L (21-32); Calcium, Blood 8.9 mg/dL (8.5-10.1); Chloride, Blood 113 mmol/L (98-108); Creatinine, Blood 2.57 mg/dL (0.60-1.20); Glomerular Filtration Rate 29 (60-); Glucose, Blood 123 mg/dL (70-99); Magnesium, Blood 2.1 mg/dL (1.6-2.4); Phosphorus, Blood 4.1 mg/dL (2.5-4.9); Potassium, Blood 3.7 mmol/L (3.5-5.5); Sodium, Blood 148 mmol/L (136-145); Vancomycin, Random 16.4 ug/mL
--- NOTE | 2020-03-04 06:40 | NUR ---
SHIFT SUMMARY PT REMAINS ET TO VENT. 11/21, 30%. PT SEDATED PROPOFOL 35, PRECEDEX 1.4, FENTANYL 100. PT RESPONDS TO VOICE, ANSWERS YES AND NO QUESTIONS ON SEDATION. PT OCCASIONALLY AGITITATED AND RECEIVED ATIVAN WITH GOOD EFFECT. NGT DRAINING GREENISH FLUID. LUNG SOUNDS REMAIN CLEAR AND DIMINISHED IN BASES. NATALIIA DRAIN < 5CC DRAINAGE. GENERALIZED EDEMA, LIMBS ELEVATED ON PILLOWS. SEAY CATH DRAINING WELL CLEAR YELLOW URINE.
--- NOTE | 2020-03-04 08:28 | NUR ---
ASSUMED CARE OF PT AT 0700. PT SEDATED ON PROPOFOL AT 35MCG, FENT AT 100MCG/HR, AND PRECEDEX AT 1.4MCG FOR MECH VENT. PT AWKOKE TO LIGHT TOUCH AND VOICE, OPENS EYES TO COMMAND. CHEMICAL TEST ENGINEER HANDS LIGHTLY TO COMMAND, UNABLE TO NOD HEAD TO QUESTIONS. ATIVAN GIVEN SOON AFTER ASSESSMENT FOR STACKING, GAGGING, COUGHING ON VENT. ATIVAN WORKED WELL. DR NETTLES IN TO SEE PT THIS AM. NATALIIA DRAIN REMOVED BY GEORGETTE TO MIDLINE INCISION REMOVED BY MYSELF PER MD ORDERS. GEORGETTE REMOVED W/O DIFF; SITE CLEAR. ORDERS TO START TRICKLE FEEDS AT 10; NOT TO ADVANCE. DR GOODWIN IN THIS AM; PLANS FOR BEDSIDE TRACH AT 1730 TODAY. HEPARIN TO BE HELD. WILL HOLD TRICKLE FEEDS UNTIL AFTER DISCUSED WITH DR RICHARDSON, FOR POSSIBLE PROCEDURE THIS EVENING DR GLORIA AND DR HERNANDEZ IN TO SEE PT THIS AM; FULL UPDATE GIVEN.
--- NOTE | 2020-03-04 09:19 | NUR ---
PT'S MOTHER AT BEDSIDE. DR RICHARDSON IN TO SEE PT; FULL UPDATE GIVEN. TF AND HEPARIN TO BE HELD FOR BEDSIDE TRACH TODAY.
--- NOTE | 2020-03-04 12:56 | NUR ---
PT'S TEMP 101.5; DR RICHARDSON NOTIFIED. URINE AND BLOOD CX TO BE SENT. DR RICHARDSON WILL DO A BAL WITH TRACH.
--- NOTE | 2020-03-04 13:25 | NUR ---
BLOOD CX AND URINE SENT. FAN PLACED ON PT, TEMP DOWN TO 101.1. ATIVAN GIVEN FOR EXCESSIVE COUGHING/GAGGING ON ETT; WITH GOOD EFFECT
[2020-03-04 13:30] LABS: Appearance, Urine Clear (Clear); Bilirubin, Urine Neg (Neg); Blood, Urine 1+ (Neg); Color, Urine Yellow (P-Yellow); Glucose Qualitative, Urine Neg (Neg); Ketones, Urine Neg (Neg); Leukocyte Esterase, Urine Neg (Neg); Nitrite, Urine Neg (Neg); Protein, Urine 1+ (Neg); Source, Urine Catheter; Urobilinogen, Urine NORM (Normal)
[2020-03-04 14:07] LABS: Mucus Mod (0-Heavy)
[2020-03-04 14:08] LABS: Amorphous Light (0-Heavy); Bacteria Few /hpf; Squamous Epithelial Cells Not Seen /hpf (Few); Transitional Epithelial Cells Few /hpf (0-Rare)
--- NOTE | 2020-03-04 18:38 | NUR ---
03/04/201837 Mariama Haro PATIENT TOLERATED TRACH WELL. PACKED TRACH SITE WITH ULTEFOAM DUE TO BLEEDING. REQUIRED APPROX 30 SEC OF BAGGING AFTER INTITAL TRACH PLACEMENT. ALL MEDS GIVEN T/O PROCEDURE BY GENERAL HARDWARE SALESPERSON. SEE EMAR. PROCEDURE DONE IN ICU 4 WITH MULTIPLE (GREATER THAN 5) ICU RNS OBSERVING WELL 3 RT'S.
--- NOTE | 2020-03-04 19:58 | NUR ---
DR GOODWIN AT BEDSIDE FOR PERC TRACH PLACEMENT AT 1700. DR RICHARDSON ALSO AT BEDSIDE. FENT 200MCG, VERSED 5MG, AND VEC 5MG TITRATED DURING PROCEDURE FOR SEDATION PER DR RICHARDSON. PT TOLERATED PROCEDURE WELL. MODERATE AMT OF BLOOD SUCTIONED FROM TRACH AND BACK OF MOUTH AFTER PROCEDURE. PROPOFOL INCREASED TO 90MCG DURING PROCEDURE AND DECREASED DOWN TO 40MCG POST PROCEDURE; AROUND 1800. PT PLACED ON AC SETTING D/T VEC. PT TO REMAIN ON AC SETTING FOR NOW PER DR RICHARDSON. FIO2 TITRATED UP TO 40% POST PROCEDURE. PRECEDEX REMAINS AT 1.4MCG, AND FENT GTT REMAINS AT 100MCG/HR. TRICKLE FEEDS TO START TOMORROW AM PER DR RICHARDSON. HEP TO BE HELD FOR NOW; DR GOODWIN TO OKAY USE AGAIN. MIN DRAINAGE TO MIDLINE INCISION. ~350CC NG OUTPUT TODAY. GASTIC SECRETIONS WITH SCANT AMT OF BLOOD AFTER PROCEDURE. ABD REMAINS SOFT. PT'S MOTHER, S/O, AND BROTHER ALL GIVEN UPDATE ON PT THIS EVENING. SUFFICIANT U/O TODAY; DR WAITE IN TO SEE PT THIS AM, SHE WILL SEE PT ON NEEDED BASIS ONLY NOW THAT HIS KIDNEY FUNCTION HAS IMPROVED.
--- NOTE | 2020-03-04 21:44 | NUR ---
ASSUMPTION OF CARE PT SEDATED, OPENS EYES TO NOXIOUS STIMULI, DOES NOT FOLLOW COMMANDS, WITHDRAWS FROM PAINFUL STIMULI, GRIMACES WITH NURSING CARE, TEARFUL AT TIMES. PT WITH NEW TRACH PLACED EARLIER TODAY, VENT SET TO AC 18/400/5/45%, RR 18-20 WITH COARSE LUNG SOUNDS, BLOODY DRAINAGE FROM TRACH INLINE SUCTION. MONITOR SHOWS SINUS RHYTHM WITH HR 80'S, BP STABLE, HYPERTENSION NOTED, MEDICATIONS AVAILABLE. PT WITH NGT TO LIS, SUCTIONED TURNED OFF FOR MEDICATION ADMINISTRATION, J TUBE TO LLQ CLAMPED, PLAN TO START TUBE FEEDS VIA J TUBE IN THE MORNING. SEAY IN PLACE DRAINING CLEAR YELLOW URINE. ROM TO ALL 4 EXTREMETIES, PT VERY STIFF, MUSCLE SPASMS NOTED DURING ROM. PROPOFOL, PRECEDEX, AND FENTANYL GTT INFUSING PER JEFFREY PICC, SEE FLOWSHEET FOR INFUSION RATES AND TITRATIONS.
--- NOTE | 2020-03-05 01:03 | NUR ---
PT MORE ALERT, FOLLOWING SOME COMMANDS, DENIES PAIN. PROPOFOL TITRATED TO 35mcg/kg/min AND FENTANYL TITRATED TO 90mcg/hr. PT WITH INCREASED AND FREQUENT GRIMACING, FENTANYL TITRATED BACK TO 100mcg/hr.
[2020-03-05 04:08] LABS: BASOPHILS ABSOLUTE AUTO 0.02 K/mm3 (0.00-0.23); BASOPHILS PERCENT AUTO 1 % (0-2); EOSINOPHILS ABSOLUTE AUTO 0.16 K/mm3 (0.00-0.68); EOSINOPHILS PERCENT AUTO 4 % (0-6); Hematocrit 22.8 % (37.0-53.0); Hemoglobin 6.9 g/dL (13.5-17.5); IMMATURE GRAN ABSOLUTE AUTO 0.02 K/mm3 (0.00-0.10); IMMATURE GRAN PERCENT AUTO 1 % (0-1); LYMPHOCYTES ABSOLUTE AUTO 1.55 K/mm3 (0.84-5.20); LYMPHOCYTES PERCENT AUTO 36 % (21-46); MONOCYTES ABSOLUTE AUTO 0.57 K/mm3 (0.16-1.47); MONOCYTES PERCENT AUTO 13 % (4-13); Mean Corpuscular HGB 31.2 pg (26.0-34.0); Mean Corpuscular HGB Conc 30.3 g/dL (31.5-36.5); Mean Corpuscular Volume 103 fL (80-100); Mean Platelet Volume 9.4 fL (9.1-12.4); NEUTROPHILS ABSOLUTE AUTO 1.99 K/mm3 (1.96-9.15); NEUTROPHILS PERCENT AUTO 46 % (41-73); Platelet Count 202 K/mm3 (150-400); RDW Coefficient Variation 12.8 % (11.7-14.2); RDW Standard Deviation 47.8 fL (35.1-46.3); Red Blood Cell Count 2.21 M/mm3 (4.30-5.90); White Blood Cell Count 4.31 K/mm3 (4.00-11.30)
[2020-03-05 04:24] LABS: Anion Gap 6 mmol/L (6-16); Blood Urea Nitrogen 68 mg/dL (8-24); Bun/Creatinine Ratio 34.3 (12.0-20.0); CO2, Blood 28 mmol/L (21-32); Calcium, Blood 9.5 mg/dL (8.5-10.1); Chloride, Blood 117 mmol/L (98-108); Creatinine, Blood 1.98 mg/dL (0.60-1.20); Glomerular Filtration Rate 39 (60-); Glucose, Blood 122 mg/dL (70-99); Magnesium, Blood 2.1 mg/dL (1.6-2.4); Phosphorus, Blood 4.1 mg/dL (2.5-4.9); Potassium, Blood 3.4 mmol/L (3.5-5.5); Sodium, Blood 151 mmol/L (136-145)
[2020-03-05 05:28] LABS: PCO2 Arterial 34.4 mmHg (35-45); PO2 Arterial 87.8 mmHg (80-100); pH Blood Arterial 7.51 (7.35-7.45)
--- NOTE | 2020-03-05 06:37 | NUR ---
SHIFT SUMMARY PT RESTED WELL T/O NIGHT, AROUSES WITH NURSING CARE, FOLLOWS SOME COMMANDS, PROFOUNDLY WEAK T/O. PT DENIES PAIN, BUT DOES GRIMACE WITH NURSING CARE. VENT PER TRACH SET TO 18/480/5/40%, TRACH CONTINUES TO HAVE BLOODY SECRETIONS. MONITOR SHOWS SINUS RHYTHM, HR 80'S-120, HYPERTENSION NOTED, BP STABLE. PT WITH TMAX 100.9, KY TYLENOL ADMINISTERED x1. NO BM THIS SHIFT, TRICKLE TUBE FEEDS PER J TUBE INITATED THIS SHIFT. NGT TO LIS APPROX 450ml OUTPUT. SEAY REMAINS IN PLACE WITH GOOD OUTPUT. PROPOFOL, PRECEDEX AND FENTANYL GTT INFUSING, SEE FLOWSHEET FOR TITRATIONS AND RATES.
--- NOTE | 2020-03-05 08:00 | NUR ---
INITIAL ASSESSMENT PATIENT VENTILATED THROUGH TRACH. PATIENT ON SEDATION BUT ABLE TO FOLLOW SIMPLE COMMANDS. PATIENT CALM AND COOPERATIVE AT THIS TIME BUT HAS PERIODS OF INCREASED ANXIETY. PATIENT WEAK BUT ABLE TO SQUEEZE NURSE HANDS WITH BOTH HANDS. PATIENT ALSO ABLE TO WIGGLE TOES. PAIN BEING MANAGED WITH FENTANYL DRIP. PATIENT HAS TEMP OF 100.7 DEGREES FAHRENHEIT. PATIENT ON VENT SETTINGS OF AC 18, TV 480, PEEP 5, 35% FIO2. LUNGS COARSE IN UPPER LOBES, CLEAR IN LOWER LOBES. MODERATE AMOUNT OF THICK, BLOODY SECRETIONS BEING SUCTIONED FROM TRACH. PATIENT IN SR, HR IN THE 90S. SBP 140S TO 150S. SCDS IN PLACE. ABDOMEN MODERATELY DISTENDED, FIRM, WITH HYPERACTIVE BS NOTED. NG IN PLACE TO LOW INTERMITTENT SUCTION; DRAINING GREEN/ RED FLUID. J-TUBE NOTED AND PIVOT 1.5 INFUSING AT 10 MLS/ HOUR WITH 30 ML WATER FLUSH Q4H. SEAY IN PLACE, DRAINING YELLOW COLORED URINE. BLISTER NOTED TO L ABD AND R HIP. MIDLINE INCISION NOTED TO ABD- DRESSING INTACT. 2+ EDEMA NOTED IN HANDS. 1+ EDEMA NOTED TO FEET AND ANKLES. PROPOFOL INFUSING AT 30 MCG/ KG/ MINUTE, PRECEDEX AT 1.4 MCG/ KG/ HOUR, FENTANYL DRIP AT 100 MCG/ HOUR, CPN AT 55 MLS/ HOUR. BED LOW, CALL LIGHT IN REACH. WILL CONTINUE TO MONITOR PATIENT FREQUENTLY THROUGHOUT SHIFT.
--- NOTE | 2020-03-05 09:00 | NUR ---
DR. RICHARDSON UPDATED ON PATIENT. INFORMED THAT PATIENT HAS POSITIVE BLOOD CULTURE OF GRAM + COCCI IN CLUSTERS. INFORMED THAT PATIENT HAD TMAX OF 100.9 DEGREES FAHRENHEIT DURING [employer]. INFORMED THAT PATIENT HAD 450 MLS OUT LAST NIGHT FROM NG. INFORMED THAT SODIUM 151, HEMOGLOBIN 6.9 AND POTASSIUM 3.4 THIS AM. INFORMED THAT PATIENT HAS NOT HAD BM SINCE 02/27/20.
--- NOTE | 2020-03-05 12:00 | NUR ---
PATIENT SATTING 90% AND GREATER ON SPONTANEOUS PRESSURE SUPPORT OF 10/5 AND 35% FIO2. LUNG SOUNDS COARSE THROUGHOUT. PATIENT IN ST, HR IN THE LOW 100S. SBP IN THE 140S. PATIENT GIVEN LASIX. PATIENT RECEIVING 1 UNIT OF PRBCS.
--- NOTE | 2020-03-05 16:57 | NUR ---
TEMP OF 100.6 DEGREES FAHRENHEIT. FIO2 DECREASED TO 30%. HR IN THE 90S. SBP 140S TO 150S. TRACH CARE PERFORMED.
--- NOTE | 2020-03-05 17:30 | NUR ---
SHIFT SUMMARY PATIENT REMAINED VENTILATED AND ON SEDATION. PATIENT REMAINED RESPONDING TO VERBAL STIMULI AND FOLLOWING SIMPLE COMMANDS. PATIENT MOSTLY CALM AND COOPERATIVE BUT DOES BECOME ANXIOUS AT TIMES. PATIENT REMAINS WEAK. PATIENT REMAINED ON FENTANYL DRIP TO HELP WITH PAIN. PATIENT HAD TMAX OF 101.4 DEGREES FAHRENHEIT. LUNGS REMAINED COARSE THROUGHOUT. PATIENT ON AC 18, TV 480, PEEP 5, 40% TO SPONTANEOUS PRESSURE SUPPORT 10/5, 35% FIO2. MODERATE AMOUNT OF THICK, BLOODY SPUTUM BEING SUCTIONED FROM TRACH. [facility] PERFORMED THIS SHIFT. PATIENT IN SR TO ST, HR 90S TO LOW 100S. SBP 130S TO 150S. NO BM THIS SHIFT. 300 GREEN/ RED OUT FROM NG. TRICKLE FEED REMAINS TO J TUBE. SEAY DRAINED 2705 MLS OF YELLOW COLORED URINE. PROPOFOL REMAINS INFUSING AT 30 MCG/ KG/ MINUTE, PRECEDEX AT 1.4 MCG/ KG/ HOUR, FENTANYL AT 100 MCG/ HOUR, D5W AT 50 MLS/ HOUR, CPN AT 55 MLS/ HOUR. PATIENT RECEIVED 40 MEQ OF KCL FOR POTASSIUM OF 3.4. PATIENT RECEIVED 1 UNIT OF PRBCS FOR HEMOGLOBIN OF 6.9. PATIENT RECEIVED 20 MG LASIX. BED LOW, CALL LIGHT IN REACH. PATIENT APPEARS COMFORTABLE AT THIS TIME. WILL CONTINUE TO MONITOR.
--- NOTE | 2020-03-05 17:47 | NUR ---
Spiritual care note: I met with pt's SO, Tammy, at [facility]. She was pleasantly dismissive of pastoral care.
--- NOTE | 2020-03-05 19:00 | NUR ---
ASSUMED CARE ASSUMED CARE OF PATIENT. CONTINUES WITH MECHANICAL VENTILATION- PS 10, PEEP 5, FIO2 30%. 8.O TRACH. RR 11-14 AT THIS TIME. OCCASIONAL COUGH NOTED- SX MODERATE AMOUNT LIGHT DOLL SECRETIONS WITH BLOOD NOTED. SEDATED WITH PRECEDEX AT 1.4MCG/KG/HR AND PROPOFOL @ 30MCG/KG/MIN. FENTANYL AT 100MCG/HR FOR PAIN CONTROL AND AN ADJUNCT TO SEDATION. OPENS EYES TO VERBAL STIMULI. NODS HEAD YES/NO APPROPRIATELY. FOLLOWS SIMPLE COMMANDS. MONITOR SHOWS NSR, RATE 90s. BP STABLE. NG TO LIS. J-TUBE WITH PIVOT 1.5 AT 10CC/HR PER ORDER. SEAY PATENT AND DRAINING CLEAR YELLOW URINE. SCDs TO BLE. JEFFREY PICC NOTED. D5W INFUSING AT 50CC/HR AND CPN INFUSING @ 55CC/HR PER ORDER. SEE SHIFT ASSESSMENT FOR FULL ASSESSMENT.
--- NOTE | 2020-03-05 20:26 | NUR ---
AGITATION PT WITH INCREASED AGITATION AND RESTLESSNESS. KICKING LEGS AND PULLING AGAINST RESTRAINTS. COUGHING AND GAGGING NOTED. SX'D SMALL AMOUNT FROM TRACH. PROPOFOL INCREASED TO 40MCG/KG/MIN AND MEDICATED WITH ATIVAN 2MG IV.
[2020-03-06 04:43] LABS: BASOPHILS ABSOLUTE AUTO 0.02 K/mm3 (0.00-0.23); BASOPHILS PERCENT AUTO 1 % (0-2); EOSINOPHILS ABSOLUTE AUTO 0.22 K/mm3 (0.00-0.68); EOSINOPHILS PERCENT AUTO 5 % (0-6); Hematocrit 24.7 % (37.0-53.0); Hemoglobin 7.5 g/dL (13.5-17.5); IMMATURE GRAN ABSOLUTE AUTO 0.02 K/mm3 (0.00-0.10); IMMATURE GRAN PERCENT AUTO 1 % (0-1); LYMPHOCYTES PERCENT AUTO 40 % (21-46); MONOCYTES ABSOLUTE AUTO 0.56 K/mm3 (0.16-1.47); MONOCYTES PERCENT AUTO 13 % (4-13); Mean Corpuscular HGB 30.6 pg (26.0-34.0); Mean Corpuscular HGB Conc 30.4 g/dL (31.5-36.5); Mean Corpuscular Volume 101 fL (80-100); Mean Platelet Volume 9.7 fL (9.1-12.4); NEUTROPHILS ABSOLUTE AUTO 1.74 K/mm3 (1.96-9.15); NEUTROPHILS PERCENT AUTO 41 % (41-73); Platelet Count 190 K/mm3 (150-400); RDW Standard Deviation 55.2 fL (35.1-46.3); Red Blood Cell Count 2.45 M/mm3 (4.30-5.90); White Blood Cell Count 4.26 K/mm3 (4.00-11.30)
[2020-03-06 05:00] LABS: Anion Gap 4 mmol/L (6-16); Blood Urea Nitrogen 50 mg/dL (8-24); Bun/Creatinine Ratio 29.6 (12.0-20.0); CO2, Blood 30 mmol/L (21-32); Calcium, Blood 9.2 mg/dL (8.5-10.1); Chloride, Blood 117 mmol/L (98-108); Creatinine, Blood 1.69 mg/dL (0.60-1.20); Glomerular Filtration Rate 47 (60-); Glucose, Blood 120 mg/dL (70-99); Magnesium, Blood 1.9 mg/dL (1.6-2.4); Phosphorus, Blood 4.9 mg/dL (2.5-4.9); Potassium, Blood 3.5 mmol/L (3.5-5.5); Sodium, Blood 151 mmol/L (136-145)
--- NOTE | 2020-03-06 06:01 | NUR ---
SHIFT SUMMARY NO ACUTE CHANGES DURING NOC. CONTINUES ON SPONTANEOUS VENTILATION WITH PS 10, PEEP 5, FIO2 30%. RR 11-20 DURING NOC. SEDATED WITH PROPOFOL 30-50MCG/KG/MIN DURING SHIFT- NOW AT 45MCG/KG/MIN. PRECEDEX INFUSING AT 1.4MCG/KG/HR. FENTANYL GTT AT 100MCG/HR. MEDICATED WITH ATIVAN 2MG IV X 1 DOSE FOR INCREASED AGITATION EARLIER IN SHIFT. OPENS EYES TO VERBAL STIMULI AND OCCASIONALLY SPONTANEOUSLY. MOVES ALL EXTREMITES WEAKLY. FOLLOWS SIMPLE COMMANDS. OCCASIONALLY NODS HEAD YES/NO TO QUESTIONS. BILATERAL SOFT WRIST RESTRAINTS REMAIN IN PLACE. NG TO LIS. J-TUBE WITH PIVOT 1.5 TRICKLE FEED AND 30CC H20 Q4H. SEAY PATENT AND DRAINING CLEAR YELLOW URINE. JEFFREY PICC PATENT. CPN INFUSING AT 55CC/HR PER ORDER. D52 INFUSING AT 50CC/HR PER ORDER. SCDs TO BLE. WILL REPORT TO ONCOMING RN WHEN AVAILABLE.
--- NOTE | 2020-03-06 10:00 | NUR ---
CARE ASSUMED ASSESSMENTS COMPLETED, PT INITIALLY ON VENT AND THEN CHANGED TO T PIECE WITH O2 35% BY RT, TOLERATING WELL WITH Vt 500-600'S, RR 20'S, SPO2 >95%. LS CLEAR, DIM IN BASES, BLOOD TINGED SPUTUM FROM TRACH TUBE. GAUZE DRESSING TO TRACH CDI, NO ACTIVE BLEEDING NOTED. PT SEDATED WITH PROPOFOL, PRECEDEX, AND FENTANYL, SEE FLOW SHEET FOR TITRATIONS. PT WAKES EASILY, FOLLOWS DIRECTION, ANSWERS YES/NO APPROPRIATELY, DENIES PAIN AT THIS TIME. HR SINUS 80'S, BP STABLE. ABD FIRM, DISTENDED, HYPERACTIVE BT, MIDLINE ABD DRESSING D/I WITH SMALL AMOUNT OF DRY SHADOWING. J TUBE TO L ABD WITH TRICKLE FEEDS, PIVOT 1.5 INCREASED TO 20ML/HR PER DR. NETTLES, 30ML FLUSHES Q4H. EDEMA IMPROVING T/O, GOOD URINE OUTPUT VIA SEAY. DR'S IN TO ASSESS, ORDERS RECEIVED. PT MOVED TO CHAIR AT 0930, TOLERATED WELL. REMAINS ON T PIECE O2.
--- NOTE | 2020-03-06 15:15 | NUR ---
UPDATE PT TOLERATED T PIECE FOR AROUND 2 HOURS, PLACED BACK ON VENT BY RT. PRESSURE SUPPORT 5/5, THEN INCREASED TO 10/5 FOR RR 30'S. AT 1445, PT BEGAN HAVING LOW Vt'S AROUND 200-300'S, RT NOTIFIED, PLACED BACK ON AC 18, Vt 450, PEEP 5, FIO2 30%. IS NOW RESTING QUIETLY, BP IMPROVED WITH VENT CHANGES, RR 20, SPO2 >90%. PT REMAINS UP IN CHAIR, DAUGHTER IN TO VISIT, UPDATED. SCANT BLEEDING FROM TRACH INSERTION SITE, SECRETIONS REMAIN BLOOD TINGED, SMALL/MODERATE IN AMOUNT. LS CLEAR. PROPOFOL 40, FENTANYL GTT 50MCG, PRECEDEX 1.4. PT GIVEN ATIVAN EARLIER FOR COUGHING AND DISCOMFORT, IS NOW RESTING QUIETLY, WAKES EASILY AND REMAINS CALM.
[2020-03-06 16:55] LABS: Calcium, Blood 9.3 mg/dL (8.5-10.1); Creatinine, Blood 1.55 mg/dL (0.60-1.20); Potassium, Blood 3.4 mmol/L (3.5-5.5)
--- NOTE | 2020-03-06 19:06 | NUR ---
END OF SHIFT PT REMAINS ON AC 18, Vt 480, PEEP 5, FIO2 30%, TOLERATING WELL, RR 18-22, SPO2 >95%. OCCASIONAL COUGH WITH BLOOD TINGED SPUTUM REMAINS PRESENT, LS CLEAR, DIM IN BASES. HR 80'S SINUS, MEDICATED WITH LABETOLOL X1 THIS EVENING FOR SBP 170'S. ABD UNCHANGED, BT PRESENT, NO BM TODAY. PT REPOSITIONED, LIMBS ELEVATED, PICC DRESSING CHANGED PER PROTOCOL. PRECEDEX 1.4MCG, PROPOFOL 35MCG, FENTANYL 25MCG. GOOD URINE OUTPUT THIS SHIFT. REPORT TO ONCOMING SHIFT.
[2020-03-07 04:43] LABS: BASOPHILS ABSOLUTE AUTO 0.03 K/mm3 (0.00-0.23); BASOPHILS PERCENT AUTO 1 % (0-2); EOSINOPHILS ABSOLUTE AUTO 0.23 K/mm3 (0.00-0.68); EOSINOPHILS PERCENT AUTO 4 % (0-6); Hematocrit 26.3 % (37.0-53.0); Hemoglobin 8.2 g/dL (13.5-17.5); IMMATURE GRAN ABSOLUTE AUTO 0.01 K/mm3 (0.00-0.10); IMMATURE GRAN PERCENT AUTO 0 % (0-1); LYMPHOCYTES ABSOLUTE AUTO 2.11 K/mm3 (0.84-5.20); LYMPHOCYTES PERCENT AUTO 40 % (21-46); MONOCYTES ABSOLUTE AUTO 0.57 K/mm3 (0.16-1.47); MONOCYTES PERCENT AUTO 11 % (4-13); Mean Corpuscular HGB 30.9 pg (26.0-34.0); Mean Corpuscular HGB Conc 31.2 g/dL (31.5-36.5); Mean Corpuscular Volume 99 fL (80-100); Mean Platelet Volume 9.7 fL (9.1-12.4); NEUTROPHILS PERCENT AUTO 44 % (41-73); Platelet Count 194 K/mm3 (150-400); RDW Coefficient Variation 14.3 % (11.7-14.2); RDW Standard Deviation 52.2 fL (35.1-46.3); Red Blood Cell Count 2.65 M/mm3 (4.30-5.90); White Blood Cell Count 5.25 K/mm3 (4.00-11.30)
[2020-03-07 05:00] LABS: Anion Gap 8 mmol/L (6-16); Blood Urea Nitrogen 44 mg/dL (8-24); Bun/Creatinine Ratio 28.4 (12.0-20.0); CO2, Blood 28 mmol/L (21-32); Calcium, Blood 8.7 mg/dL (8.5-10.1); Chloride, Blood 113 mmol/L (98-108); Creatinine, Blood 1.55 mg/dL (0.60-1.20); Glomerular Filtration Rate 52 (60-); Glucose, Blood 124 mg/dL (70-99); Potassium, Blood 3.3 mmol/L (3.5-5.5); Sodium, Blood 149 mmol/L (136-145); Vancomycin, Random 13.3 ug/mL
--- NOTE | 2020-03-07 06:05 | NUR ---
SHIFT SUMMARY NO ACUTE CHANGES THIS SHIFT, PT REMAINS AROUSABLE TO VERBAL STIMULI, NOT FOLLOWING COMMANDS. VENT PER TRACH SET TO AC 118/480/5/30%, MONITOR SHOWS SINUS RHYTHM WIHT HR 80'S-90'S, PT HYPERTENSIVE WITH SBP 160'S-170'S, PRN LABETALOL ADMINISTERED WITH LITTLE EFFECT, NOTIFIED DR MESSINA, NEW ORDER FOR ADDITIONAL DOSE OF LABETALOL. NO BM THIS SHIFT, BT HYPERACTIVE, TF INFUSING @ 20mls/hr. SEAY IN PLACE WITH GOOD URINE OUTPUT.
--- NOTE | 2020-03-07 08:12 | NUR ---
CARE ASSUMED ASSESSMENTS COMPLETED, NO MAJOR CHANGES NOTED SINCE YESTERDAY. FENTANYL GTT 35MCG, PROPOFOL 35MCG, PRECEDEX 1.4MCG, CPN 55ML/HR. ABX AND POTASSIUM INFUSING PER ORDERS. BT HYPERACTIVE IN ALL QUADRANTS, PIVOT 1.5 25ML/HR VIA J TUBE, GREEN OUTPUT FROM NGT. ABD FEELS MORE FIRM AND DISTENDED TODAY THAN YESTERDAY. VENT SETTINGS AC 18, Vt 480, PEEP 5, FIO2 30%. RR 20'S, Vt 500'S, SPO2 96%. LS COARSE ON R, RED STREAKED SECRETIONS FROM TRACH TUBE. DRAIN SPONGE DRESSING TO TRACH CHANGED FOR SMALL AMOUNT OF DRIED RED DRAINAGE. DR. GLORIA IN TO ASSESS, NOTIFIED OF HYPERTENSION T/O NOC. DR. NETTLES IN, STATES HE WILL ORDER DULCOLAX SUPPOSITORY. DR. HERNANDEZ IN, NO NEW ORDERS.
[2020-03-07 10:22] LABS: Triglycerides 329 mg/dL (30-160)
--- NOTE | 2020-03-07 19:14 | NUR ---
END OF SHIFT PT HAD A GOOD DAY TODAY, WAS WEANED OFF OF PROPOFOL THIS MORNING AND HAS BEEN RESTING QUIETLY, WATCHING TV, ANSWERING APPROPRIATELY SINCE. USING PICTURE BOARD FOR COMMUNICATION. PT CALM AND COOPERATIVE WITH CARE, FOLLOWS DIRECTIONS. PRECEDEX REMAINS AT 1.4MCG, FENTANYL GTT AT 25MCG/HR. PT HAD 3 BM'S THIS SHIFT, PIVOT 1.5 INCREASED TO 30ML/HR VIA J TUBE PER DR. NETTLES, TPN DC'D, CLINIMIX INFUSING AT 25ML/HR. LS CLEAR, VSS, ABD SOFTER AND LESS DISTENDED AFTER BM'S, BT REMAIN HYPERACTIVE. 300ML FROM NGT, GREEN THIN LIQUID. VENT SPONTANEOUS SINCE THIS AFTERNOON, PS 10/5, FIO2 30%, PT TOLERATING WELL WITH OCCASIONAL TRACH SUCTIONING REQUIRED, SECRETIONS REMAIN BLOOD TINGED. MAINTAINING SPO2 >95% AND Vt >400, RR 18-26. EDEMA IMPROVING T/O, LASIX TODAY PER ORDERS, GOOD URINE OUTPUT. TEMP 98-101 TODAY, DECREASED WITH FAN AND REMOVAL OF BLANKETS/SCDS. ATTENDS ON, SCDS IN PLACE, ABD DRESSINGS REMAIN CDI. REPORT TO ONCOMING SHIFT.
--- NOTE | 2020-03-07 22:00 | NUR ---
ASSUMPTION OF CARE PT AWAKE IN BED, ORIENTED TO SELF, SURROUNDINGS AND FOLLOWING DIRECTIONS, USING PICTURE BOARD AND MOUTHING WORDS TO COMMUNICATE. PT ON VENTILATOR PER TRACH, VENT SET TO PS 4/10 FIO2 30%, TITAL VOLUMES 500-600. MONITOR SHOWS SINUS RHYTHM, SBP 150'S-160'S. NGT TO LIS, CLAMPED FOR MED ADMINISTRATION. TF PER J TUBE @ 30ml/hr WITH 200ml FLUSH Q4H. SEAY IN PLACE WITH GOOD OUTPUT. PRECEDEX AND FENTANYL GTT'S INFUSING FOR COMFORT AND PAIN MANAGEMENT.
[2020-03-08 04:37] LABS: BASOPHILS ABSOLUTE AUTO 0.02 K/mm3 (0.00-0.23); BASOPHILS PERCENT AUTO 0 % (0-2); EOSINOPHILS ABSOLUTE AUTO 0.15 K/mm3 (0.00-0.68); EOSINOPHILS PERCENT AUTO 3 % (0-6); Hematocrit 24.9 % (37.0-53.0); Hemoglobin 7.8 g/dL (13.5-17.5); IMMATURE GRAN ABSOLUTE AUTO 0.02 K/mm3 (0.00-0.10); IMMATURE GRAN PERCENT AUTO 0 % (0-1); LYMPHOCYTES ABSOLUTE AUTO 2.05 K/mm3 (0.84-5.20); LYMPHOCYTES PERCENT AUTO 35 % (21-46); MONOCYTES ABSOLUTE AUTO 0.61 K/mm3 (0.16-1.47); MONOCYTES PERCENT AUTO 11 % (4-13); Mean Corpuscular HGB 30.8 pg (26.0-34.0); Mean Corpuscular HGB Conc 31.3 g/dL (31.5-36.5); Mean Corpuscular Volume 98 fL (80-100); Mean Platelet Volume 9.4 fL (9.1-12.4); NEUTROPHILS ABSOLUTE AUTO 2.98 K/mm3 (1.96-9.15); NEUTROPHILS PERCENT AUTO 51 % (41-73); Platelet Count 181 K/mm3 (150-400); RDW Coefficient Variation 13.6 % (11.7-14.2); RDW Standard Deviation 49.1 fL (35.1-46.3); Red Blood Cell Count 2.53 M/mm3 (4.30-5.90); White Blood Cell Count 5.83 K/mm3 (4.00-11.30)
[2020-03-08 05:04] LABS: Bun/Creatinine Ratio 27.3 (12.0-20.0); Calcium, Blood 8.7 mg/dL (8.5-10.1); Creatinine, Blood 1.39 mg/dL (0.60-1.20); Magnesium, Blood 1.7 mg/dL (1.6-2.4); Phosphorus, Blood 4.5 mg/dL (2.5-4.9); Potassium, Blood 3.1 mmol/L (3.5-5.5)
--- NOTE | 2020-03-08 06:16 | NUR ---
SHIFT SUMMARY NO ACUTE CHANGES THIS SHIFT, PT AWAKE FOR MOST OF SHIFT, PRECEDEX REMAINS INFUSING @ 1.4, ATTEMPTED TITRATING PRECEDEX DOWN AND MEDICATING WITH ATIVAN FOR ANXIETY, PT WITH INCREASED RESPIRATORY RATE AND PRECEDEX TITRATED BACK TO 1.4. PT DENIES PAIN, FENTANYL GTT INF @ 25mcg/hr. PT CONTINUES TO USE PICTURE BOARD TO COMMUNICATE, MAKES FREQUENT REQUESTS FOR WATER, EXPLAINED NPO STATUS, MOIST SPONGES PROVIDED. PT TOLERATED VENT SET TO PS 10/5 FIO2 30% T/O NIGHT. MONITOR SHOWS SINUS RHYTHM, SBP 150'S-160'S. TF INF @ 30ml/hr PER J TUBE. NGT CONTINUES TO HAVE SIGNIFICANT OUTPUT, 300ml THIS SHIFT. PT REMAINS IN SOFT WRIST RESTRAINTS R/T WEAKNESS AND POOR COORDINATION PT IS HIGH RISK FOR ACCIDENTAL PULLING OF PERCUTANEOUS TRACH. OVERALL PT IS CALM AND COOPERATIVE. MORNING LABS SHOWED LOW POTASSIUM, 40meq KCL IV ORDERED PER ELECTROLYTE PROTOCOL.
--- NOTE | 2020-03-08 11:30 | NUR ---
PT CHANGED TO REGULATORY LAW SPECIALIST FENTANYL. WASTED 158ML OF FENTANYL FROM PREVIOUS BAG WITH ERWIN RN AND ALEENA RN WITNESS.
--- NOTE | 2020-03-08 12:36 | NUR ---
ASSUMED CARE AT 0700 PT AWAKE AND ON THE VENT WITH SETTINGS PS 10, TV 480, PEEP 5, FIO2 30. PT IS ABLE TO COMMUNICATE WITH US VIA PICTURE BOARD, MOUTHING WORDS, AND POINTING. PRECEDEX INCUSING AT 1.4MCG/KG/HR. FENTANYL INFUSING AT 25MCG/HR. CPN INFUSING AT 25ML/HR. PIVOT INFUSING THROUGH J-TUBE AT 30ML/HR WITH 200ML WATER FLUSHES Q4HR. NG TO LIS AND CLAMPED AFTER MEDS. SEAY IN PLACE AND DRAINING TO GRAVITY. SEE SHIFT ASSESSMENT FOR FULL ASSESSMENT.
--- NOTE | 2020-03-08 18:22 | NUR ---
END OF SHIFT SUMMARY PT CONT TO BE ON VENT VIA TRACH WITH SETTINGS PS 8, PEEP 5, Vt 480, FIO2 30. PT ABLE TO COMMUNICATE WITH PICTURE BOARD, MOUTHING WORDS, AND POINTING. FENTANYL FRONT END WHEEL LOADER OPERATOR STARTED WITH CONT 25MCG/HR WITH 25MG FRONT END WHEEL LOADER OPERATOR PUSH PRN Q1HR, PT NODS THAT FRONT END WHEEL LOADER OPERATOR IS HELPING WITH PAIN. PRECEDEX TITRATED DOWN TO 1MCG/KG/HR. NG TO LIS. PIVOT INFUSING VIA J-TUBE AT 30ML/HR WITH 200ML WATER FLUSHES Q4HR. CPN INFUSING AT 25ML/HR. PT/OT ABLE TO GET PT UP TO CHAIR. SEAY PATENT AND DRAINING TO GRAVITY. MAX TEMP 100. HR 80-90'S. RR 16-24. SBP 130-160. WILL REPORT TO PM RN WHEN AVAILABLE.
--- NOTE | 2020-03-08 19:30 | NUR ---
ASSUMED PT CARE REPORT FROM LUIS A RAO AT 1910, ASSUMED PT CARE. PT ALERT AND ORIENTED. NON VERBAL DUE TO NEW TRACH PLACED 03/04. PT ON VENT PS 8, PEEP 5 30% FIO2, SATS >92%. LUNG SOUNDS COARSE, PT HAS STRONG COUGH, SMALL AMOUNT OF SECRETIONS. PICC LINE TO JEFFREY WITH PRECEDEX INF AT 0.9MCG/KG/HR, CLINIMIX INF AT 25ML/HR, NS INF AT 10ML/HR AND FENTANYL PRESCHOOL TEACHER ASSISTANT AT 25MCG/HR. SITE WNL. PT ALSO HAS 20G TO R AC, WNL. PT ABLE TO MOVE ALL EXTREMITIES INDEPENDENTLY IN BED, WEAK. PULSES WNL. SEAY DRAINING YELLOW URINE, NG TO LEFT NARE TO LIS. J TUBE TO LEFT ABD WITH PIVOT 1.5 INF AT 30ML/HR. ABD SOFT, TENDER, DRESSING TO MIDLINE, C/D/I. CALL LIGHT IN REACH. PT USES PEN AND PAPER AND COMMUNICATION BOARD TO MAKE NEEDS KNOWN. PT ABLE TO USE CALL LIGHT. WHEN ASKED IF FENTANYL MANAGES PAIN PT MOUTHS "SORT OF". BOWEL TONES ACTIVE. SKIN OTHERWISE INTACT. SEE FULL SHIFT ASSESSMENT
[2020-03-09 04:21] LABS: BASOPHILS ABSOLUTE AUTO 0.02 K/mm3 (0.00-0.23); BASOPHILS PERCENT AUTO 0 % (0-2); EOSINOPHILS ABSOLUTE AUTO 0.13 K/mm3 (0.00-0.68); EOSINOPHILS PERCENT AUTO 2 % (0-6); Hematocrit 25.1 % (37.0-53.0); Hemoglobin 7.8 g/dL (13.5-17.5); IMMATURE GRAN ABSOLUTE AUTO 0.02 K/mm3 (0.00-0.10); IMMATURE GRAN PERCENT AUTO 0 % (0-1); LYMPHOCYTES ABSOLUTE AUTO 1.69 K/mm3 (0.84-5.20); LYMPHOCYTES PERCENT AUTO 31 % (21-46); MONOCYTES ABSOLUTE AUTO 0.59 K/mm3 (0.16-1.47); MONOCYTES PERCENT AUTO 11 % (4-13); Mean Corpuscular HGB 31.1 pg (26.0-34.0); Mean Corpuscular HGB Conc 31.1 g/dL (31.5-36.5); Mean Corpuscular Volume 100 fL (80-100); Mean Platelet Volume 9.9 fL (9.1-12.4); NEUTROPHILS ABSOLUTE AUTO 3.09 K/mm3 (1.96-9.15); NEUTROPHILS PERCENT AUTO 56 % (41-73); Platelet Count 224 K/mm3 (150-400); RDW Coefficient Variation 13.2 % (11.7-14.2); RDW Standard Deviation 47.7 fL (35.1-46.3); Red Blood Cell Count 2.51 M/mm3 (4.30-5.90); White Blood Cell Count 5.54 K/mm3 (4.00-11.30)
[2020-03-09 04:42] LABS: Anion Gap 7 mmol/L (6-16); Blood Urea Nitrogen 34 mg/dL (8-24); Bun/Creatinine Ratio 29.6 (12.0-20.0); CO2, Blood 26 mmol/L (21-32); Calcium, Blood 8.3 mg/dL (8.5-10.1); Chloride, Blood 111 mmol/L (98-108); Creatinine, Blood 1.15 mg/dL (0.60-1.20); Glomerular Filtration Rate >60 (60-); Glucose, Blood 127 mg/dL (70-99); Potassium, Blood 3.2 mmol/L (3.5-5.5); Sodium, Blood 144 mmol/L (136-145)
--- NOTE | 2020-03-09 06:27 | NUR ---
SHIFT SUMMARY PT HAD UNEVENTFUL SHIFT. REMAINS ALERT AND ORIENTED. USES CALL LIGHT TO ALERT STAFF OF NEEDS. COMMUNICATES WITH BOARD AND WRITING. PT HAS TRACH (PLACED 03/04) WNL, PT ON PS VENT 11/21/30%, TOLERATING WELL, SATS >92%. PT LUNG SOUNDS COARSE AT TIMES. SECRETIONS MINIMAL. PT HAS GOOD COUGH. PT HAS NG TO LEFT NARE TO LIS, PT C/O CONSTANTLY ABOUT IT. CLAMPED AFTER POLLUTION CONTROL ENGINEER. PT HAS JTUBE TO LEFT ABD WITH PIVOT INFUSING AT 30ML/HR. [place] WELL. PT HAD ONE EPISODE OF NAUSEA THIS AM, ZOFRAN GIVEN. PT HAS PICC LINE TO JEFFREY WITH CLINIMIX INF AT 25ML/HR, PRECEDEX INF AT 0.9MCG/KG/HR, FENTANYL INF AT 25MCG/HR, NS INF AT 10ML/HR. PT HAS SL 20G TO RIGHT AC, FLUSHES WELL, DRESSING INTACT. PT HAS TEMP PROBE TO RECTUM, FEBRILE 100.4 DURING SHIFT, TYLENOL GIVEN. PT HAS SEAY DRAINING DARK YELLOW URINE. HR SR 80S. BP STABLE. PT DID NOT SLEEP. CONCERNED ABOUT "COURT DATE TO SEE PARCEL POST WEIGHER" PT GETS FRUSTRATED WHEN TRYING COMMUNICATE. CALL LIGHT REMAINS IN REACH. WILL REPORT TO ONCOMING SHIFT.
--- NOTE | 2020-03-09 16:44 | NUR ---
TUBE FEED INCREASE PIVOT FEED INCREASED TO 40ML/HR WITH 200ML WATER FLUSHES Q4HR.
--- NOTE | 2020-03-09 19:48 | NUR ---
END OF SHIFT SUMMARY PT LAYING IN BED USING PICTURE BOARD, MOUTHING WORDS, AND USING PEN/PAPER TO COMMUICATE. 02 SAT > 94% DURING TRACH COLLAR TRIAL AND CONT TO BE OFF OF VENT. NSR WITH HR 80-90'S. BP STABLE. 3 LOOSE STOOLS THIS SHIFT. SEAY PATENT AND DRAINING TO GRAVITY. TUBE FEED VIA J-TUBE AT 40ML/HR WITH 200ML WATER FLUSHES Q4HR. CLINAMIX TURNED OFF. ABD DRESSING CHANGED THIS SHIFT. PT HAD ONE EPISODE OF EMISIS AND NAUSEA, PRN ANTINAUSEA MED GIVEN. NG TO LIS. PRECEDEX INFUSING AT 0.6MCG/KG/HR. FENTANYL INFUSING AT 25MCG/HR. REPORT GIVEN TO PM RN.
--- NOTE | 2020-03-09 20:00 | NUR ---
ASSUMED PT CARE BEDSIDE REPORT WITH LUIS A RAO AT 1915, ASSUMED PT CARE. PT ALERT AND ORIENTED. USES PEN/PAPER AND PICTURE BOARD TO COMMUNICATE MOST NEEDS, GETS FRUSTRATED AT TIMES. PT HAS TL PICC TO JEFFREY WITH PRECEDEX INF @ 0.6MCG/KG/HR, NS INF @ 10ML/HR, FENTANYL INF @ 25MCG/HR GOLF CLUB MANAGER. DRESSING C/D/I. PT HAS 20G TO RIGHT AC, SL, DRESSING C/D/I. PT HAS NG TO LEFT NARE TO LIS, GREEN DRAINAGE NOTED. PT HAS JTUBE TO LEFT ABD WITH PIVOT INF @ 40ML/HR WITH 200ML H20 FLUSH Q4HRS. PT TOLERATING FEEDS. PT HAS TRACH, ON TRACH COLLAR TRIAL STILL AT 30%FIO2, SATS >92%, PT TOLERATING WELL. BP WNL. PT HR SR IN 80S. PT AFEBRILE. CALL LIGHT IN REACH. SEE FULL SHIFT ASSESSMENT.
[2020-03-10 03:50] LABS: BASOPHILS ABSOLUTE AUTO 0.02 K/mm3 (0.00-0.23); BASOPHILS PERCENT AUTO 0 % (0-2); EOSINOPHILS ABSOLUTE AUTO 0.14 K/mm3 (0.00-0.68); EOSINOPHILS PERCENT AUTO 3 % (0-6); Hematocrit 25.2 % (37.0-53.0); Hemoglobin 7.7 g/dL (13.5-17.5); IMMATURE GRAN ABSOLUTE AUTO 0.02 K/mm3 (0.00-0.10); IMMATURE GRAN PERCENT AUTO 0 % (0-1); LYMPHOCYTES ABSOLUTE AUTO 1.95 K/mm3 (0.84-5.20); LYMPHOCYTES PERCENT AUTO 37 % (21-46); MONOCYTES ABSOLUTE AUTO 0.66 K/mm3 (0.16-1.47); MONOCYTES PERCENT AUTO 12 % (4-13); Mean Corpuscular HGB 30.3 pg (26.0-34.0); Mean Corpuscular HGB Conc 30.6 g/dL (31.5-36.5); Mean Corpuscular Volume 99 fL (80-100); Mean Platelet Volume 9.5 fL (9.1-12.4); NEUTROPHILS ABSOLUTE AUTO 2.53 K/mm3 (1.96-9.15); NEUTROPHILS PERCENT AUTO 48 % (41-73); Platelet Count 259 K/mm3 (150-400); RDW Coefficient Variation 13.2 % (11.7-14.2); RDW Standard Deviation 47.1 fL (35.1-46.3); Red Blood Cell Count 2.54 M/mm3 (4.30-5.90); White Blood Cell Count 5.32 K/mm3 (4.00-11.30)
[2020-03-10 04:16] LABS: Anion Gap 6 mmol/L (6-16); Blood Urea Nitrogen 28 mg/dL (8-24); Bun/Creatinine Ratio 25.7 (12.0-20.0); CO2, Blood 26 mmol/L (21-32); Calcium, Blood 8.1 mg/dL (8.5-10.1); Chloride, Blood 112 mmol/L (98-108); Creatinine, Blood 1.09 mg/dL (0.60-1.20); Glomerular Filtration Rate >60 (60-); Glucose, Blood 108 mg/dL (70-99); Magnesium, Blood 1.9 mg/dL (1.6-2.4); Potassium, Blood 3.6 mmol/L (3.5-5.5); Sodium, Blood 144 mmol/L (136-145)
--- NOTE | 2020-03-10 06:30 | NUR ---
SHIFT SUMMARY PT HAD DECENT EVENING. PRECEDEX OFF AT THIS TIME. PT TOLERATING PRN ATIVAN FOR ANXIETY. PT BACK ON TRACH COLLAR AT 30%FIO2. FENTANYL FUR POLISHER INF @ 25MCG/HR. TL PICC TO JEFFREY, DRESSING INTACT. PULSES EQUAL AND STRONG. PT LUNG SOUNDS CONTINUE TO BE COARSE. PT HAS GREAT PRODUCTIVE COUGH. SATS >92%. BP STABLE. HR ST 109. NG TUBE TO LEFT NARE TO LIS, GREENISH/YELLOW DRAINAGE. PT HAS J TUBE TO LEFT ABD WITH PIVOT INF AT 40ML/HR WITH 200ML H20 FLUSH Q4. SEAY DRAINING DARK YELLOW URINE. PT LESS COMMUNICATIVE THIS AM. PT ALERT AND ORIENTED. ABD SOFT AND SOMEWHAT TENDER. DRESSINGS TO ABD INTACT. CALL LIGHT IN REACH. WILL REPORT TO ONCOMING SHIFT.
--- NOTE | 2020-03-10 11:45 | NUR ---
PT RESTING IN BED NOW. THIS AM PT WAS ABLE TO USE BEDPAN FOR BM. STILL INCONTINENT OF STOOL THOUGH. ABLE TO GET PT TO RECLINER THIS AM WITH 2 PERSON ASSIST AND GAIT BELT. IT WAS DIFFICULT FOR PT HIS LEGS ARE WEAK. AFTER PT WAS SITTING IN CHAIR FOR 10-15 MINUTES HE WAS FOUND SLID DOWN ON THE FLOOR. HE WAS STRONG ENOUGH TO LOWER RECLINER WITH LEGS AND SLIDE TO THE FLOOR. PT WAS LIFTED WITH CEILING LIFT BACK TO BED. PT WAS SMILING AND DID NOT APPEAR IN DISTRESS. LET DR. RICHARDSON KNOW WELL. WILL BE CALLING TO LET HER KNOW. STOOL HAS BEEN LOOSE/LIQUID. UNABLE TO GET RECTAL TUBE IN. SCROTUM IS GETTING IRRITATED FROM FREQUENT BM. PT TOOK NGT OUT THIS AM. PER DR. RICHARDSON A BEDSIDE SWALLOW WAS DONE AND PT PASSED. WAS ABLE TO SWALLOW ONE PILL THEN DID NOT WANT TO TRY ANY MORE. WAS ABLE TO GIVE IV LABETOLOL INSTEAD OF PO. PT IS NOW ON TRACH COLLAR AT 26%. PT WILL REMOVE TRACH COLLAR AT TIMES BUT SPO2 MAINTAINS ABOVE 90%. STRONG PRODUCTIVE COUGH. SUCTIONING TRACH PRN.
[2020-03-10 17:19] LABS: PCO2 Venous 36 mmHg (38-42); PO2 Venous 37 mmHg (38-42); pH Blood Venous 7.47 (7.34-7.37)
[2020-03-10 17:20] LABS: Base Excess Venous 2.5 mmol/L; Bicarbonate Venous 26.2 mmol/L (24.0-30.0)
--- NOTE | 2020-03-10 18:44 | NUR ---
SUMMARY PT SITTING UP IN BED. HAS BEEN ABLE TO MOUTH WORDS, WRITE, OR USE COMMUNICATION BOARD TO MAKE NEEDS KNOWN. AFFECT IS FLAT AND GETS FRUSTRATED WHEN STAFF HAS DIFFICULTY UNDERSTANDING HIM. PT GOT UP TO CHAIR WITH 2 PERSON ASSIST WITH GAIT BELT. LEGS ARE VERY WEAK. HAD TO USE THE LIFT TO GET HIM BACK TO BED. PT IS ABLE TO HELP TURN SELF IN BED. HAVE BEEN ENCOURAGING PT TO DO MUCH FOR HIMSELF POSSIBLE. WAS TAKEN OFF OF FENTANYL GTT THIS AFTERNOON AND HAS BEEN DOING FINE WITHOUT IT. WAS ABLE TO PASS BEDSIDE SWALLOW EVAL AND EVEN TOOK PILLS WHOLE WITH WATER. SPO2 REMAINS ABOVE 90%. PT WILL TAKE TRACH COLLAR OFF AT TIMES BUT STILL HOLDS SPO2 GREATER THAN 90%. TUBE FEED WAS INCREASED TO 55ML/HR THIS AFTERNOON AND IS TOLERATING WELL. STILL HAVING LIQUID STOOL AND DIETARY SAYS THEY MIGHT ADDRESS SOME FOMULA CHANGES OR ADDING BANATROL TOMORROW. NO SIGN OF DISTRESS.
--- NOTE | 2020-03-10 20:00 | NUR ---
ASSUMED CARE OF PT, REPORT RCV'D FROM JALEN CABRERA. PT ALERT AND ORIENTED SITTING UP IN BED. TRACH COLLAR IN PLACE, HEATED AEROSOL 6L, 26%. PT HAS OCCASIONAL PRODUCTIVE COUGH, NEEDS SUCTIONING OFTEN. PT PULLING ON TRACH COLLAR AND TRYING TO REMOVED PICC DRESSING. PT PLACED IN BILATERAL SOFT RESTRAINTS TO PRESERVE VITAL LINES AND PREVENT UNSAFE AMBULATION. PIVOT 1.5 RUNNING INTO JTUBE AT 55ML/HR GOAL RATE. SEAY PATENT AND DRAINING TO GRAVITY. SEE FULL SHIFT ASSESSMENT
--- NOTE | 2020-03-11 02:27 | NUR ---
PT CONTINUES TO BE AGITATED. PT REMOVED BILATERAL SOFT WRIST RESTRAINTS AND WAS ATTEMPTING TO PULL TRACH OUT WELL PICC AND WAS ATTEMPTING TO GET OUT OF BED. PT WANTS TO LEAVE AMA, PT ENCOURAGED TO STAY OVERNIGHT AND SPEAK WITH DOCTOR IN MORNING TO MAKE PLANS FOR DISCHARGE. PT REQUESTING TO "SMOKE" AND WANTS A "DRINK". PT PLACED IN 4 POINT SOFT RESTRAINTS. BED ALARM REMAINS ON. BED IN LOW LOCKED POSITION, CALL LIGHT IN HAND.
[2020-03-11 03:27] LABS: BASOPHILS ABSOLUTE AUTO 0.03 K/mm3 (0.00-0.23); BASOPHILS PERCENT AUTO 1 % (0-2); EOSINOPHILS ABSOLUTE AUTO 0.13 K/mm3 (0.00-0.68); EOSINOPHILS PERCENT AUTO 2 % (0-6); Hemoglobin 8.3 g/dL (13.5-17.5); IMMATURE GRAN ABSOLUTE AUTO 0.01 K/mm3 (0.00-0.10); IMMATURE GRAN PERCENT AUTO 0 % (0-1); LYMPHOCYTES ABSOLUTE AUTO 2.04 K/mm3 (0.84-5.20); LYMPHOCYTES PERCENT AUTO 35 % (21-46); MONOCYTES ABSOLUTE AUTO 0.85 K/mm3 (0.16-1.47); MONOCYTES PERCENT AUTO 15 % (4-13); Mean Corpuscular HGB Conc 31.9 g/dL (31.5-36.5); Mean Corpuscular Volume 97 fL (80-100); Mean Platelet Volume 9.3 fL (9.1-12.4); NEUTROPHILS ABSOLUTE AUTO 2.71 K/mm3 (1.96-9.15); NEUTROPHILS PERCENT AUTO 47 % (41-73); Platelet Count 297 K/mm3 (150-400); RDW Coefficient Variation 13.1 % (11.7-14.2); RDW Standard Deviation 46.5 fL (35.1-46.3); Red Blood Cell Count 2.68 M/mm3 (4.30-5.90); White Blood Cell Count 5.77 K/mm3 (4.00-11.30)
[2020-03-11 03:42] LABS: Anion Gap 5 mmol/L (6-16); Blood Urea Nitrogen 22 mg/dL (8-24); CO2, Blood 28 mmol/L (21-32); Calcium, Blood 8.3 mg/dL (8.5-10.1); Chloride, Blood 112 mmol/L (98-108); Creatinine, Blood 1.05 mg/dL (0.60-1.20); Glomerular Filtration Rate >60 (60-); Glucose, Blood 124 mg/dL (70-99); Sodium, Blood 145 mmol/L (136-145)
--- NOTE | 2020-03-11 06:04 | NUR ---
SHIFT SUMMARY PT REMAINS IN 4 POINT SOFT RESTRAINTS. PT AGITATED, ANGRY AND WITHDRAWN. PT REFUSES REPOSITIONING WELL SOME MEDICATIONS. PT TREATED FOR PAIN AND ANXIETY PER EMAR, WHEN ASKED IF EITHER MEDICATION HELPED ALLEVIATE HIS PAIN OR ANXIETY PT JUST SHRUGGED. PT OCCASIONALLY ASKS FOR PEN/PAPER TO COMMUNICATE. PT REQUESTING TO BE DISCHARGED FROM HOSPITAL IMMEDIATELY. WHEN HAND UNRESTRAINED PT PULLS AT TRACH AND PICC LINE AND ATTEMPTS TO GET OUT OF BED. PT HAS STRONG COUGH AND IS ABLE TO BRING UP SMALL AMOUNT OF SPUTUM. PT SUCTIONED NEEDED. WILL REPORT TO DAYSHIFT NURSE.
--- NOTE | 2020-03-11 07:00 | NUR ---
REPORT TAKEN FROM JALEN WRIGHT. ASSUMED PT CARE @ 0700. PT W/ TRACH IN PLACE. COLLAR W/ HUMIDIFIED RA. PT W/ STRONG COUGH, WHITE SPUTUM, OCCASIONAL SUCTION NEEDED. LS COARSE THROUGHOUT. O2 SATS MID 90s. PT W/ STRONG SWALLOW REFLEX. ABLE TO FOLLOW COMMANDS, RESTRAINTS IN PLACE AT THIS TIME D/T PT PULLING @ LINES & TUBES. WILL REASSESS TODAY. SEAY IN PLACE & DRAINING TO GRAVITY W/ CLEAR/YELLOW OUTPUT. SINUS TACH. WILL MEDICATE FOR AGITATION & MONITOR FOR IMPROVEMENT.
--- NOTE | 2020-03-11 17:25 | NUR ---
SHIFT SUMMARY: TRACH IN PLACE, HUMIDIFIED COLLAR ON RA. O2 SATS MID 90s. LS CONTINUE TO BE COARSE. PT REMAINS MILDLY TACHYCARDIC @ 115-110bpm. BP ELEVATED @ TIMES, DEC TO WNL AFTER GIVEN PO MEDS. DAWOOD TORRES'D THIS SHIFT PER GERMAN. PT UP CHAIR FOR SEVERAL HRS THIS SHIFT, TOLERATED WELL. ABLE TO REMOVE RESTRAINTS. PT COOPERATIVE; BECOMING MILDLY IRRITABLE & IMPULSIVE OVER THE LAST HOUR. DISCUSSED W/ PT NEED TO STAY TO INC STRENGTH, PT AGREEABLE AT THIS TIME. BACK TO BED W/ LIFT. WILL CONTINUE TO MONITOR UNTIL REPORT OFF TO ONCOMING RN.
--- NOTE | 2020-03-11 19:55 | NUR ---
ASSUMED CARE PT AWAKE AND ALERT, TRACH TO ROOM AIR BLOW BY. SHAKES HEAD YES AND NO TO QUESTIONS, ATTEMPTS TO MOUTH WORDS. PT GIVEN EZ PICTURE BOARD BUT IS UNABLE TO MAKE NEEDS KNOWN THROUGH BOARD. PT ATTEMPTING TO SPEAK TO PEOPLE WHEN NO ONE IN ROOM. SUCTIONING LARGE AMOUNTS OF THICK WHITE SPUTUM. J TUBE INTACT, FEEDING INFUSING. PT HAS ATTEMPTED MULTIPLE TIMES TO GET OOB. EXPLAINED TO PT NEED FOR STAYING IN BED DUE TO HIS WEAKNESS, PT AGREES AND ATTEMPTS TO GET OOB.
--- NOTE | 2020-03-12 00:51 | NUR ---
PT NOW MORE RELAXED, LESS TACHYPNEA, APPEARS LESS AGITATED. PT REFUSES TO USE URINAL, ATTEMPTED TO PLACE URINAL, PT REFUSES.
[2020-03-12 03:19] LABS: Hematocrit 27.3 % (37.0-53.0); Hemoglobin 8.7 g/dL (13.5-17.5); Mean Corpuscular HGB 30.9 pg (26.0-34.0); Mean Corpuscular HGB Conc 31.9 g/dL (31.5-36.5); Mean Corpuscular Volume 97 fL (80-100); Mean Platelet Volume 9.1 fL (9.1-12.4); Platelet Count 307 K/mm3 (150-400); RDW Coefficient Variation 12.9 % (11.7-14.2); Red Blood Cell Count 2.82 M/mm3 (4.30-5.90); White Blood Cell Count 6.07 K/mm3 (4.00-11.30)
[2020-03-12 03:36] LABS: Magnesium, Blood 1.7 mg/dL (1.6-2.4)
[2020-03-12 03:37] LABS: Anion Gap 7 mmol/L (6-16); Blood Urea Nitrogen 22 mg/dL (8-24); Bun/Creatinine Ratio 21.6 (12.0-20.0); CO2, Blood 24 mmol/L (21-32); Calcium, Blood 8.3 mg/dL (8.5-10.1); Chloride, Blood 113 mmol/L (98-108); Creatinine, Blood 1.02 mg/dL (0.60-1.20); Glomerular Filtration Rate >60 (60-); Glucose, Blood 127 mg/dL (70-99); Phosphorus, Blood 2.8 mg/dL (2.5-4.9); Potassium, Blood 3.2 mmol/L (3.5-5.5); Sodium, Blood 144 mmol/L (136-145)
[2020-03-12 03:44] LABS: BAND PERCENT MAN 3 % (0-8); BASOPHILS ABSOLUTE MAN 0.06 K/mm3 (0.00-0.23); BASOPHILS PERCENT MAN 1 % (0-2); EOSINOPHILS ABSOLUTE MAN 0.18 K/mm3 (0.00-0.68); EOSINOPHILS PERCENT MAN 3 % (0-6); LYMPHOCYTES ABSOLUTE MAN 2.54 K/mm3 (0.84-5.20); LYMPHOCYTES PERCENT MAN 42 % (21-46); MONOCYTES ABSOLUTE MAN 0.54 K/mm3 (0.16-1.47); MONOCYTES PERCENT MAN 9 % (4-13); NEUTROPHILS ABSOLUTE MAN 2.73 K/mm3 (1.96-9.15); SEG NEUTROPHILS PERCENT MAN 42 % (41-73); TOTAL CELLS COUNTED 100
--- NOTE | 2020-03-12 05:33 | NUR ---
PT REMAINS TRACH TO T PIECE ROOM AIR. FREQUENT SUCTIONING OF THICK WHITE SPUTUM. PT. ABLE TO EXPECTORATE BUT CANNOT CLEAR T PIECE. MIDLINE DRESSING REMAINS INTACT. J TUBE INTACT INFUSING FEEDING AT GOAL. PT ENCOURAGED TO USE URINAL AT BEDSIDE AND ATTEMPTED TO PLACE URINAL FOR PT, HE REFUSES MOST OF THE TIME. HAS BEEN INCONTINENT OF URINE AND STOOL 3 TIMES. PT ASSITED WITH REPOSITIONING Q2. ATIVAN GIVEN FOR AGITATION AND RESTLESSNESS, PT. APPEARS LESS AGITATED.
--- NOTE | 2020-03-12 16:00 | NUR ---
REASSESSMENT PT RESTLESS AT TIMES, CONTINUES TO HAVE LOOSE/LIQUID INCONTINENT BM'S. DR NETTLES CAME TO BEDSIDE REMOVED ABD SURGICAL SITE DRESSING, INCISION IS APPROXIMATED AND HEALING WELL. ABD BINDER PLACED PER DR RAMSEY REQUEST FOR PROTECTION OF J TUBE, DOES NOT NEED TO BE ON TIGHT. PT REMAINS ON ROOM AIR, PLACED COLLAR BY RT AND PT HAS BEEN TOLERATING WELL. PT WAS CHANGED TO PCU STATUS THIS MORNING.
--- NOTE | 2020-03-12 18:30 | NUR ---
pt arrived to pcu 10 from icu via bed, report from Melissa, got pt settled in bed, call light in reach. will report off to night RN.
--- NOTE | 2020-03-12 18:32 | NUR ---
SHIFT SUMMARY PT IS ALERT, FOLLOWS COMMANDS, ANXIOUS AT TIMES. PIVOT TUBE FEEDS CONTINUE TO INFUSE AT GOAL RATE IN J TUBE. PT CONTINUES TO HAVE LOOSE/LIQUID STOOL. THIS AFTERNOON PT WAS PLACED ON TRACH COLLAR THIS AFTERNOON AND HAS BEEN TOLERATING WELL. ABD BINDER PLACED AND PT DOES PULL AT IT AND NEEDS REMINDING TO LEAVE IT IN PLACE. PT REMAINS IN SINUS TACH ON THE MONITOR. VITALS HAVE BEEN STABLE. PT WAS TRANSFERRED TO PCU ROOM 10 AT 1815. TRANSFER OF CARE REPORT GIVEN TO JALEN KERN. BELONGINGS WERE GATHERED AND TRANSFERRED WITH PT.
--- NOTE | 2020-03-13 07:49 | NUR ---
SHIFT SUMMARY PT IS NONVERBAL, COMMUNICATED BY POINTING AND LIP READING, PT ATTEMPTED TO WRITS ON PAPER BUT WAS NOT LEGIBLE. VITALS WERE STABLE T/O THE NIGHT, BP WAS UP FROM 119 TO 130 SYSTOLIC, HR LOW 100'S BECOMING 120'S WITH MOVING AND COUGHING. O2 SATS WERE STEADY IN THE 90'S, PT HAD A PRODUCTIVE COUGH THAT REQUIRED SOME SUCTIONING WITH MINIMAL MUCUS. J TUBE RAN AT 55ML/HR WITH Q4H FLUSHES WITHOUT PROBLEM. PT COMMUNICATED THAT HE WAS HAVING SOME DISCOMFORT IN HIS ABD, GAVE PRN PAIN MEDICATION AND PT WAS ABLE TO SLEEP. PT WAS ABLE TO SWALLOW PILLS. PT HAD AN OTHERWISE UNEVENTFUL NIGHT, WILL CONTINUE TO MONITOR UNTIL SHIFT CHANGE.
--- NOTE | 2020-03-13 18:35 | NUR ---
PT SUMMARY: NO ACUTE CHANGE FOR THE SHIFT, PT IS STRICTLY NPO AT THIS TIME PER ST, BARIUM SWALLOW SCHEDULED ON WEDNESDAY. PT HAD A HARD TIME THIS MORNING WITH PO MEDS PT C/O BURNING PAIN ON THE THROAT WHEN SWALLOWING, REQUESTED ICE POP FOR COMFORT. PT ALSO GETTING FRUSTRATED NOT BEING ABLE TO COMMUNICATE NEEDS WELL. PT HAD A FALL 5 MINUTES BEFORE END OF SHIFT, PT WAS FOUND ON THE FLOOR ON HIS BOTTOM NEXT TO THE CHAIR, PT IS NON VERBAL BUT WHEN ASKED IF HE'S TRYING TO GO SOMEWHERE PT PUT HIS HAND UP WITH A SMOKING SIGN (WANTED TO GO OUT FOR SMOKE), PT WAS INSTRUCTED HE'S NOT ALLOWED TO SMOKE WHILE HE'S IN THE UNIT, ALSO REMINDED TO USE HIS CALL LIGHT FOR HELP. PT DIDNT HIT HIS HEAD THERE'S A RED MAE ON THE RIGHT SIDE OF HIS TRUNK POSSIBLY SCRATCH FROM THE ARM REST OF THE CHAIR NEXT TO HIM WHEN HE FELL, DENIES ANY PAIN, PT WAS PUT BACK TO BED VIA CEILING LIFT. PT NOW BACK IN BED BED ALARM ON FOR SAFETY BED IN LOWEST POSITION. PROVIDER AND MADE AWARE, NO NEW ORDERS AT THIS TIME, REPORT GIVEN TO NOC SHIFT NURSE
--- NOTE | 2020-03-14 00:33 | NUR ---
PT UPDATE PT HAS ATTEMPTED SEVERAL TIMES TO GET OUT OF BED. PT STATES HE WANTS TO GO SMOKE AND GO TO "FABIO[employer] HOUSE, MY BROTHER", PT STATES. HELPED PT TO RECLINER WITH 3 STAFF AND WALKER. CHAIR ALARM NOTIFIED OF PT GETTING OUT OF RECLINER. PT THEN WANTED TO GO BACK TO BED. 3 STAFF HELPED PT BACK TO BED. PT AGITATED.
[2020-03-14 03:59] LABS: BASOPHILS ABSOLUTE AUTO 0.03 K/mm3 (0.00-0.23); BASOPHILS PERCENT AUTO 1 % (0-2); EOSINOPHILS ABSOLUTE AUTO 0.11 K/mm3 (0.00-0.68); EOSINOPHILS PERCENT AUTO 3 % (0-6); Hematocrit 33.6 % (37.0-53.0); Hemoglobin 10.5 g/dL (13.5-17.5); IMMATURE GRAN ABSOLUTE AUTO 0.01 K/mm3 (0.00-0.10); IMMATURE GRAN PERCENT AUTO 0 % (0-1); LYMPHOCYTES ABSOLUTE AUTO 1.63 K/mm3 (0.84-5.20); LYMPHOCYTES PERCENT AUTO 40 % (21-46); MONOCYTES ABSOLUTE AUTO 0.72 K/mm3 (0.16-1.47); MONOCYTES PERCENT AUTO 18 % (4-13); Mean Corpuscular HGB 31.4 pg (26.0-34.0); Mean Corpuscular HGB Conc 31.3 g/dL (31.5-36.5); Mean Corpuscular Volume 101 fL (80-100); Mean Platelet Volume 9.3 fL (9.1-12.4); NEUTROPHILS ABSOLUTE AUTO 1.59 K/mm3 (1.96-9.15); NEUTROPHILS PERCENT AUTO 39 % (41-73); Platelet Count 252 K/mm3 (150-400); RDW Coefficient Variation 13.3 % (11.7-14.2); RDW Standard Deviation 48.7 fL (35.1-46.3); Red Blood Cell Count 3.34 M/mm3 (4.30-5.90); White Blood Cell Count 4.09 K/mm3 (4.00-11.30)
[2020-03-14 04:15] LABS: Anion Gap 6 mmol/L (6-16); Blood Urea Nitrogen 27 mg/dL (8-24); Bun/Creatinine Ratio 25.2 (12.0-20.0); CO2, Blood 23 mmol/L (21-32); Calcium, Blood 8.3 mg/dL (8.5-10.1); Chloride, Blood 114 mmol/L (98-108); Creatinine, Blood 1.07 mg/dL (0.60-1.20); Glomerular Filtration Rate >60 (60-); Glucose, Blood 123 mg/dL (70-99); Potassium, Blood 3.8 mmol/L (3.5-5.5); Sodium, Blood 143 mmol/L (136-145)
--- NOTE | 2020-03-14 06:26 | NUR ---
SHIFT SUMMARY PT ALERT, ORIENTED TO SELF, UNABLE TO ASSESS FURTHER ORIENTATION. PT NON VERBAL WITH TRACH, USED POINTER BOARD MINIMALLY. WRITING DIFFICULT TO READ. SP02>92% W/ TRACH, PLACED 03/04. TRACH CARE PERFORMED BY RN AND RESPIRATORY THERAPIST. TELEMETRY READS SINUS TACH, 90'S-100'S. PT JTUBE INFUSING AT 55MLS/HR T/O NIGHT. MINIMAL RESIDUAL. PT ATTEMPTED MULTIPLE TIMES T/O NIGHT TO GET OUT OF BED/CHAIR TO "GO SMOKE" OR GO "TO [facility]". MULTIPLE BED ALARMS/CHAIR ALARMS WENT OFF T/O THE NIGHT. STAFF IN ROOM CONSISTENTLY TO REDIRECT BACK TO BED/CHAIR FOR SAFETY. AT APPROX 0600 PT ATTEMPTED TO GET OUT OF CHAIR AND KNEELED. PT HELPED TO BED AND CHIQUI VEST PUT ON FOR PT SAFETY. AT APPROX 0615, PT UNTIED QUICK RELEASE OF ONE SIDE OF CHIQUI VEST AND ATTEMPTED TO GET OUT OF BED. IN THIS PROCESS, PT REMOVED EXTERNAL TUBING OF CONTINUOUS FEEDING. 4 STAFF IN ROOM TO CLEAN UP PT FROM FEEDING MESS/CHANGE LINENS. PT RAISED FIST AT ONE RN, GESTURED FOR STAFF TO NOT COME CLOSE. SECURITY CALLED. ONCE SECURITY PRESENT IN ROOM, PT LET STAFF CHANGE CLOTHES AND LINENS. CHIQUI VEST IN PLACE. CALL LIGHT IN REACH. WILL CONTINUE TO MONITOR.
--- NOTE | 2020-03-14 18:36 | NUR ---
PT SUMMARY: PT HAS BEEN AGITATED ALL THROUGH OUT THE SHIFT, COMBATIVE AT TIMES ATTEMPTED TO KICK THIS RN AND WAS PUTTING UP HIS FIST LIKE HE WAS ABOUT TO HIT, FLIPPED HIS MIDDLE FINGER ON THIS RN AFTER OFFERING HIM SOME OTHER ACTIVITIES LIKE BOOKS OR COLORING STUFFS, PT HAS BEEN ON CHIQUI VEST ALL SHIFT PT CAME UNREDIRECTABLE BY THE END OF SHIFT PULLED HIS J TUBE, HEART MONITOR AND HEATED HUMIDIFIER OFF WAS PICKING ON HIS PICC LINE WELL. SOFT WRIST RESTRAINT APPLIED BY THE END OF SHIFT VERBAL ORDER FROM THIS AM FROM DR GLORIA IF PT NEEDS IT, SECURITY WAS CALLED FOR BACK UP. PT WAS GIVEN A BED BATH THIS MORNING OFFERED AND TRANSFERRED MULTIPLE TIMES TO THE RECLINER CHAIR, MEDICATED WITH ATIVAN, FENTANYL AND ZYPREXA NOTHING SEEMS TO BE EFFECTIVE AT THIS POINT. PT IS NOW SETTLED BACK DOWN IN BED CHIQUI VEST AND SOFT BILATERAL WRIST RESTRAINT ON, BED ALARM ON, BED IN LOWEST POSITION, CONTINUOUS FOOD RUNNING AT 55 MLS/HR 250MLS FLUSHES Q 4 HRS. CALL LIGHTS IN REACH WILL REPORT TO ONCOMING SHIFT.
--- NOTE | 2020-03-14 20:00 | NUR ---
BP PT REFUSED TO LET THIS RN TAKE HIS VITALS AT START OF SHIFT. TOLD THIS RN TO LEAVE ROOM.
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
--- NOTE | 2020-03-15 07:42 | NUR ---
Received report from NOC RN. Patient laying in bed self positioning and awake. He is in [place] and bilateral soft wrist restraints for pulling at liones and tubes and try to get out of bed. He has PICC line to JEFFREY dressing intact and site WNL's and is flushed and SL'd. He communicates with lip reading or communication board and works pretty well. He has trach collar with 11L air bleed in and sats 95%. He MAEW but weak.
--- NOTE | 2020-03-15 09:30 | NUR ---
patient up out of bed to chair with one assist. He went to swallow eval and did well and new soft diet. When back went to chair. [place] still reamains but bilateral soft wrist removed around 0830 and he just needs re-direction not to pull at lines. Remaisn on trach collar RA 11L Bleed. Resident and Dr Madrigal both by and med status and no tele. he still remaisn confused of routine but re-orients well.
--- NOTE | 2020-03-15 11:30 | NUR ---
Patient has been back to bed and re-appied trach collar after getting back to bed and sats >90%. He is starting new soft diet and tolerating small amoit with no problems. VSS, See EMR. He has been very cooperative with his care. No significant changes with patien and his care.
--- NOTE | 2020-03-15 13:30 | NUR ---
Patient received bath and tolerated well. Family came by and brought diet liquids and ice flavoring. Dr Flores by and tallked with patient possible surgry on bilateral LE's on Wednesday. VSS, See EMR. He is on continued LIS through right nares NG.
--- NOTE | 2020-03-15 13:30 | NUR ---
Patient went back to chair and sats up and ate 30% of lunch with assistance. trach care done again. Picc line dressing changed and remains 4cm out and positive blood return post dressing change. patient has been appropriate and communicating with pen and paper and has us try to read lips.
--- NOTE | 2020-03-15 15:38 | NUR ---
Family by and sat with him for a short period. he has had trach collar off for about an hour and sats >90%. He remains a 1 person transfer from chair to bed and back. No other significant changes with patient.
--- NOTE | 2020-03-15 18:17 | NUR ---
Patient awoke from sleep and encouraged to use TRAPEZE PERFORMER. No changes in suction output. 1/2 NS at 100 ml/hr continues. Repositioned up in bed. patient positions bed for comfort. I & O done.
--- NOTE | 2020-03-16 06:16 | NUR ---
END OF SHIFT SUMMARY NO ACUTE CHANGES THIS SHIFT. VSS. TRACH CLEANED, COLLAR WORKING WELL TO MAINTAIN SPO2 >94%. W/OUT COLLAR AND HUMIDIFIED AIR, SPO2 CONTINUES >94%. PT AXO. VERY PLEASANT AND COOPERATIVE THIS SHIFT. PT TAKEN OUT OF CHIQUI VEST AT 0600. PT NO LONGER TRYING TO GET OOB AND AGREES TO USE CALL LIGHT FOR HELP AND TO LEAVE IV, LINES, TELE ALONE. PEG TUBE REMAINS INTACT, FLUSHED Q4HRS WITH 250MLS. PT TOLERATING PO INTAKE WELL. PT SUCTIONED VIA TRACH TWICE TONIGHT WITH GOOD RESULTS. PICC REMAINS PATENT. BED ALARM IN PLACE. WILL CONTINUE TO MONITOR UNTIL SHIFT CHANGE.
[2020-03-16 06:29] LABS: Anion Gap 8 mmol/L (6-16); Blood Urea Nitrogen 21 mg/dL (8-24); Bun/Creatinine Ratio 19.8 (12.0-20.0); CO2, Blood 24 mmol/L (21-32); Calcium, Blood 9.1 mg/dL (8.5-10.1); Chloride, Blood 109 mmol/L (98-108); Creatinine, Blood 1.06 mg/dL (0.60-1.20); Glomerular Filtration Rate >60 (60-); Glucose, Blood 103 mg/dL (70-99); Potassium, Blood 3.8 mmol/L (3.5-5.5); Sodium, Blood 141 mmol/L (136-145)
--- NOTE | 2020-03-16 07:26 | NUR ---
ASSUMED CARE: PT RESTING QUIETLY IN BED, BED ALARM ON. CHIQUI OFF AT THIS TIME. NO ACUTE NEEDS OR CONCERNS.
--- NOTE | 2020-03-16 13:00 | NUR ---
PHYSICAL THERAPY WORKED WITH PT AND AMBULATED HIM AROUND THE UNIT WITH ONE ASSIST. STATES THAT HE CHANGED HIS RECOMMENDATIONS FOR THERAPY TO HOME HEALTH. CONVERSED WITH THERAPIST ABOUT THIS THAT PT HAS NEW TRACH AND MAY STILL NEED [facility] IF OUT PT SERVICES ARE UNAVAILABLE TO ASSIST WITH EDUCATION FOR THIS.
--- NOTE | 2020-03-16 17:43 | NUR ---
SHIFT SUMMARY: PT WORKED WITH PHYSICAL THERAPY AND TOLERATED WELL. HE AND S.O. HAD SEVERAL QUESTIONS ABOUT DC PLAN WHICH WERE DEFERRED UNTIL WEDNESDAY SO THAT DC PLANNING CAN DISCUSS AND DETERMINE FURTHER. PT OCCASIONALLY USES TRACH COLLAR BUT ALSO TOLERATES ROOM AIR. NO FURTHER NEEDS OR CONCERNS AT THIS TIME.
--- NOTE | 2020-03-17 03:27 | NUR ---
EVENT NOTE PT PUSHES CALL LIGHT, UPON ARRIVAL TO THE DOORWAY SIGNIFICANT WHEEZES HEARD AND PT IS SITTING UP ON THE SIDE OF THE BED, APPEARS DISTRESSED. DIAPHORETIC AND PALE, REACHING AT CHEST AND TRACH AREA. SHAKES HEAD "YES" WHEN ASKED IF HE'S HAVING TROUBLE BREATHING. SATS 98%, LUNG SOUNDS TIGHT THROUGHOUT. DEEP SUCTION VIA TRACH WITH MINIMAL WHITE SPUTUM. CALLED ENDY RT TO ROOM, ADMINISTERED BREATHING TREATMENT AND REPLACED INNER CANNULA. SMALL DARK BROWN RESIDUE WITHIN CANNULA, PT IS MORE RELAXED AND RESPIRATORY EFFORT REDUCED AFTER CANNULA CHANGED. PT USES HAND TO MOTION "SO-SO" WHEN ASKED IF HE FEELS BETTER. PROVIDED UPDATE TO PRIMARY RN ARACELI WHO WILL CONTINUE TO MONITOR CLOSELY FOR CHANGES IN RESPIRATORY STATUS.
--- NOTE | 2020-03-17 05:04 | NUR ---
END OF SHIFT SUMMARY NO ACUTE CHANGES THIS SHIFT. VSS. PT AXO. AMBULATED AROUND UNIT THIS SHIFT WITH FWW. HAD ONE INSTANCE OF SEVERE RESPIRATORY DISTRESS, REQUIRED DEEP SUCTION AND RT TREATMENT AND RECOVERED BACK TO UNLABORED BREATHING WITHIN 15MINUTES. PT WAS NOTICEABLY ANXIOUS ABOUT THIS BUT CALMED DOWN AND HAS BEEN RESTING SINCE. THOROUGH TRACH CARE COMPLETED AFTER THIS EVENT. OTHERWISE, PT RESTING IN ROOM. TRACH COLLAR WITH HUMIDIFIED AIR ATTACHED TO TRACH. WILL CONTINUE TO MONIOT RUNTIL SHIFT CHANGE.
--- NOTE | 2020-03-17 07:30 | NUR ---
ASSUMED CARE: PT RESTING IN BED AT THIS TIME. RESIDENT AT BEDSIDE AND RT WORKING WITH PT. NO ACUTE NEEDS OR CONCERNS AT THIS TIME.
--- NOTE | 2020-03-17 18:24 | NUR ---
SHIFT SUMMARY: PT SITTING UPRIGHT IN RECLINER. VISITED WITH DAUGHTER THIS SHIFT. HAS BEEN COOPERATIVE, MEDICATED FOR PAIN X1. PLAN IS FOR DC PLANNING TO REVIEW PT'S CASE TOMORROW DUE TO PT WANTING TO GO HOME BUT NEEDING NEW TRACH EDUCATION. INNER CANNULA CHANGED THIS SHIFT BY RT. NO FURTHER NEEDS OR CONCERNS AT THIS TIME.
[2020-03-18 04:36] LABS: BASOPHILS ABSOLUTE AUTO 0.05 K/mm3 (0.00-0.23); BASOPHILS PERCENT AUTO 1 % (0-2); EOSINOPHILS ABSOLUTE AUTO 0.17 K/mm3 (0.00-0.68); EOSINOPHILS PERCENT AUTO 3 % (0-6); Hematocrit 27.1 % (37.0-53.0); Hemoglobin 8.4 g/dL (13.5-17.5); IMMATURE GRAN ABSOLUTE AUTO 0.03 K/mm3 (0.00-0.10); IMMATURE GRAN PERCENT AUTO 1 % (0-1); LYMPHOCYTES ABSOLUTE AUTO 2.31 K/mm3 (0.84-5.20); LYMPHOCYTES PERCENT AUTO 38 % (21-46); MONOCYTES ABSOLUTE AUTO 0.82 K/mm3 (0.16-1.47); MONOCYTES PERCENT AUTO 14 % (4-13); Mean Corpuscular HGB 30.9 pg (26.0-34.0); Mean Corpuscular Volume 100 fL (80-100); Mean Platelet Volume 9.2 fL (9.1-12.4); NEUTROPHILS ABSOLUTE AUTO 2.66 K/mm3 (1.96-9.15); NEUTROPHILS PERCENT AUTO 44 % (41-73); Platelet Count 323 K/mm3 (150-400); RDW Coefficient Variation 12.7 % (11.7-14.2); RDW Standard Deviation 45.3 fL (35.1-46.3); Red Blood Cell Count 2.72 M/mm3 (4.30-5.90); White Blood Cell Count 6.04 K/mm3 (4.00-11.30)
[2020-03-18 04:54] LABS: Anion Gap 7 mmol/L (6-16); Blood Urea Nitrogen 14 mg/dL (8-24); CO2, Blood 25 mmol/L (21-32); Chloride, Blood 108 mmol/L (98-108); Creatinine, Blood 1.17 mg/dL (0.60-1.20); Glomerular Filtration Rate >60 (60-); Glucose, Blood 103 mg/dL (70-99); Sodium, Blood 140 mmol/L (136-145)
--- NOTE | 2020-03-18 05:51 | NUR ---
END OF SHIFT SUMMARY NO ACUTE CHANGES THIS SHIFT. VSS. AXO. TRACH CARE COMPLETED A COUPLE TIMES THIS SHIFT. PT DID NOT REQUIRE DEEP SUCTIONING THIS SHIFT. JPEG REMAINS INTACT FLUSHING EASILY. TRACH COLLAR IN PLACE. PICC REMAINS INTACT. PAIN BETTER CONTROLLED THIS SHIFT VS LAST TO BLE'S. PT TOLERATING FLUIDS/MEALS WELL. PT REMAINS PLEASANT AND COOPERATIVE. WILL CONTINUE TO MONITOR UNTIL SHIFT CHNAGE.
--- NOTE | 2020-03-18 07:26 | NUR ---
ASSUMED CARE: PT SITTING UPRIGHT IN BED, WATCHING TV. NO ACUTE NEEDS OR CONCERNS AT THIS TIME.
--- NOTE | 2020-03-18 11:29 | NUR ---
SPEECH THERAPIST STATED THAT DR PORTER IS PLANNING ON PLACING A FINESTRATED TRACH TODAY. AFTER SPEAKING WITH SPEECH THERAPY IT WAS DETERMINED THAT NEW TRACH TEACHING COULD BE DONE HERE AND PT WOULDN'T HAVE TO GO TO THE [facility] FOR THAT. CALL TO PRICING ANALYST WHO STATES SHE WILL WORK ON GETTING TUBE FEEDS ORDERED FOR PT. CALL TO DR HERNANDEZ TO LET HIM KNOW OF UPDATE AND THAT DC PULLING MACHINE OPERATOR STATES PT MAY BE ABLE TO HAVE EVERYTHING ARRANGED FOR DC IN NEXT FEW DAYS.
--- NOTE | 2020-03-18 12:30 | NUR ---
DR PORTER CAME IN TO CHANGE PT'S TRACH TO FENESTRATED, SIZE 6 WITH RT ASSISTANCE. SPEECH THERAPIST THEN CAME INTO ROOM TO BEGIN EDUCATION ON TRACH CARE. STATES SHE IS PLANNING ON SPREADING THE EDUCATION OVER 2 DAYS WITH PT'S PRESENT. MEETING TIME FOR TOMORROW COORDINATED FOR 10AM.
--- NOTE | 2020-03-18 15:07 | NUR ---
PT'S AT BEDSIDE AND REPORT THAT SHE WAS PROVIDED [facility] FEED SU[facility]PLIES [facility]. INSTRUCTED HER TO TAKE PICTURES OF SUPPLIES AND TO SHOW IT TO STAFF TOMORROW TO DETERMINE IF HE HAS THE NECESSARY SUPPLIES. PT ALSO STARTED COMPLAINING OF PAIN IN LUQ WITH DEEP BREATHS AND COUGHING. DENIED TENDERNESS NEAR JPDRAIN. BILE OUT PUT, DRAIN FLUSHES WELL WITHOUT RESISTANCE. CALL TO DR GLORIA TO REPORT PT'S CONCERNS. DR GLORIA AT BEDSIDE AT THIS TIME.
--- NOTE | 2020-03-18 18:36 | NUR ---
SHIFT SUMMARY: PT SWITCHED TO FENESTRATED TRACH TODAY. SPEECH THERAPY STARTED EDUCATING ON HOME USE OF TRACH. PLAN IS FOR FURTHER EDUCATION TOMORROW AND DETERMINE IF HE HAS ALL SUPPLIES FOR TUBE FEEDS. MEDICATED X1 FOR PAIN. DENIES FURTHER NEEDS OR CONCERNS AT THIS TIME.
--- NOTE | 2020-03-18 23:00 | NUR ---
FLUSH J-TUBE FLUSHED J-TUBE WITH 250 ML OF WATER. PT TOLERATED WELL.
--- NOTE | 2020-03-19 03:30 | NUR ---
JPEG FLUSHED JPEG FLUSEHD WITH 250 ML OF WATER. PT TOLERATED WELL.
[2020-03-19 05:11] LABS: BASOPHILS ABSOLUTE AUTO 0.04 K/mm3 (0.00-0.23); BASOPHILS PERCENT AUTO 1 % (0-2); EOSINOPHILS ABSOLUTE AUTO 0.13 K/mm3 (0.00-0.68); EOSINOPHILS PERCENT AUTO 2 % (0-6); Hemoglobin 9.1 g/dL (13.5-17.5); IMMATURE GRAN ABSOLUTE AUTO 0.03 K/mm3 (0.00-0.10); IMMATURE GRAN PERCENT AUTO 0 % (0-1); LYMPHOCYTES ABSOLUTE AUTO 2.73 K/mm3 (0.84-5.20); LYMPHOCYTES PERCENT AUTO 36 % (21-46); MONOCYTES ABSOLUTE AUTO 1.14 K/mm3 (0.16-1.47); MONOCYTES PERCENT AUTO 15 % (4-13); Mean Corpuscular HGB 31.7 pg (26.0-34.0); Mean Corpuscular HGB Conc 32.5 g/dL (31.5-36.5); Mean Corpuscular Volume 98 fL (80-100); Mean Platelet Volume 8.9 fL (9.1-12.4); NEUTROPHILS PERCENT AUTO 47 % (41-73); Platelet Count 270 K/mm3 (150-400); RDW Standard Deviation 45.5 fL (35.1-46.3); Red Blood Cell Count 2.87 M/mm3 (4.30-5.90); White Blood Cell Count 7.67 K/mm3 (4.00-11.30)
--- NOTE | 2020-03-19 05:45 | NUR ---
SHIFT SUMMARY PT SLEPT T/O SHIFT. J TUBE FLUSHED WITH 250 ML OF WATER Q 4. PT ABLE TO TURN SELF IN BED NEEDED. HUMIDIFIED AIR TO TRACHEOSTOMY T/O SHIFT. HR STABLE. BP STABLE. OXYGEN SATURATION ABOVE 92% ON RA. PT ALERT AND ORIENTED X 4. WILL CONTINUE TO MONITOR UNTIL REPORT GIVEN TO DAYSHIFT RN.
--- NOTE | 2020-03-19 08:52 | NUR ---
Jarad is awake, alert, and cooperative and calm this morning. Reports to Dr. Whitman that he has some minimal pain ongoing on his left side, as well as tenderness at the trache site. Reported to me that he slept "so-so" last night. This morning his skin is damp and he said that he was sweaty last night and warm. Noted elevated temperatures to 100.2 overnight, this morning pt reports not feeling feverish, and his temperature is 99.0 temporally. Also noted and reported to Dr that he is tachycardic at 125 bpm. No telemetry monitoring at this time. Blood pressure is stable. Plan today per noc shift Rn as well as the pt is that his is coming in at 1000 to have education for his trache care. Dr. Madrigal states that the J tube will remain in place at discharge in case it is needed for supplemental feedings. Dr. Madrigal stated he will check with the surgeon and probably discharge the pt home this afternoon.
[2020-03-19] MEDS ORDERED: ACET500 PO (12:52)
[2020-03-19] MEDS ORDERED: AMLO10 PO (12:53)
[2020-03-19] MEDS ORDERED: Catapres-Tts 21 EACH TOP (12:54)
[2020-03-19] MEDS ORDERED: HYDR1TAB94 PO (12:54)
[2020-03-19] MEDS ORDERED: PANT40 PO (12:55)
[2020-03-19] MEDS ORDERED: LABE200 PO (12:55)
--- NOTE | 2020-03-19 13:43 | NUR ---
The pt was given education this morning by Rachel Wild, speech therapist. This noontime he was demonstrating good care and flushing of the j-tube independently.
--- NOTE | 2020-03-19 15:27 | NUR ---
Spoke with Dr. Madrigal and he said that he will be putting in discharge orders soon. Melissa Ching is arranging for transport for the pt to go home, and Brittney is delivering all needed equipment to the pt's home today before 5 pm.
--- NOTE | 2020-03-19 18:32 | NUR ---
1922 Pt education was completed regarding pt's new prescriptions, taking blood pressure and keeping log to show his PCP at his hospital follow up on Mar.[address] Whitman. Pt states he is also following up with Dr. Nunes tomorrow. Additional medication ordered at discharge was Nicotine patch for 30 days. PICC line was discontinued in the left arm; site WNL. Pt is very eager to go home. [facility] wheelchair transport arrived just after 6 pm and took the pt out of room 10.
== END 2020-03-19 18:10 | disposition home or self-care (01) | DRG 907 ==
LOC: ER 14:50 → ICUE 18:13 → SURS 18:13 → ICUE 22:02 → SURS 02-18 15:15 → ICUE 02-18 19:15 → PCU 03-12 18:09
PROVIDERS: Family Medicine; Internal Medicine; Internal Medicine Critical Care Medicine; Internal Medicine Pulmonary Disease; Nurse Practitioner Acute Care; Pharmacist; Physician Assistant; ADMIT Surgery
PROC: 0D9A00Z Drainage of Jejunum with Drainage Device, Open Approach (ICD-10-PCS; 2020-02-17)
PROC: 0DQ60ZZ Repair Stomach, Open Approach (ICD-10-PCS; principal; 2020-02-17 17:30)
PROC: 06HM33Z Insertion of Infusion Device into Right Femoral Vein, Percutaneous Approach (ICD-10-PCS; 2020-02-19)
PROC: 5A1D70Z Performance of Urinary Filtration, Intermittent, Less than 6 Hours Per Day (ICD-10-PCS; 2020-02-19)
PROC: 5A09357 Assistance with Respiratory Ventilation, Less than 24 Consecutive Hours, Continuous Positive Airway Pressure (ICD-10-PCS; 2020-02-19)
PROC: 0BH18EZ Insertion of Endotracheal Airway into Trachea, Via Natural or Artificial Opening Endoscopic (ICD-10-PCS; 2020-02-19)
PROC: 5A1955Z Respiratory Ventilation, Greater than 96 Consecutive Hours (ICD-10-PCS; 2020-02-19)
PROC: 5A1D70Z Performance of Urinary Filtration, Intermittent, Less than 6 Hours Per Day (ICD-10-PCS; 2020-02-21)
PROC: 5A1D70Z Performance of Urinary Filtration, Intermittent, Less than 6 Hours Per Day (ICD-10-PCS; 2020-02-23)
PROC: 5A1D70Z Performance of Urinary Filtration, Intermittent, Less than 6 Hours Per Day (ICD-10-PCS; 2020-02-25)
PROC: 5A1D70Z Performance of Urinary Filtration, Intermittent, Less than 6 Hours Per Day (ICD-10-PCS; 2020-02-26)
PROC: 0BH18EZ Insertion of Endotracheal Airway into Trachea, Via Natural or Artificial Opening Endoscopic (ICD-10-PCS; 2020-02-27)
PROC: 5A1955Z Respiratory Ventilation, Greater than 96 Consecutive Hours (ICD-10-PCS; 2020-02-27)
PROC: 0BH18EZ Insertion of Endotracheal Airway into Trachea, Via Natural or Artificial Opening Endoscopic (ICD-10-PCS; 2020-03-04)
PROC: 0B928ZZ Drainage of Carina, Via Natural or Artificial Opening Endoscopic (ICD-10-PCS; 2020-03-04)
PROC: 30233N1 Transfusion of Nonautologous Red Blood Cells into Peripheral Vein, Percutaneous Approach (ICD-10-PCS; 2020-03-05)
DX: T85.528A Displacement of other gastrointestinal prosthetic devices, implants and grafts, initial encounter (principal); A41.9 Sepsis, unspecified organism; K65.9 Peritonitis, unspecified; J18.9 Pneumonia, unspecified organism; N17.0 Acute kidney failure with tubular necrosis; J96.01 Acute respiratory failure with hypoxia; F10.231 Alcohol dependence with withdrawal delirium; J98.11 Atelectasis; K66.8 Other specified disorders of peritoneum; I10 Essential (primary) hypertension; E78.5 Hyperlipidemia, unspecified; Z20.828 Contact with and (suspected) exposure to other viral communicable diseases; E86.0 Dehydration; F31.9 Bipolar disorder, unspecified; F17.210 Nicotine dependence, cigarettes, uncomplicated; C10.9 Malignant neoplasm of oropharynx, unspecified; E03.9 Hypothyroidism, unspecified; J45.909 Unspecified asthma, uncomplicated; Z92.21 Personal history of antineoplastic chemotherapy; Z92.3 Personal history of irradiation; D69.6 Thrombocytopenia, unspecified; E87.6 Hypokalemia; Z78.1 Physical restraint status
CPT/HCPCS: 31500; 31720; 36415; 36430; 36556; 36600; 70450; 71045; 74176; 74177; 74230; 80048; 80053; 80069; 80202; 81001; 82247; 82248; 82330; 82550; 82803; 82947; 83010; 83605; 83615; 83690; 83721; 83735; 83880; 84100; 84132; 84443; 84478; 84484; 85007; 85025; 85027; 85610; 85730; 86317; 86850; 86900; 86901; 86923; 87040; 87070; 87077; 87086; 87186; 87205; 87340; 87493; 92507; 92526; 92610; 92611; 93005; 93010; 93970; 94002; 94003; 94640; 94660; 94760; 94762; 96361; 96365-59; 96375; 97110; 97116; 97163; 97164; 97166; 97530; 97535; 99285-25; A9270; A9270-GY; C1751; C1752; C1769; C9113; J0330; J0360; J0610; J0696; J1170; J1450; J1630; J1644; J1940; J2060; J2250; J2370; J2405; J2543; J2704; J2920; J3010; J3370; J3411; J3475; J3480; J7030; J7042; J7050; J7070; J7120; P9016; Q0177; Q9967; U0004

== ENCOUNTER 2020-05-18 11:42 | Emergency (ER) | payer OTHER ==
[~2020-05-18] VITALS: Ht 185.4 cm; Wt 80.4 kg
[~2020-05-18 11:42] MED LIST changes: +ACET500 PO; +AMLO10 PO; +AMLODIPINE BESY10 MG PO; +ATORVASTATIN CA40 M1 PO; +Aspirin EC81 MG PO; +CHANTIX0.5 MG PO; +CLONIDINE1 EA10 TOP; +CYCLOBENZAPR; +Catapres-Tts 21 EACH TOP; +HYDPAM100 PO; +HYDPAM50 PO; +HYDR1TAB94 PO; +LABE200 PO; +LOSA50 PO; +NICO21TP TOP; +PANT40 PO; +PANTOPRAZOLE SO40 M2 PO; +XARELTO15 MG PO; +XARELTO20 MG PO; +ZYPREXA PO; +ZYPREXA15 MG PO
== END 2020-05-18 14:51 | disposition home or self-care (01) ==
LOC: ER 11:42
DX: T85.528A Displacement of other gastrointestinal prosthetic devices, implants and grafts, initial encounter (principal); Z87.891 Personal history of nicotine dependence; Z88.8 Allergy status to other drugs, medicaments and biological substances; Z79.899 Other long term (current) drug therapy; Z79.82 Long term (current) use of aspirin
CPT/HCPCS: 36415; 43762; 49465; 93005; 93010; 96360-59; 99283-25; J7030

== ENCOUNTER 2020-07-09 09:07 | Day surgery (SDC) | payer OTHER ==
[~2020-07-09] VITALS: Ht 185.4 cm; Wt 81.0 kg
--- NOTE | 2020-07-09 13:45 | NUR ---
PT AND S/O VERBALIZES UNDERSTANDING WRITTEN AND VERBAL ORDERS. PT IV DC'D. CATH INTAC. PRESSURE DSG IN PLACE. NO BLEEDING OR HEMATOMA NOTED. R IJ REMAINS CLEAR. NO BLEEDING NOTED. PT DC TO HOME VIA S/O BY BRIAN.
== END 2020-07-09 13:50 | disposition home or self-care (01) ==
LOC: MHTC 09:07
DX: Z45.89 Encounter for adjustment and management of other implanted devices (principal); Z86.718 Personal history of other venous thrombosis and embolism; Z86.711 Personal history of pulmonary embolism
CPT/HCPCS: 37193; 76937; 99152; C1773; C1894; J1644; J2250; J3010; J7030; J7040; Q9967

== ENCOUNTER 2020-12-14 19:32 | Emergency (ER) | payer OTHER ==
[~2020-12-14] VITALS: Ht 185.4 cm; Wt 72.6 kg
[2020-12-14 19:59] LABS: BASOPHILS ABSOLUTE AUTO 0.04 K/mm3 (0.00-0.23); BASOPHILS PERCENT AUTO 1 % (0-2); EOSINOPHILS ABSOLUTE AUTO 0.13 K/mm3 (0.00-0.68); EOSINOPHILS PERCENT AUTO 2 % (0-6); Hematocrit 34.9 % (37.0-53.0); IMMATURE GRAN ABSOLUTE AUTO 0.02 K/mm3 (0.00-0.10); IMMATURE GRAN PERCENT AUTO 0 % (0-1); LYMPHOCYTES ABSOLUTE AUTO 2.93 K/mm3 (0.84-5.20); LYMPHOCYTES PERCENT AUTO 51 % (21-46); MONOCYTES ABSOLUTE AUTO 0.64 K/mm3 (0.16-1.47); MONOCYTES PERCENT AUTO 11 % (4-13); Mean Corpuscular HGB 35.1 pg (26.0-34.0); Mean Corpuscular HGB Conc 34.4 g/dL (31.5-36.5); Mean Corpuscular Volume 102 fL (80-100); Mean Platelet Volume 8.3 fL (9.1-12.4); NEUTROPHILS ABSOLUTE AUTO 1.97 K/mm3 (1.96-9.15); NEUTROPHILS PERCENT AUTO 34 % (41-73); Platelet Count 168 K/mm3 (150-400); RDW Coefficient Variation 11.9 % (11.7-14.2); RDW Standard Deviation 44.8 fL (35.1-46.3); Red Blood Cell Count 3.42 M/mm3 (4.30-5.90); White Blood Cell Count 5.73 K/mm3 (4.00-11.30)
[2020-12-14 20:27] LABS: Alanine Aminotransfer (ALT/SGP 60 U/L (12-78); Albumin, Blood 3.2 g/dL (3.4-5.0); Albumin/Globulin Ratio 0.9 (0.8-1.8); Alk Phos 107 U/L (50-136); Anion Gap 9 mmol/L (6-16); Aspartate Aminotrans (AST/SGOT 77 U/L (12-37); Bilirubin, Total 0.2 mg/dL (0.1-1.0); Blood Urea Nitrogen 7 mg/dL (8-24); CO2, Blood 22 mmol/L (21-32); Calcium, Blood 7.7 mg/dL (8.5-10.1); Chloride, Blood 105 mmol/L (98-108); Creatinine, Blood 0.78 mg/dL (0.60-1.20); Globulin, Blood 3.4 g/dL (2.2-4.0); Glomerular Filtration Rate >60 (60-); Glucose, Blood 103 mg/dL (70-99); Potassium, Blood 3.5 mmol/L (3.5-5.5); Sodium, Blood 136 mmol/L (136-145); Total Protein, Blood 6.6 g/dL (6.4-8.2); Troponin I <0.015 ng/mL (0.000-0.040)
[2020-12-14 20:32] LABS: Ethanol (Alcohol), Blood, Med 413 mg/dL
[2020-12-14] MEDS ORDERED: METPRE4DP PO ×2 (21:31→21:41)
== END 2020-12-15 06:27 | disposition home or self-care (01) ==
LOC: ER 19:32
PROVIDERS: Emergency Medicine
DX: M50.821 Other cervical disc disorders at C4-C5 level (principal); S40.011A Contusion of right shoulder, initial encounter; S30.811A Abrasion of abdominal wall, initial encounter; S80.811A Abrasion, right lower leg, initial encounter; M48.02 Spinal stenosis, cervical region; F10.129 Alcohol abuse with intoxication, unspecified; Y90.8 Blood alcohol level of 240 mg/100 ml or more; I10 Essential (primary) hypertension; F17.210 Nicotine dependence, cigarettes, uncomplicated; Z88.8 Allergy status to other drugs, medicaments and biological substances; Z85.818 Personal history of malignant neoplasm of other sites of lip, oral cavity, and pharynx; Z79.01 Long term (current) use of anticoagulants; Z79.899 Other long term (current) drug therapy; V48.5XXA Car driver injured in noncollision transport accident in traffic accident, initial encounter
CPT/HCPCS: 36415; 70450; 71045; 72125; 80053; 84484; 85025; 93005; 93010; 99285-25; G0480

== ENCOUNTER 2021-01-08 06:57 | Inpatient (IN) | payer OTHER ==
[~2021-01-08] VITALS: Ht 185.4 cm; Wt 74.7 kg
[~2021-01-08 06:57] MED LIST changes: +METPRE4DP PO
[2021-01-08] MEDS ORDERED: PANT40 PO (08:16)
[2021-01-08] MEDS ORDERED: CLON.1 PO (08:17)
[2021-01-08] MEDS ORDERED: LOSARTAN-HCTZ1 EACH PO (08:17)
--- NOTE | 2021-01-08 08:43 | NUR ---
Patient up to Ambulate independently. Gait steady. History, Chart, Medications and Allergies reviewed before start of procedure.Lungs clear T/O to Auscultation. Patient confirms NPO status and agrees with scheduled surgery. ALL BELONINGS STOWED UNDER THE BED.
--- NOTE | 2021-01-08 11:07 | NUR ---
[facility]21 [facility]7 [facility]ATTIEIsidra GOODWIN ASKED PRIOR TO PROCEDURE IF HE WOULD LIKE TO ORDER PRE OP ANTIBIOTICS, DR VILLA, DID NOT WANT TO ORDER AT THIS TIME.
--- NOTE | 2021-01-08 16:41 | NUR ---
DISCHARGE PATIENT ADMIT TO FLOOR POST OP FOR OBSERVATION PER DR GOODWIN. PATIENT MET ALL DC CRITERIA (URINATED 300CC, TOLERATED REG DIET, PAIN CONTROLLED, VSS) PATIENT DISCHARGED IN STABLE CONDITION HOME. PATIENT AND SIGNIFICANT OTHER VERBALIZED UNDERSTANDING OF INSTRUCTIONS. PERIPHERAL IV REMOVED. PATIENT TAKEN DOWN TO FRONT LOBBY VIA WHEELCHAIR WITH ASSISTANCE FROM BLAST SETTER
== END 2021-01-08 16:41 | disposition home or self-care (01) | DRG 821 ==
LOC: SURS 06:57 → PRE IP 08:30 → SURS 14:41
PROVIDERS: ADMIT Otolaryngology
PROC: 07T20ZZ Resection of Left Neck Lymphatic, Open Approach (ICD-10-PCS; principal; 2021-01-08 08:30)
DX: C77.0 Secondary and unspecified malignant neoplasm of lymph nodes of head, face and neck (principal); R64 Cachexia; C10.9 Malignant neoplasm of oropharynx, unspecified; C09.9 Malignant neoplasm of tonsil, unspecified; F31.9 Bipolar disorder, unspecified; Z20.822 Contact with and (suspected) exposure to COVID-19; J45.909 Unspecified asthma, uncomplicated; K21.9 Gastro-esophageal reflux disease without esophagitis; I10 Essential (primary) hypertension; Z92.21 Personal history of antineoplastic chemotherapy; Z92.3 Personal history of irradiation; Z88.8 Allergy status to other drugs, medicaments and biological substances; Z68.21 Body mass index [BMI] 21.0-21.9, adult
CPT/HCPCS: 88305; A9270; J1100; J2250; J2370; J2405; J2704; J3010; J7120

== ENCOUNTER → 2021-04-17 | Outpatient (CLI) | payer OTHER ==
[~2021-04-17] MED LIST changes: +CLON.1 PO; +LOSARTAN-HCTZ1 EACH PO
== END | disposition home or self-care (01) ==
LOC: LAB SHORT 11:49
DX: Z01.812 Encounter for preprocedural laboratory examination (principal); R23.4 Changes in skin texture; L90.5 Scar conditions and fibrosis of skin
CPT/HCPCS: 88305; 88312

== ENCOUNTER 2021-04-22 05:56 | Day surgery (SDC) | payer OTHER ==
[~2021-04-22] VITALS: Ht 185.4 cm; Wt 67.0 kg
--- NOTE | 2021-04-22 06:50 | NUR ---
Ambulatory in Day SurgeryBair Paws warming gown applied. Surgical site prepped with 2% Chlorhexidine cloth wipe. History, Chart, Medications and Allergies reviewed before start of procedure.Lungs clear T/O to Auscultation. Patient confirms NPO status and agrees with scheduled surgery. Pre-Op teaching done. Pt verbalizes understanding. Patient States Post-Procedure ride home has been arranged. Patient reports completing Chlorhexadine shower X2 prior to admission to hospital.
[2021-04-22 07:31] LABS: BASOPHILS ABSOLUTE AUTO 0.03 K/mm3 (0.00-0.23); BASOPHILS PERCENT AUTO 0 % (0-2); EOSINOPHILS ABSOLUTE AUTO 0.02 K/mm3 (0.00-0.68); EOSINOPHILS PERCENT AUTO 0 % (0-6); Hematocrit 33.9 % (37.0-53.0); Hemoglobin 11.9 g/dL (13.5-17.5); IMMATURE GRAN ABSOLUTE AUTO 0.04 K/mm3 (0.00-0.10); IMMATURE GRAN PERCENT AUTO 1 % (0-1); LYMPHOCYTES ABSOLUTE AUTO 0.67 K/mm3 (0.84-5.20); LYMPHOCYTES PERCENT AUTO 10 % (21-46); MONOCYTES PERCENT AUTO 15 % (4-13); Mean Corpuscular HGB 37.3 pg (26.0-34.0); Mean Corpuscular HGB Conc 35.1 g/dL (31.5-36.5); Mean Corpuscular Volume 106 fL (80-100); Mean Platelet Volume 8.4 fL (9.1-12.4); NEUTROPHILS ABSOLUTE AUTO 5.06 K/mm3 (1.96-9.15); NEUTROPHILS PERCENT AUTO 74 % (41-73); Platelet Count 187 K/mm3 (150-400); RDW Coefficient Variation 19.7 % (11.7-14.2); RDW Standard Deviation 75.6 fL (35.1-46.3); Red Blood Cell Count 3.19 M/mm3 (4.30-5.90); White Blood Cell Count 6.82 K/mm3 (4.00-11.30)
[2021-04-22 07:51] LABS: SARS-Cov-2 (COVID-19) PCR, MMC NEGATIVE (NEGATIVE)
--- NOTE | 2021-04-22 08:22 | NUR ---
04/22/21 0822 Phu Pan RED DRY SKIN NOTED ON FACE, AVOIDED WITH PREP SOLUTION.
--- NOTE | 2021-04-22 09:54 | NUR ---
Patient up to Ambulate independently. Gait steady. Tejal Paws warming gown applied. Discharge instructions reviewed with patient. Patient verbalizes understanding. Copy given to patient to take home.Lungs clear T/O to Auscultation. Patient States Post-Procedure ride home has been arranged. Discharged via wheelchair to private car for ride home.
== END 2021-04-22 10:23 | disposition home or self-care (01) ==
LOC: ORSCMMR 05:56 → ORD 10:00 → ORSCMMR 10:23
PROVIDERS: Anesthesiology; Surgery
PROC: 05HM33Z Insertion of Infusion Device into Right Internal Jugular Vein, Percutaneous Approach (ICD-10-PCS; principal; 2021-04-22 07:30)
PROC: B543ZZA Ultrasonography of Right Jugular Veins, Guidance (ICD-10-PCS; principal; 2021-04-22 07:30)
DX: C10.8 Malignant neoplasm of overlapping sites of oropharynx (principal); J45.909 Unspecified asthma, uncomplicated; F31.9 Bipolar disorder, unspecified; I10 Essential (primary) hypertension; F32.A Depression, unspecified; Z79.899 Other long term (current) drug therapy; Z79.82 Long term (current) use of aspirin; F17.210 Nicotine dependence, cigarettes, uncomplicated
CPT/HCPCS: 36415; 77001; 85025; 86850; 86900; 86901; A9270; C1788; J0690; J1100; J1642; J2250; J2405; J2704; J3010; J7120; U0004

== ENCOUNTER 2021-08-09 12:31 | Inpatient (IN) | payer OTHER ==
[~2021-08-09] VITALS: Ht 185.4 cm; Wt 65.3 kg
[2021-08-09 13:39] LABS: BASOPHILS PERCENT AUTO 0 % (0-2); EOSINOPHILS PERCENT AUTO 0 % (0-6); Hemoglobin 7.6 g/dL (13.5-17.5); IMMATURE GRAN PERCENT AUTO 2 % (0-1); LYMPHOCYTES ABSOLUTE AUTO 0.16 K/mm3 (0.84-5.20); LYMPHOCYTES PERCENT AUTO 3 % (21-46); MONOCYTES ABSOLUTE AUTO 0.12 K/mm3 (0.16-1.47); MONOCYTES PERCENT AUTO 2 % (4-13); Mean Corpuscular HGB 39.4 pg (26.0-34.0); Mean Corpuscular HGB Conc 34.5 g/dL (31.5-36.5); Mean Corpuscular Volume 114 fL (80-100); Mean Platelet Volume 9.5 fL (9.1-12.4); NEUTROPHILS ABSOLUTE AUTO 4.71 K/mm3 (1.96-9.15); NEUTROPHILS PERCENT AUTO 93 % (41-73); NRBC ABSOLUTE 0.02 K/mm3 (0.00-0.02); NRBC Auto 0.4 /100 WBC (0.0-0.2); Platelet Count 73 K/mm3 (150-400); RDW Coefficient Variation 14.2 % (11.7-14.2); RDW Standard Deviation 59.1 fL (35.1-46.3); Red Blood Cell Count 1.93 M/mm3 (4.30-5.90); White Blood Cell Count 5.09 K/mm3 (4.00-11.30)
[2021-08-09 14:03] LABS: Alanine Aminotransfer (ALT/SGP 38 U/L (12-78); Albumin/Globulin Ratio 0.8 (0.8-1.8); Alk Phos 93 U/L (50-136); Anion Gap 9 mmol/L (6-16); Aspartate Aminotrans (AST/SGOT 29 U/L (12-37); Bilirubin, Total 0.3 mg/dL (0.1-1.0); Blood Urea Nitrogen 18 mg/dL (8-24); Bun/Creatinine Ratio 24.2 (12.0-20.0); CO2, Blood 26 mmol/L (21-32); Calcium, Blood 8.7 mg/dL (8.5-10.1); Chloride, Blood 92 mmol/L (98-108); Creatinine, Blood 0.75 mg/dL (0.60-1.20); Globulin, Blood 3.7 g/dL (2.2-4.0); Glomerular Filtration Rate >60 (60-); Glucose, Blood 145 mg/dL (70-99); Potassium, Blood 4.1 mmol/L (3.5-5.5); Sodium, Blood 127 mmol/L (136-145); Total Protein, Blood 6.7 g/dL (6.4-8.2)
[2021-08-09 14:51] LABS: Source, Urine Clean Catch
[2021-08-09 14:55] LABS: Appearance, Urine Clear (Clear); Bilirubin, Urine Neg (Neg); Blood, Urine Neg (Neg); Color, Urine Yellow (P-Yellow); Glucose Qualitative, Urine Neg (Neg); Ketones, Urine Neg (Neg); Leukocyte Esterase, Urine Neg (Neg); Nitrite, Urine Neg (Neg); Protein, Urine 1+ (Neg); Specific Gravity, Urine 1.005 (1.003-1.022); Urobilinogen, Urine NORM (Normal)
[2021-08-09 19:02] LABS: International Normalized Ratio 0.94; Prothrombin Time Results 9.9 Sec (9.7-11.5)
[2021-08-09] MEDS ORDERED: AMBIEN5 MG PO (21:29)
--- NOTE | 2021-08-10 02:58 | NUR ---
2030: ARRIVED FROM UNIT FROM PACU TRANSFERED TO BED FROM [facility]. PT APPEARS AOX4. REPORTS BEING IN PAIN 8/10 PAIN LEVEL. FENTANYL 50MCG GIVEN WITH NO RELIEF WITH PAIN, NORCO 2 TAB OF 5/325 GIVEN WITH IMRPOVEMENT. PODO EXP LAP LYSIS ADHESION WITH BLANCA DRESSING ON HIS MID ABD REGION, CDI. SUCTIONING WELL. ABLE TO WIGGLE ALL EXTREMITIES. REPORTS CHRONIC NUMBNESS DUE TO NEUROPATHY. VSS. PT DENIES CHEST PAIN AND SOB. PT ON 2L NC SATS OVER 95%. WEAN ON 1L AT NIGHT FOR COMFORT. CONT BIOX IN PLACED DUE TO HIGH RISK/PAIN MANAGEMENT. CALL LIGHT WITHIN REACH. WILL CONTINUE TO MONITOR.
--- NOTE | 2021-08-10 03:07 | NUR ---
BLOOD IN URINE PT 2 EPISODES OF BLOOD IN URINE (BRIGHT RED). 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 PT AMBULATES IN THE BATHROOM WITH SBA DENIES DIZZINESS AND LIGHT HEADEDNESS. WILL CONTINUE TO MONITOR.
--- NOTE | 2021-08-10 03:09 | NUR ---
CLEAR LIQUID PT TOLERATING CLEAR LIQ DIET AT THIS TIME, DENIES NAUSEA AND VOMITING.
[2021-08-10 04:50] LABS: BASOPHILS PERCENT AUTO 0 % (0-2); EOSINOPHILS PERCENT AUTO 0 % (0-6); Hematocrit 24.8 % (37.0-53.0); Hemoglobin 8.5 g/dL (13.5-17.5); IMMATURE GRAN ABSOLUTE AUTO 0.08 K/mm3 (0.00-0.10); IMMATURE GRAN PERCENT AUTO 1 % (0-1); LYMPHOCYTES ABSOLUTE AUTO 0.46 K/mm3 (0.84-5.20); LYMPHOCYTES PERCENT AUTO 7 % (21-46); MONOCYTES ABSOLUTE AUTO 0.22 K/mm3 (0.16-1.47); MONOCYTES PERCENT AUTO 3 % (4-13); Mean Corpuscular HGB 39.9 pg (26.0-34.0); Mean Corpuscular HGB Conc 34.3 g/dL (31.5-36.5); Mean Corpuscular Volume 116 fL (80-100); Mean Platelet Volume 9.4 fL (9.1-12.4); NEUTROPHILS PERCENT AUTO 89 % (41-73); NRBC ABSOLUTE 0.03 K/mm3 (0.00-0.02); NRBC Auto 0.5 /100 WBC (0.0-0.2); Platelet Count 68 K/mm3 (150-400); RDW Coefficient Variation 14.4 % (11.7-14.2); RDW Standard Deviation 61.1 fL (35.1-46.3); Red Blood Cell Count 2.13 M/mm3 (4.30-5.90); White Blood Cell Count 6.66 K/mm3 (4.00-11.30)
--- NOTE | 2021-08-10 04:59 | NUR ---
SHIFT SUMMARY POD0 EXP LAP FROM LYSIS ADHESION WITH DR. MACKAY LAST NIGHT. PT REPORTS PAIN RANGING FROM 8-10/10 CONSISTENTLY. APPEARS MOSTLY COMFORTABLE IN BED OVERNIGHT. PAIN MANAGED WITH 10MG NORCO, 50MCG FENTANYL AND 0.5ML MORPHINE. PT TOLERATES CLEAR LIQ DIET. HE HAS BEEN SNACKING CHRISTOPHER AND THIS MORNING HE TRIED 1 BOTTLE OF ENSURE. PT DENIES NAUSEA AND VOMITING. PT VOIDS TWICE WITH BRIGHT RED BLOOD BUT THE 2ND APPEARS TO BE LYMPHEDEMA THERAPIST. PT DENIES PAIN WHEN URINATION AND LEG PAIN. HX DVT. PT ON CONTINOUS BIOX FOR HIGH RISK PAIN MANAGEMENT. PT AMBULATES IN BATHROOM WITH 1 SBA. HE HAS BEEN STEADY ON HIS FEET. CALL [facility] WITHIN REACH. WILL PROVIDE REPORT TO ONCOMING NURSE.
[2021-08-10 05:04] LABS: Anion Gap 8 mmol/L (6-16); Blood Urea Nitrogen 14 mg/dL (8-24); Bun/Creatinine Ratio 20.4 (12.0-20.0); CO2, Blood 26 mmol/L (21-32); Calcium, Blood 8.8 mg/dL (8.5-10.1); Chloride, Blood 96 mmol/L (98-108); Creatinine, Blood 0.69 mg/dL (0.60-1.20); Glomerular Filtration Rate >60 (60-); Glucose, Blood 122 mg/dL (70-99); Phosphorus, Blood 3.4 mg/dL (2.5-4.9); Potassium, Blood 4.1 mmol/L (3.5-5.5); Sodium, Blood 130 mmol/L (136-145)
[2021-08-10] MEDS ORDERED: Diflucan100 MG PO (13:31)
[2021-08-10] MEDS ORDERED: OLAN20 MM (13:31)
[2021-08-10] MEDS ORDERED: SERT25 PO (13:32)
[2021-08-10] MEDS ORDERED: LOSA25 PO (13:32)
[2021-08-10] MEDS ORDERED: TAMS.4ER PO (13:33)
[2021-08-10] MEDS ORDERED: DECADRON4 M1 PO (13:33)
[2021-08-10] MEDS ORDERED: GABA300 PO (13:34)
[2021-08-10] MEDS ORDERED: Cyproheptadine H4 MG PO (13:34)
[2021-08-10] MEDS ORDERED: ATOR80 PO (13:34)
[2021-08-10] MEDS ORDERED: CHANTIX1 MG PO (13:35)
--- NOTE | 2021-08-10 17:56 | NUR ---
SHIFT SUMMARY POD 1 EXP LAP W/ NERY. MIDLINE BLANCA IN PLACE, NO NEW DRAINAGE THIS SHIFT. PATIENT STRUGGLED W/ PAINMANAGMENT THIS AM. DR MACKAY NOTIFIED AND GAVE VERBAL ORDERS TO GIVE IV TORADOL. PATEINT REPORTED MUCH BETTER PAIN MANAGMENT AFTER THAT & CONTINUED W/ NORCO Q4 PER EMAR T/O REMAINDER OF SHIFT, NO OTHER IV PAINI MEDICATION NEEDED. PAIN REPORTED TO BE 4-5/10. PATIENT HAS AMBULATED THE HALLWAYS INDEPENDENTLY W/ IV POLE MULTIPLE TIMES T/O SHIFT. DIET ADVANCED TO MECH SOFT, TOELRATING WELL. DENIES N/V. DENIES FLATUS & BM. VOIDING WELL & URINE RETURN BACK TO YELLOW IN COLOR, PATIENT REPORTS "IT DOES NOT BURN ANYMORE". WILL CONTINUE TO MONITOR & REPORT TO ONCOMING RN.
--- NOTE | 2021-08-11 04:43 | NUR ---
SUMMARY PAIN MANAGED WELL. PT HAS BEEN WALKING DURING SHIFT. PT REPORTS NO BM OR FLATUS. PT VOIDING YELLOW URINE. PT ABD DRESSING C/D/I. PT HAS SLEPT WELL THIS SHIFT. PT CURRENTLY SLEEPING IN NO DISTRESS. CALL LIGHT IN REACH.
[2021-08-11] MEDS ORDERED: HYDR1TAB94 PO (12:55)
--- NOTE | 2021-08-11 13:07 | NUR ---
DISCHARGE: PT IS EAGER TO GO HOME. AMBULATING WELL. EATING, DRINKING, VOIDING, PASSING GAS. NO BM AT THIS TIME. MD AWARE. PAIN WELL MANAGED AND SCRIPT GIVEN TO PATIENT WITH DISCHARGE INSTRUCTIONS. DECLINES WHEELCHAIR OUT. AMBULATES WITH TO PRIVATE VEHICLE.
== END 2021-08-11 13:10 | disposition home or self-care (01) | DRG 335 ==
LOC: ER 12:31 → SURS 17:29
PROVIDERS: Internal Medicine; Physician Assistant; Student in an Organized Health Care Education/Training Program; ADMIT Surgery
PROC: 0DN80ZZ Release Small Intestine, Open Approach (ICD-10-PCS; principal; 2021-08-09 18:00)
PROC: 0DNW0ZZ Release Peritoneum, Open Approach (ICD-10-PCS; 2021-08-09 18:00)
DX: K56.50 Intestinal adhesions [bands], unspecified as to partial versus complete obstruction (principal); D61.810 Antineoplastic chemotherapy induced pancytopenia; E87.1 Hypo-osmolality and hyponatremia; R11.2 Nausea with vomiting, unspecified; D69.59 Other secondary thrombocytopenia; T45.1X5A Adverse effect of antineoplastic and immunosuppressive drugs, initial encounter; D63.8 Anemia in other chronic diseases classified elsewhere; I10 Essential (primary) hypertension; E78.5 Hyperlipidemia, unspecified; E03.9 Hypothyroidism, unspecified; F31.9 Bipolar disorder, unspecified; N40.0 Benign prostatic hyperplasia without lower urinary tract symptoms; K21.9 Gastro-esophageal reflux disease without esophagitis; J45.909 Unspecified asthma, uncomplicated; F41.9 Anxiety disorder, unspecified; F10.20 Alcohol dependence, uncomplicated; Z88.8 Allergy status to other drugs, medicaments and biological substances; Z79.82 Long term (current) use of aspirin; Z79.899 Other long term (current) drug therapy; Z98.890 Other specified postprocedural states; Z92.3 Personal history of irradiation; Z85.819 Personal history of malignant neoplasm of unspecified site of lip, oral cavity, and pharynx; Z87.891 Personal history of nicotine dependence
CPT/HCPCS: 36415; 74018; 74177; 80053; 80069; 83605; 83690; 85025; 85610; 85730; 86850; 86900; 86901; 86923; 94762; 96374; 99285-25; A9270; J0330; J0690; J1100; J1170; J1650; J1885; J2270; J2274; J2405; J2550; J2704; J3010; J7030; J7120; Q9967

== ENCOUNTER 2021-08-13 21:33 | Inpatient (IN) | payer OTHER ==
[~2021-08-13] VITALS: Ht 185.4 cm; Wt 69.2 kg
[~2021-08-13 21:33] MED LIST changes: +AMBIEN5 MG PO; +ATOR80 PO; +CHANTIX1 MG PO; +Cyproheptadine H4 MG PO; +DECADRON4 M1 PO; +Diflucan100 MG PO; +GABA300 PO; +LOSA25 PO; +OLAN20 MM; +SERT25 PO; +TAMS.4ER PO
[2021-08-13 22:08] LABS: Hemoglobin 6.5 g/dL (13.5-17.5); Mean Corpuscular HGB 39.6 pg (26.0-34.0); Mean Corpuscular HGB Conc 34.2 g/dL (31.5-36.5); Mean Corpuscular Volume 116 fL (80-100); Mean Platelet Volume 9.5 fL (9.1-12.4); NRBC ABSOLUTE 0.02 K/mm3 (0.00-0.02); NRBC Auto 0.5 /100 WBC (0.0-0.2); Platelet Count 59 K/mm3 (150-400); RDW Coefficient Variation 14.7 % (11.7-14.2); RDW Standard Deviation 61.9 fL (35.1-46.3); Red Blood Cell Count 1.64 M/mm3 (4.30-5.90); White Blood Cell Count 4.17 K/mm3 (4.00-11.30)
[2021-08-13 22:19] LABS: Albumin, Blood 2.2 g/dL (3.4-5.0); Albumin/Globulin Ratio 0.7 (0.8-1.8); Bilirubin, Total 0.6 mg/dL (0.1-1.0); Bun/Creatinine Ratio 15.8 (12.0-20.0); Calcium, Blood 7.4 mg/dL (8.5-10.1); Creatinine, Blood 1.84 mg/dL (0.60-1.20); Potassium, Blood 3.6 mmol/L (3.5-5.5); Total Protein, Blood 5.2 g/dL (6.4-8.2)
[2021-08-13 22:48] LABS: BAND PERCENT MAN 21 % (0-8); BASOPHILS PERCENT MAN 0 % (0-2); EOSINOPHILS PERCENT MAN 0 % (0-6); LYMPHOCYTES ABSOLUTE MAN 0.79 K/mm3 (0.84-5.20); LYMPHOCYTES PERCENT MAN 19 % (21-46); METAMYELOCYTE ABSOLUTE MAN 0.16 K/mm3 (0.00-0.00); METAMYELOCYTE PERCENT MAN 4 % (0-0); MONOCYTES ABSOLUTE MAN 0.08 K/mm3 (0.16-1.47); MONOCYTES PERCENT MAN 2 % (4-13); NEUTROPHILS ABSOLUTE MAN 3.12 K/mm3 (1.96-9.15); SEG NEUTROPHILS PERCENT MAN 54 % (41-73); TOTAL CELLS COUNTED 100
[2021-08-13 23:07] LABS: Influenza A, PCR NEGATIVE (NEGATIVE); Influenza B, PCR NEGATIVE (NEGATIVE); Resp Syncytial Virus, PCR NEGATIVE (NEGATIVE); SARS-Cov-2 (COVID-19) PCR, MMC NEGATIVE (NEGATIVE)
--- NOTE | 2021-08-14 06:09 | NUR ---
RN OSTOMY SUMMARY PT IS AXO X4 AND COMMUNICATING APPROPRIATELY. PT ARRIVED TO THE UNIT AND W MINIMAL ACTIVITY HIS O2 SATS DROPPED TO 80% SO HE WAS PLACED ON CPAP W 10L BLEEDIN TO MAINTAIN O2 SATS >90%. PT DID REMOVE HIS MASK ONCE THIS SHIFT AND RAPIDLY DESATTED INTO THE 80'S. AFTER THE PT RECEIVED HIS 2ND UNIT OF PRBC'S I WAS ABLE TO TITRATE HIS O2 DOWN. TELE SHOWIN ST 100-110'S THIS SHIFT. BP WNL AND STABLE SINCE ARRIVING TO THE UNIT. PT'S ABDOMEN IS VERY DISTENDED AND HIS BT'S ARE HYPOACTIVE, NO EPISODES OF EMESIS THIS SHIFT. PT ABLE TO SLEEP MUCH OF THE SHIFT W CALL LIGHT WITHIN REACH. WILL REPORT TO ONCOMING RN.
[2021-08-14 06:13] LABS: Anion Gap 8 mmol/L (6-16); Blood Urea Nitrogen 23 mg/dL (8-24); Bun/Creatinine Ratio 20.9 (12.0-20.0); CO2, Blood 25 mmol/L (21-32); Calcium, Blood 7.2 mg/dL (8.5-10.1); Chloride, Blood 100 mmol/L (98-108); Glomerular Filtration Rate >60 (60-); Glucose, Blood 85 mg/dL (70-99); Potassium, Blood 3.1 mmol/L (3.5-5.5); Sodium, Blood 133 mmol/L (136-145)
[2021-08-14 06:15] LABS: Hematocrit 24.3 % (37.0-53.0); Hemoglobin 8.1 g/dL (13.5-17.5); Mean Corpuscular HGB 35.1 pg (26.0-34.0); Mean Corpuscular HGB Conc 33.3 g/dL (31.5-36.5); Mean Platelet Volume 9.7 fL (9.1-12.4); Platelet Count 54 K/mm3 (150-400); RDW Coefficient Variation 21.3 % (11.7-14.2); RDW Standard Deviation 81.1 fL (35.1-46.3); Red Blood Cell Count 2.31 M/mm3 (4.30-5.90); White Blood Cell Count 4.28 K/mm3 (4.00-11.30)
[2021-08-14 06:18] LABS: Mean Corpuscular Volume 105 fL (80-100)
[2021-08-14 06:42] LABS: BAND PERCENT MAN 39 % (0-8); BASOPHILS PERCENT MAN 0 % (0-2); EOSINOPHILS ABSOLUTE MAN 0.04 K/mm3 (0.00-0.68); EOSINOPHILS PERCENT MAN 1 % (0-6); LYMPHOCYTES ABSOLUTE MAN 0.17 K/mm3 (0.84-5.20); LYMPHOCYTES PERCENT MAN 4 % (21-46); MONOCYTES ABSOLUTE MAN 0.12 K/mm3 (0.16-1.47); MONOCYTES PERCENT MAN 3 % (4-13); NEUTROPHILS ABSOLUTE MAN 3.93 K/mm3 (1.96-9.15); SEG NEUTROPHILS PERCENT MAN 53 % (41-73); TOTAL CELLS COUNTED 100
--- NOTE | 2021-08-14 09:38 | NUR ---
AM NOTE: ALERT AND ORIENTED X4. PERRLA. HISTORY OF BLE NEUROPATHY. ABLE TO MOVE ALL EXTREMITIES. BEDREST AT THIS TIME. ABLE TO TURN SELF. TELE SHOWING SINUS TACH WITH HR 100-120'S. DENIES CHEST PAIN/PRESSURE. BP STABLE. NO SIGNS OF EDEMA. ON 12-14L OXYMIZER THIS AM SATING LOW 90'S. CPAP AT BEDSIDE ON STANDBY. LUNGS SOUNDING COARSE AND CRACKLES HEARD IN BASES. NO COUGH AT THIS TIME. MIDLINE ABOMINAL BLANCA WOUND VAC IN PLACE. WITH BRUISING AROUND SITE. ABDOMEN FIRM AND DISTENDED. PATIENT DENIES PAIN. STATES HE HAS NOT HAD A GOOD BOWEL MOVMENT SINCE SBO SURGERY. HYPOACTIVE BOWEL TONES. MILD TEMP THIS AM AT 99.5 TYLENOL GIVEN. NPO STATUS PENDING SURG CONSULT. DR. Guidry IN THIS AM TO ASSESS PATIENT. NO NEW ORDERS AT THIS TIME. PLAN FOR DR. Guidry TO PLACE SURG CONSULT. CALL LIGHT IN REACH. LR AND POTSSIUM INFUSING AT THIS TIME. PATIENT DENIES NEEDS. WILL CONTINUE TO MONITOR.
--- NOTE | 2021-08-14 11:52 | NUR ---
UPDATE: SPOKE WITH DR. Guidry ON PHONE. NO SURG CONSULT AT THIS TIME. TREATING PATIENT FOR PNA. ABLE TO TITRATE PATIENT DOWN TO 9L OXYMIZER. VERY SLEEPY. CONTINUES TO DENY PAIN. BP ON SOFTER SIDE. RECIEVEING LR INFUSION AT 125 ML/HR. PLAN FOR DR. Guidry TO PLACE DIET ORDER. WILL CONTINUE TO MONITOR.
--- NOTE | 2021-08-14 14:14 | NUR ---
UPDATE: PATIENT HAD LARGE BOWEL MOVEMENT THIS AFTERNOON. PT STATES HE IS FEELING A LITTLE BETTER OVERALL. REQUESTING FOOD. CALL PLACED TO DR. HERNANDEZ, ADVANCE TOLERATED STARTING OUT WITH BROTHS. PATIENT TOLERATING BROTH AT THIS TIME. HOME MEDS ORDERED. VITAL SIGNS REMAINS STABLE. ON 9L OXYMIZER. LUNGS STILL SOUNDING COARSE/CRACKLES. LR INFUSING AT 125ML/HR. GOOD URINE OUTPUT. CALL LIGHT IN REACH.
--- NOTE | 2021-08-14 17:53 | NUR ---
SHIFT SUMMARY: PATIENT REMAINS ALERT AND ORIENTED THROUGHOUT SHIFT. NO CHANGES IN NEURO. TELE CONTINUES TO SHOW SINUS TACH WITH HR 100-120'S. DENIES CHEST PAIN/PRESSURE. BLOOD PRESSURE STABLE. ABLE TO TITRATE DOWN TO 7L OXYMIZER. THIS RN HEARD COARSE/CRACKLES IN RUL. OCCASIONAL COUGH. COMPLAINS OF SOME ABDOMINAL PAIN WHEN COUGHING. BLANCA WOUND VAC DRAIN REMAINS IN PLACE. DRESSING UNCHANGED. HOME PAIN MEDS ORDERED AND GIVEN. SOME RELIEF WITH NORCO. GREAT URINE OUTPUT. 2 LARGE BOWEL MOVEMENTS THIS SHIFT. DIET ADVANCE TOLERATED. AT THIS TIME FULL LIQUID DIET, AND TOLERATING. DRINKING FLUIDS. UP TO BEDSIDE COMMODE X1 PERSON ASSIST. FAMILY AT BEDSIDE THIS AFTERNOON. DENIES NEEDS AT THIS TIME. WILL CONTINUE TO MONITOR.
[2021-08-15 04:17] LABS: Hematocrit 26.3 % (37.0-53.0); Hemoglobin 8.2 g/dL (13.5-17.5); Mean Corpuscular HGB 35.5 pg (26.0-34.0); Mean Corpuscular HGB Conc 31.2 g/dL (31.5-36.5); Mean Platelet Volume 9.9 fL (9.1-12.4); NRBC ABSOLUTE 0.02 K/mm3 (0.00-0.02); NRBC Auto 0.6 /100 WBC (0.0-0.2); Platelet Count 51 K/mm3 (150-400); RDW Coefficient Variation 23.2 % (11.7-14.2); RDW Standard Deviation 95.4 fL (35.1-46.3); Red Blood Cell Count 2.31 M/mm3 (4.30-5.90); White Blood Cell Count 3.45 K/mm3 (4.00-11.30)
[2021-08-15 04:32] LABS: Anion Gap 7 mmol/L (6-16); Blood Urea Nitrogen 13 mg/dL (8-24); Bun/Creatinine Ratio 15.9 (12.0-20.0); CO2, Blood 24 mmol/L (21-32); Calcium, Blood 7.9 mg/dL (8.5-10.1); Chloride, Blood 107 mmol/L (98-108); Creatinine, Blood 0.82 mg/dL (0.60-1.20); Glomerular Filtration Rate >60 (60-); Glucose, Blood 78 mg/dL (70-99); Mean Corpuscular Volume 114 fL (80-100); Potassium, Blood 3.5 mmol/L (3.5-5.5); Sodium, Blood 138 mmol/L (136-145)
[2021-08-15 05:03] LABS: BAND PERCENT MAN 13 % (0-8); BASOPHILS PERCENT MAN 0 % (0-2); EOSINOPHILS PERCENT MAN 0 % (0-6); LYMPHOCYTES ABSOLUTE MAN 0.37 K/mm3 (0.84-5.20); LYMPHOCYTES PERCENT MAN 11 % (21-46); MONOCYTES PERCENT MAN 3 % (4-13); NEUTROPHILS ABSOLUTE MAN 2.96 K/mm3 (1.96-9.15); SEG NEUTROPHILS PERCENT MAN 73 % (41-73); TOTAL CELLS COUNTED 100
--- NOTE | 2021-08-15 05:25 | NUR ---
MAINTENANCE CRAFTSMAN SUMMARY PT HAS REMAINED AXO X4 AND COMMUNICATING APPROPRIATELY THIS SHIFT. PT SLEPT FOR MOST OF THE SHIFT W CPAP W 5L BLEED IN HOWEVER WHEN HE AWOKE HIS AM HE WANTED TO TAKE OFF THE MASK AND REQUIRED 12-14L OXYMIZER TO MAINTAIN O2 SATS >90% BP WNL AND STABLE. TELE STILL SHOWING ST 100-110'S. PT ABLE TO TOLERATE ICE CREAM W/O ANY PAIN OR NAUSEA. PT'S ABDOMEN MUCH SOFTER THIS SHIFT AND BOWEL TONES ARE ACTIVE X4. PT HAD ONE POSITIVE BLOOD CULTURE REPORTED THIS SHIFT AND PHARMACY CONTACTED TO CONFIRM ABX COVERAGE. WILL REPORT TO ONCOMING RN.
--- NOTE | 2021-08-15 10:10 | NUR ---
CARE ASSUMPTION THIS RN ASSUMED CARE FROM NERY RAO AT 0700. PATIENT ALERT AND ORIENTED X4. NEURO INTACT. PERRLA. PATIENT REPORTS NUMBNESS AND TINGLING TO UPPER AND LOWER EXTREMITIES BILATERALLY DUE TO THE CHEMO HE RECEIVED. VSS. SPO2 >95% ON 4L OXYMIZER. PATIENT LUNG SOUNDS CLEAR AND CRACKS IN THE BASES BILATERALLY. PATIENT REPORTS NO SHORTNESS OF BREATH. PATIENT REPORTS NO CHEST PAIN AND HAS STROONG RADAIL AND PEDIS PULSES. PATIENT REPORTS ABD PAIN. PATIENT HAS A WOUND VAC IN PLACE FROM SURGERY THAT HE HAD RECENTLY. PATIENT ABD HAS SOME BRUSING, FIRM AND DISTENDED WITH HYPOACTIVE BOWEL TONES. SKIN HAS SCATTERED BRUSING THROUGHOUT. REDDNESS TO COCCYX. ENCOURAGED REPOSITIONING EVERY TWO HOURS AND MEPILEX IN PLACE. PATIENT REPORTED BACK PAIN LATER THIS AM AND PLACED A HEATING PAD TO HIS BACK AND STATED THAT PROVIDED RELIEF. PATIENT CALLS IF HE NEEDS ASSISTANCE. PATIENT HAS NO QUESTIONS OR CONCERNS AND UNDERSTANDS HIS PLAN OF CARE. THIS RN PROVIDED EDUCATION WITH THERAPUETIC COMMUNICATION AND ACTIVE LISTENING. CALL LIGHT WITHIN REACH AND BED IN LOWEST POSITION. WILL CONTINUE TO MONITOR AND PROVIDE CARE.
--- NOTE | 2021-08-15 14:08 | NUR ---
UPDATE KYLIE NEURO REMAINS INTACT. PATIENT WAS WANTING TO GO FOR A WALK, BUT HAS BEEN ON BEDREST. PATIENT AGREED TO GETTING UP IN ROOM TO SEE HOW HIS OXYGEN DEMAND HANDLED HIS ACTIVITY. PATIENT WAS ON 6L NC. KYLIE AMBULATED IN ROOM AND WALKED THE ROOM ABOUT 10 TIMES. PATIENT SPO2 DROPPED TO 83 AND PATIENT STATED HE WAS FEELING TIRED. PATIENT SAT BACK IN BED. PATIENT SPO2 DROPPED TO 70 AND THEN RECOVERED WITHIN 30 SECONDS BACK TO 88. PATIENT SPO2 HUNG OUT AT 88/89 FOR ABOUT A MINUTE AND THEN WENT UP TO 90/91. PATIENT SPO2 IS CURRENTLY AT 92% ON 6L NC. PATIENT AMBULATED INDEPDENTLY AND PATIENT DID USE A WALKER SINCE IT WAS HIS FIRST TIME GETTING UP. PATIENT TOLERATED IT VERY WELL AND WAS HAPPY WITH HIS PROGRESS. WILL CONTINUE TO MONITOR AND PROVIDE CARE. BED IN LOWEST POSITION AND CALL LIGHT WITHIN REACH.
--- NOTE | 2021-08-15 17:28 | NUR ---
SHIFT SUMMARY PATIENT NEURO REMAINS INTACT. ALERT AND ORIENTED X4. PERRLA. PATIENT HAS BILATERAL NEUROPATHY IN UPPER AND LOWER EXTREMITIES. VSS. SPO2 >90% ON 4L NC. TELE SINUS TACH 100-110S. PATIENT USES CALL LIGT APPROPRIATELY AND USES BEDSIDE URINAL INDEPDENTLY. PATIENT REPORTS NO CHEST PAIN/PRESSURE, SHORTNESS OF BREATH OR PAIN AT THIS TIME. NO ACUTE CHANGES THIS SHIFT. CALL LIGHT IS WITHIN REACH AND BED IN LOWEST POSITION. WILL CONTINUE TO MONITOR AND PROVIDE CARE UNTIL HAND OFF WITH NEXT SHIFT.
--- NOTE | 2021-08-16 03:50 | NUR ---
INCREASED O2 NEEDS PATIENT WOKE UP DURING MORNING VITALS, USED URINAL AND DESATTED INTO HIGH 70s FOR ABOUT 10 MINUTES. RT AT BEDSIDE WITH THIS RN. DECISION TO TRANSITION PATIENT TO HIGH FLOW, HUMIDIFIED NC. PATIENT TOLERATING INCREASED O2 WELL. O2 SATURATION LOW TO MID 90s ON 10L HF NC. WILL TITRATE 02 DOWN PATIENT TOLERATES.
--- NOTE | 2021-08-16 05:25 | NUR ---
SHIFT SUMMARY PATIENT REMAINS ALERT AND ORIENTED x4, SLEPT MAJORITY OF SHIFT. VSS. PATIENT ON 10L HUMIDIFIED HF NC WITH O2 SAT LOW TO MID 90s. SEE PREVIOUS NOTE REGARDING INCREASED O2 NEEDS. PATIENT DESATS WITH MINIMAL ACTIVITY BUT IS ABLE TO RECOVER AFTER APPROXIMATELY 3 MINUTES. TELE READING SINUS TACH THIS SHIFT. MEDICATED PER EMAR FOR PAIN. OFFERED PATIENT REPOSITIONING DURING ROUNDING BUT PATIENT DECLINED AND STATED HE CAN ADJUST HIMESELF. USING URINAL AT BEDSIDE INDEPENDENTLY. ABLE TO MAKE NEEDS KNOWN TO STAFF. NO OTHER ACUTE CHANGES, WILL REPORT TO DAY SHIFT RN.
[2021-08-16 07:22] LABS: BASOPHILS ABSOLUTE AUTO 0.01 K/mm3 (0.00-0.23); BASOPHILS PERCENT AUTO 0 % (0-2); LYMPHOCYTES ABSOLUTE AUTO 0.57 K/mm3 (0.84-5.20); LYMPHOCYTES PERCENT AUTO 18 % (21-46); MONOCYTES PERCENT AUTO 3 % (4-13); Mean Corpuscular HGB 35.7 pg (26.0-34.0); Mean Corpuscular HGB Conc 33.3 g/dL (31.5-36.5); Mean Platelet Volume 8.6 fL (9.1-12.4); RDW Coefficient Variation 21.5 % (11.7-14.2); RDW Standard Deviation 82.9 fL (35.1-46.3); Red Blood Cell Count 2.24 M/mm3 (4.30-5.90); White Blood Cell Count 3.23 K/mm3 (4.00-11.30)
[2021-08-16 07:29] LABS: EOSINOPHILS ABSOLUTE AUTO 0.02 K/mm3 (0.00-0.68); EOSINOPHILS PERCENT AUTO 1 % (0-6); IMMATURE GRAN ABSOLUTE AUTO 0.02 K/mm3 (0.00-0.10); IMMATURE GRAN PERCENT AUTO 1 % (0-1); NEUTROPHILS ABSOLUTE AUTO 2.51 K/mm3 (1.96-9.15); NEUTROPHILS PERCENT AUTO 78 % (41-73)
[2021-08-16 07:30] LABS: Mean Corpuscular Volume 107 fL (80-100); Platelet Count 46 K/mm3 (150-400)
[2021-08-16 07:50] LABS: Vancomycin, Trough 26.1 ug/mL (5.0-10.0)
--- NOTE | 2021-08-16 17:20 | NUR ---
SHIFT SUMMARY PT REMAINS ALERT AND ORIENTED. HR HAS BEEN SINUS TACH 110'S. BP STABLE. PT TITRATED FROM 11L NC THIS AM TO 5L NC WITH SATS MAINTINING ABOVE 90%. PT REPORTS FEELING EASIER TO BREATHE THIS SHIFT. PT ABLE TO AMBULATE AROUND ROOM WITH MINIMAL ASSISTANCE TODAY. PT UP TO BATHROOM MULTIPLE TIMES. DRESSING TO ABD REMOVED TODAY PT STATED DR. MACKAY TOLD HIM TO REMOVE IT TODAY. GEORGETTE NOTED AND WOUND CLEANED AND LEFT OPEN TO AIR. PT COMPLAINED OF PAIN EARLIER THIS SHIFT AND MEDICATED PER EMAR. FAMILY AT BEDSIDE. WILL CONTINUE TO MONITOR AND REPORT TO ONCOMING RN
[2021-08-17 04:18] LABS: BASOPHILS ABSOLUTE AUTO 0.02 K/mm3 (0.00-0.23); BASOPHILS PERCENT AUTO 1 % (0-2); EOSINOPHILS ABSOLUTE AUTO 0.02 K/mm3 (0.00-0.68); EOSINOPHILS PERCENT AUTO 1 % (0-6); Hemoglobin 8.2 g/dL (13.5-17.5); Mean Corpuscular HGB 34.6 pg (26.0-34.0); Mean Corpuscular HGB Conc 32.8 g/dL (31.5-36.5); Mean Corpuscular Volume 106 fL (80-100); RDW Standard Deviation 81.6 fL (35.1-46.3); Red Blood Cell Count 2.37 M/mm3 (4.30-5.90); White Blood Cell Count 2.95 K/mm3 (4.00-11.30)
[2021-08-17 04:23] LABS: Anion Gap 5 mmol/L (6-16); Blood Urea Nitrogen 10 mg/dL (8-24); CO2, Blood 29 mmol/L (21-32); Calcium, Blood 7.9 mg/dL (8.5-10.1); Chloride, Blood 101 mmol/L (98-108); Creatinine, Blood 0.77 mg/dL (0.60-1.20); Glomerular Filtration Rate >60 (60-); Glucose, Blood 86 mg/dL (70-99); Potassium, Blood 3.7 mmol/L (3.5-5.5); Sodium, Blood 135 mmol/L (136-145)
[2021-08-17 05:12] LABS: IMMATURE GRAN ABSOLUTE AUTO 0.06 K/mm3 (0.00-0.10); IMMATURE GRAN PERCENT AUTO 2 % (0-1); LYMPHOCYTES PERCENT AUTO 27 % (21-46); MONOCYTES PERCENT AUTO 3 % (4-13); Mean Platelet Volume 10.1 fL (9.1-12.4); NEUTROPHILS ABSOLUTE AUTO 1.95 K/mm3 (1.96-9.15); NEUTROPHILS PERCENT AUTO 66 % (41-73)
[2021-08-17 05:13] LABS: Platelet Count 48 K/mm3 (150-400)
--- NOTE | 2021-08-17 05:53 | NUR ---
SHIFT SUMMARY PATIENT ALERT AND ORIENTED x4. VSS. HR SINUS TACH 110s. PATIENT ON 10L NC OVERNIGHT WHILE SLEEPING WITH O2 SAT >90%. PATIENT DESATS WITH ACTIVITY BUT IS ABLE TO RECOVER WITHIN A COUPLE MINUTES. MIDLINE INCISION COVERED WITH MEDIPORE DRESSING FOR COMFORT, NO DRAINAGE NOTED FROM INCISION. PATIENT ABLE TO AMBULATE TO BATHROOM WITH STANDBY ASSIST. MEDICATED PER EMAR WITH TYLENOL FOR LOW GRADE FEVER. NO OTHER SIGNIFICANT CHANGES THIS SHIFT. WILL REPORT TO DAY SHIFT RN.
--- NOTE | 2021-08-17 17:02 | NUR ---
SHIFT SUMMARY PT REMAINS ALERT AND ORIENTED. VS STABLE. O2 SATS HAVE REMAINED ABOVE 90% AND PT TITRATED DOWN TO 3L NC. BP STABLE. STATUS CHANGED TO MEDICAL WITHOUT TELEMETRY. PT COMPLAINS OF PAIN ON AND OFF IN HIS ABD. ABD SITE WNL. PT STATES HE HAD SMALL BM THIS SHIFT AND PASSING GAS. PT UP AND WALKING AROUND ROOM OFTEN THIS SHIFT. PT USING INCENTIVE SPIROMETER. WILL CONTINUE TO MONITOR AND REPORT TO ONCOMING RN. CALL LIGHT IN REACH
[2021-08-18 03:45] LABS: Hematocrit 24.5 % (37.0-53.0); Mean Corpuscular HGB 35.1 pg (26.0-34.0); Mean Corpuscular HGB Conc 32.7 g/dL (31.5-36.5); Mean Corpuscular Volume 108 fL (80-100); Mean Platelet Volume 9.3 fL (9.1-12.4); RDW Coefficient Variation 20.8 % (11.7-14.2); RDW Standard Deviation 81.5 fL (35.1-46.3); Red Blood Cell Count 2.28 M/mm3 (4.30-5.90); White Blood Cell Count 2.57 K/mm3 (4.00-11.30)
[2021-08-18 03:47] LABS: Platelet Count 42 K/mm3 (150-400)
[2021-08-18 04:01] LABS: Anion Gap 6 mmol/L (6-16); Blood Urea Nitrogen 14 mg/dL (8-24); Bun/Creatinine Ratio 17.6 (12.0-20.0); CO2, Blood 28 mmol/L (21-32); Calcium, Blood 7.9 mg/dL (8.5-10.1); Chloride, Blood 102 mmol/L (98-108); Glomerular Filtration Rate >60 (60-); Glucose, Blood 100 mg/dL (70-99); Potassium, Blood 3.8 mmol/L (3.5-5.5); Sodium, Blood 136 mmol/L (136-145)
--- NOTE | 2021-08-18 06:02 | NUR ---
SEED CORE OPERATOR SUMMARY PT IS AXO X4 AND COMMUNICATING APPROPRIATELY. O2 SATS MAINTAINED >90% ON 3L NC EXCEPT FOR ONE INCIDENT WHERE THE PT WAS SITTING IN BED AND HIS O2 DROPPED INTO THE LOW 70'S REQUIRING 15L NC FOR APPROX 10MIN BEFORE HE COULD BE TITRATED BACK DOWN. PT ON 4L NC THIS AM W O2 SATS >90%. BP WNL AND STABLE THIS SHIFT. HR 110'S FOR MOST OF THE SHIFT BUT INTO THE 130'S WHEN HE AMBULATES. PT ABLE TO SLEEP FOR MUCH OF THE SHIFT. WILL REPORT TO ONCOMING JALEN
[2021-08-18] MEDS ORDERED: CEFTRIAXONE2 G1 IV (15:10)
[2021-08-18] MEDS ORDERED: NICO21TP TOP (15:11)
[2021-08-18] MEDS ORDERED: PROBIOTIC1 EA13 PO (15:12)
--- NOTE | 2021-08-18 16:06 | NUR ---
UPDATE DC ORDERS PLACED. POWERGLIDE TO RIGHT UPPER ARM PLACED FOR OUTPATIENT ANTIBIOTICS. PT EDUCATED ON CARE FOR POWERGLIDE. PT PROVIDED DC INSTRUCTIONS. PT EDUCATED ON MEDICATIONS. ALL QUESTIONS ANSWERED. VLADIMIR IN TO PROVIDE HOME O2. PT TAKEN OUT BY BRIAN.
== END 2021-08-18 16:07 | disposition home or self-care (01) | DRG 871 ==
LOC: ER 21:33 → ERHOLD 23:52 → PCU 23:52
PROVIDERS: Emergency Medicine; Family Medicine; Hospitalist; Student in an Organized Health Care Education/Training Program; ADMIT Internal Medicine
DX: A41.01 Sepsis due to Methicillin susceptible Staphylococcus aureus (principal); J96.01 Acute respiratory failure with hypoxia; D61.810 Antineoplastic chemotherapy induced pancytopenia; J15.211 Pneumonia due to Methicillin susceptible Staphylococcus aureus; N17.9 Acute kidney failure, unspecified; E87.1 Hypo-osmolality and hyponatremia; K91.89 Other postprocedural complications and disorders of digestive system; K56.7 Ileus, unspecified; Z20.822 Contact with and (suspected) exposure to COVID-19; R65.20 Severe sepsis without septic shock; I95.9 Hypotension, unspecified; T45.1X5A Adverse effect of antineoplastic and immunosuppressive drugs, initial encounter; F10.10 Alcohol abuse, uncomplicated; D69.6 Thrombocytopenia, unspecified; I10 Essential (primary) hypertension; F31.9 Bipolar disorder, unspecified; E78.5 Hyperlipidemia, unspecified; F17.210 Nicotine dependence, cigarettes, uncomplicated; Z88.8 Allergy status to other drugs, medicaments and biological substances; Z79.899 Other long term (current) drug therapy; Z79.82 Long term (current) use of aspirin; Z85.819 Personal history of malignant neoplasm of unspecified site of lip, oral cavity, and pharynx; Z86.718 Personal history of other venous thrombosis and embolism; Z98.890 Other specified postprocedural states; Z92.21 Personal history of antineoplastic chemotherapy; Z93.1 Gastrostomy status
CPT/HCPCS: 0241U; 36415; 36430; 71045; 71260; 74177; 80048; 80053; 80202; 82565; 83605; 83880; 84145; 85025; 85027; 86850; 86900; 86901; 86923; 87040; 87077; 87147; 87186; 93005; 93010; 93306; 94660; 94760; 94761; 94762; 96374; 96375; 99285-25; A9270; C1751; J0456; J0696; J1940; J3370; J3480; J7030; J7040; J7060; J7120; P9016; Q9967

== ENCOUNTER 2021-08-19 01:13 | Day surgery (SDC) | payer OTHER ==
[~2021-08-19 01:13] MED LIST changes: +CEFTRIAXONE2 G1 IV; +PROBIOTIC1 EA13 PO
== END 2021-08-19 15:29 | disposition home or self-care (01) ==
LOC: ATC 01:13
DX: J96.91 Respiratory failure, unspecified with hypoxia (principal)
CPT/HCPCS: J0696

== ENCOUNTER 2021-08-20 00:20 | Day surgery (SDC) | payer OTHER | END 2021-08-20 15:32 | disposition home or self-care (01) | LOC: ATC 00:20 | DX: J96.01 Acute respiratory failure with hypoxia (principal) | CPT/HCPCS: J0696 ==

== ENCOUNTER 2021-08-22 00:11 | Day surgery (SDC) | payer OTHER | END 2021-08-22 15:07 | disposition home or self-care (01) | LOC: ATC 00:11 | DX: J96.00 Acute respiratory failure, unspecified whether with hypoxia or hypercapnia (principal) | CPT/HCPCS: 96374; J0696 ==

== ENCOUNTER 2021-08-23 14:51 | Day surgery (SDC) | payer OTHER | END 2021-08-23 15:10 | disposition home or self-care (01) | LOC: ATC 14:51 | DX: J96.00 Acute respiratory failure, unspecified whether with hypoxia or hypercapnia (principal) | CPT/HCPCS: J0696 ==

== ENCOUNTER 2021-08-24 02:19 | Day surgery (SDC) | payer OTHER | END 2021-08-24 15:34 | disposition home or self-care (01) | LOC: ATC 02:19 | DX: J96.00 Acute respiratory failure, unspecified whether with hypoxia or hypercapnia (principal) | CPT/HCPCS: J0696 ==

== ENCOUNTER 2021-08-25 01:51 | Day surgery (SDC) | payer OTHER | END 2021-08-25 15:28 | disposition home or self-care (01) | LOC: ATC 01:51 | DX: J96.01 Acute respiratory failure with hypoxia (principal); I10 Essential (primary) hypertension; E78.5 Hyperlipidemia, unspecified; Z85.818 Personal history of malignant neoplasm of other sites of lip, oral cavity, and pharynx; Z92.21 Personal history of antineoplastic chemotherapy; F17.210 Nicotine dependence, cigarettes, uncomplicated; Z88.8 Allergy status to other drugs, medicaments and biological substances | CPT/HCPCS: J0696 ==

== ENCOUNTER 2021-08-26 02:43 | Day surgery (SDC) | payer OTHER | END 2021-08-26 15:14 | disposition home or self-care (01) | LOC: ATC 02:43 | DX: J96.00 Acute respiratory failure, unspecified whether with hypoxia or hypercapnia (principal); I10 Essential (primary) hypertension; E78.5 Hyperlipidemia, unspecified; Z86.718 Personal history of other venous thrombosis and embolism | CPT/HCPCS: J0696 ==

== ENCOUNTER 2021-08-28 00:47 | Day surgery (SDC) | payer OTHER | END 2021-08-28 15:24 | disposition home or self-care (01) | LOC: ATC 00:47 | DX: J96.00 Acute respiratory failure, unspecified whether with hypoxia or hypercapnia (principal); I10 Essential (primary) hypertension; E78.5 Hyperlipidemia, unspecified; F17.210 Nicotine dependence, cigarettes, uncomplicated; Z85.818 Personal history of malignant neoplasm of other sites of lip, oral cavity, and pharynx; Z86.718 Personal history of other venous thrombosis and embolism; Z79.891 Long term (current) use of opiate analgesic; Z88.8 Allergy status to other drugs, medicaments and biological substances; Z79.899 Other long term (current) drug therapy | CPT/HCPCS: 96374; J0696 ==

== ENCOUNTER 2021-08-30 14:53 | Day surgery (SDC) | payer OTHER | END 2021-08-30 15:25 | disposition home or self-care (01) | LOC: ATC 14:53 | DX: J96.91 Respiratory failure, unspecified with hypoxia (principal) | CPT/HCPCS: J0696 ==

== ENCOUNTER 2021-09-09 07:40 | Day surgery (SDC) | payer OTHER ==
[2021-09-08 13:25] LABS: BASOPHILS ABSOLUTE AUTO 0.02 K/mm3 (0.00-0.23); BASOPHILS PERCENT AUTO 0 % (0-2); EOSINOPHILS ABSOLUTE AUTO 0.04 K/mm3 (0.00-0.68); EOSINOPHILS PERCENT AUTO 1 % (0-6); Hematocrit 27.6 % (37.0-53.0); Hemoglobin 8.4 g/dL (13.5-17.5); IMMATURE GRAN ABSOLUTE AUTO 0.17 K/mm3 (0.00-0.10); IMMATURE GRAN PERCENT AUTO 2 % (0-1); LYMPHOCYTES ABSOLUTE AUTO 0.89 K/mm3 (0.84-5.20); LYMPHOCYTES PERCENT AUTO 12 % (21-46); MONOCYTES ABSOLUTE AUTO 0.72 K/mm3 (0.16-1.47); MONOCYTES PERCENT AUTO 9 % (4-13); Mean Corpuscular HGB 34.1 pg (26.0-34.0); Mean Corpuscular HGB Conc 30.4 g/dL (31.5-36.5); Mean Corpuscular Volume 112 fL (80-100); Mean Platelet Volume 9.1 fL (9.1-12.4); NEUTROPHILS ABSOLUTE AUTO 5.82 K/mm3 (1.96-9.15); NEUTROPHILS PERCENT AUTO 76 % (41-73); NRBC ABSOLUTE 0.11 K/mm3 (0.00-0.02); NRBC Auto 1.4 /100 WBC (0.0-0.2); Platelet Count 223 K/mm3 (150-400); RDW Coefficient Variation 24.6 % (11.7-14.2); RDW Standard Deviation 102.1 fL (35.1-46.3); Red Blood Cell Count 2.46 M/mm3 (4.30-5.90); White Blood Cell Count 7.66 K/mm3 (4.00-11.30)
== END 2021-09-09 12:03 | disposition home or self-care (01) ==
LOC: ATC 07:40 → EDSTATUS 08:00 → ATC 12:03
PROVIDERS: Internal Medicine Hematology & Oncology
DX: C10.8 Malignant neoplasm of overlapping sites of oropharynx (principal); C77.0 Secondary and unspecified malignant neoplasm of lymph nodes of head, face and neck; D70.1 Agranulocytosis secondary to cancer chemotherapy; D61.810 Antineoplastic chemotherapy induced pancytopenia; T45.1X5A Adverse effect of antineoplastic and immunosuppressive drugs, initial encounter; I10 Essential (primary) hypertension; E78.5 Hyperlipidemia, unspecified; Z88.8 Allergy status to other drugs, medicaments and biological substances; F31.9 Bipolar disorder, unspecified; F10.10 Alcohol abuse, uncomplicated
CPT/HCPCS: 36415; 36430; 85025; 86850; 86900; 86901; 86923; J7040; P9016

== ENCOUNTER 2021-09-21 | Observation (INO) | payer OTHER ==
[~2021-09-21] VITALS: Ht 182.9 cm; Wt 57.5 kg
[~2021-09-21] MED LIST changes: -OLAN20 MM; +OLAN20 PO
[2021-09-21 00:38] LABS: Hematocrit 26.5 % (37.0-53.0); Hemoglobin 9.3 g/dL (13.5-17.5); Mean Corpuscular HGB 34.6 pg (26.0-34.0); Mean Corpuscular HGB Conc 35.1 g/dL (31.5-36.5); Mean Corpuscular Volume 99 fL (80-100); Mean Platelet Volume 9.8 fL (9.1-12.4); Platelet Count 101 K/mm3 (150-400); RDW Coefficient Variation 18.6 % (11.7-14.2); RDW Standard Deviation 66.8 fL (35.1-46.3); Red Blood Cell Count 2.69 M/mm3 (4.30-5.90); White Blood Cell Count 6.76 K/mm3 (4.00-11.30)
[2021-09-21 00:57] LABS: BAND PERCENT MAN 14 % (0-8); BASOPHILS PERCENT MAN 0 % (0-2); EOSINOPHILS PERCENT MAN 0 % (0-6); LYMPHOCYTES ABSOLUTE MAN 0.47 K/mm3 (0.84-5.20); LYMPHOCYTES PERCENT MAN 7 % (21-46); METAMYELOCYTE ABSOLUTE MAN 0.13 K/mm3 (0.00-0.00); METAMYELOCYTE PERCENT MAN 2 % (0-0); MONOCYTES ABSOLUTE MAN 0.06 K/mm3 (0.16-1.47); MONOCYTES PERCENT MAN 1 % (4-13); MYELOCYTE ABSOLUTE MAN 0.06 K/mm3 (0.00-0.00); MYELOCYTE PERCENT MAN 1 % (0-0); NEUTROPHILS ABSOLUTE MAN 6.01 K/mm3 (1.96-9.15); SEG NEUTROPHILS PERCENT MAN 75 % (41-73); TOTAL CELLS COUNTED 100
[2021-09-21 00:58] LABS: Albumin, Blood 2.4 g/dL (3.4-5.0); Albumin/Globulin Ratio 0.8 (0.8-1.8); Bilirubin, Total 0.7 mg/dL (0.1-1.0); Bun/Creatinine Ratio 16.1 (12.0-20.0); Calcium, Blood 7.9 mg/dL (8.5-10.1); Creatinine, Blood 0.62 mg/dL (0.60-1.20); Globulin, Blood 3.1 g/dL (2.2-4.0); Potassium, Blood 3.4 mmol/L (3.5-5.5); Total Protein, Blood 5.5 g/dL (6.4-8.2)
[2021-09-21 01:08] LABS: Influenza A, PCR NEGATIVE (NEGATIVE); Influenza B, PCR NEGATIVE (NEGATIVE); Resp Syncytial Virus, PCR NEGATIVE (NEGATIVE)
[2021-09-21 01:09] LABS: SARS-Cov-2 (COVID-19) PCR, MMC POSITIVE (NEGATIVE)
[2021-09-21] MEDS ORDERED: ENDOCET 7.5-321 EACH PO (03:54)
[2021-09-21] MEDS ORDERED: AMLO10 PO (03:55)
[2021-09-21] MEDS ORDERED: LOSA25 PO (03:56)
--- NOTE | 2021-09-21 05:10 | NUR ---
ADMIT PT ARRIVED TO RM 330 @0450, IND TRANSFER TO NEW BED. ADMITTED FOR COVID +. ON 6L O2. ORIENTED TO RM & CALL LIGHT.
--- NOTE | 2021-09-21 07:32 | NUR ---
SHIFT SUMMARY AOX4. VSS. TELE SINUSTACH 106. SPO2 >90% ON 7L HF NC, WEARS 4L O2 @BASELINE. ADMITTED FOR COVID. REPORTS DYSPNEA @REST. E/U RESP. LS COARSE L LOBES & MORE DIMINISHED R LOBES. DRY NONPRODUCTIVE COUGH. REPORTS 8-9/10 BURNING N/T PAIN IN HANDS & BLE, STATES PAIN IS FROM RECIEVING CHEMO, MEDICATED c TYLENOL & INFORMED DR GAMBOA, SHE ORDERED TRAMADOL PRN. PT REPORTS FEELING VERY ANXIOUS & RESTLESS, INFORMED DR GAMBOA & SHE ORDERED 25MG ATARAX. CIWA SCORE 6. PT STATES LAST ETOH DRINK WAS LAST NIGHT 09/20/21 & HE HAD 8 BEERS BEFORE COMING TO HOSPITAL. IND IN RM. CALL LIGHT IN REACH.
--- NOTE | 2021-09-21 17:43 | NUR ---
SHIFT SUMMARY PT A&O X4 AND IN PLEASENT MOOD. PT FREQUENTLY UTILIZING CALL LIGHT FOR VARIOUS NEED T/O SHIFT-R/O ANXIETY, MEDICATED PER EMAR. PAIN MEDICATED PER EMAR. PT VERBALIZED WISHES OF D/C TOMORROW. CONT. PULSE OX IN PLACE. TELE IN PLACE. 4L O2 NC, 100%. DENIES CP. CALL LIGHT W/IN REACH. VSS. AMBULATING INDEPENDENTLY IN ROOM W/ STEADY GAIT, MAINTAINING 100%.
--- NOTE | 2021-09-22 06:13 | NUR ---
SHIFT SUMMARY NO ACUTE CHANGES THIS SHIFT. AOX4. VSS. TELE NSR HR 97. REPORTS 6-810 PAIN IN BLE & HANDS, MEDICATED 3X c PERCOCET & PT STATES MILD RELIEF. ONLY SLEPT FOR ROUGHLY 2 HRS MAX TONIGHT. BREATH SOUNDS COARSE T/O & DIM IN BASES. E/U RESP. SPO2 @100% ON 4L, TITRATED O2 DOWN TO 3L & SPO2 @99% EVEN WHILE PT UP AMBULATING IN RM SPO2 >90%. OCC DRY NONPRODUCTIVE COUGH. CIWA SCORE 6 & 7, GAVE LIBRIUM ONCE FOR ANXIOUSNESS & RESTLESSNESS. HAD SHOWER LAST NIGHT. PT STATES HE WANTS TO GO HOME TODAY. ABLE TO MAKE NEEDS KNOWN. WILL MONITOR.
[2021-09-22 06:22] LABS: Albumin, Blood 2.4 g/dL (3.4-5.0); Albumin/Globulin Ratio 0.6 (0.8-1.8); Bilirubin, Total 0.3 mg/dL (0.1-1.0); Bun/Creatinine Ratio 27.1 (12.0-20.0); Calcium, Blood 9.1 mg/dL (8.5-10.1); Creatinine, Blood 0.66 mg/dL (0.60-1.20); Globulin, Blood 3.9 g/dL (2.2-4.0); Total Protein, Blood 6.3 g/dL (6.4-8.2)
--- NOTE | 2021-09-22 08:00 | NUR ---
Pt sitting on the side of the bed eating breakfast, a/ox3, pleasant and coopertive with care, follows commands well, reports pain 7/10 to all ext, lungs are mildly course t/o, resp even and unlabored, denies cough, currently on 3 liters, sats 99-100%, will do home o2 eval, because he uses 4liters at home, hrr, tele in place running sr per monitor, see strip, 2-3+ edema noted to b/l le, piv to rac site is clear and patent, btx4, abd flat soft nontender, voids without diff, skin c/w/d, maew, up ad cheryl in room, reports he feels good and would like to go home today, call light in reach.
[2021-09-22 08:45] LABS: Albumin, Blood 2.4 g/dL (3.4-5.0); Albumin/Globulin Ratio 0.6 (0.8-1.8); Bilirubin, Total 0.3 mg/dL (0.1-1.0); Bun/Creatinine Ratio 32.9 (12.0-20.0); Calcium, Blood 8.5 mg/dL (8.5-10.1); Creatinine, Blood 0.55 mg/dL (0.60-1.20); Globulin, Blood 3.7 g/dL (2.2-4.0); Potassium, Blood 3.6 mmol/L (3.5-5.5); Total Protein, Blood 6.1 g/dL (6.4-8.2)
--- NOTE | 2021-09-22 13:12 | NUR ---
Pt has been discharged to home, waiting on home 02 eval before discharging, call light in reach.
--- NOTE | 2021-09-22 13:35 | NUR ---
pt has been discharged to home, iv removed intact, had home o2 eval, no need for o2 at this time, verbalized understanding of instructions, new medication called into [facility], left via wheelchair with all belongings.
== END 2021-09-22 13:43 | disposition home or self-care (01) ==
LOC: ER → MEDS 00:01 → ER 04:33 → MEDS 04:33
PROVIDERS: Emergency Medicine; Family Medicine; Student in an Organized Health Care Education/Training Program; ADMIT Family Medicine
DX: U07.1 COVID-19 (principal); J96.21 Acute and chronic respiratory failure with hypoxia; R79.89 Other specified abnormal findings of blood chemistry; E87.1 Hypo-osmolality and hyponatremia; E87.6 Hypokalemia; F10.10 Alcohol abuse, uncomplicated; E78.5 Hyperlipidemia, unspecified; F17.210 Nicotine dependence, cigarettes, uncomplicated; I11.0 Hypertensive heart disease with heart failure; I50.31 Acute diastolic (congestive) heart failure; Z85.818 Personal history of malignant neoplasm of other sites of lip, oral cavity, and pharynx; Z92.21 Personal history of antineoplastic chemotherapy; Z86.718 Personal history of other venous thrombosis and embolism; Z88.8 Allergy status to other drugs, medicaments and biological substances; D64.9 Anemia, unspecified; D69.6 Thrombocytopenia, unspecified
CPT/HCPCS: 0241U; 36415; 71045; 71260; 80053; 83605; 83880; 84145; 84300; 84484; 85025; 85379; 93005; 93010; 94640; 94664; 94760; 94761; 94762; A9270; J0248; J0456; J0696; J1100; J1650; J1940; J2930; J3480; J7050; Q9967

== ENCOUNTER → 2022-02-19 | Outpatient (CLI) | payer OTHER ==
[~2022-02-19] MED LIST changes: +ENDOCET 7.5-321 EACH PO
== END | disposition home or self-care (01) ==
LOC: LAB 07:36 → LAB SHORT 07:36 → PLD 07:36
DX: D37.02 Neoplasm of uncertain behavior of tongue (principal)
CPT/HCPCS: 88305; 88312; 88313

== ENCOUNTER 2022-05-18 00:04 | Day surgery (SDC) | payer OTHER | END 2022-05-18 22:58 | disposition home or self-care (01) | LOC: WOUND 00:04 | DX: M27.2 Inflammatory conditions of jaws (principal); C77.0 Secondary and unspecified malignant neoplasm of lymph nodes of head, face and neck; M87.180 Osteonecrosis due to drugs, jaw; Z72.0 Tobacco use | CPT/HCPCS: 99406; G0463 ==

== ENCOUNTER → 2022-09-18 | Outpatient (CLI) | payer OTHER ==
[2022-09-18 20:08] LABS: BASOPHILS ABSOLUTE AUTO 0.03 K/mm3 (0.00-0.23); BASOPHILS PERCENT AUTO 0 % (0-2); EOSINOPHILS ABSOLUTE AUTO 0.11 K/mm3 (0.00-0.68); EOSINOPHILS PERCENT AUTO 2 % (0-6); Hematocrit 31.8 % (37.0-53.0); Hemoglobin 10.4 g/dL (13.5-17.5); IMMATURE GRAN ABSOLUTE AUTO 0.02 K/mm3 (0.00-0.10); IMMATURE GRAN PERCENT AUTO 0 % (0-1); LYMPHOCYTES ABSOLUTE AUTO 2.65 K/mm3 (0.84-5.20); LYMPHOCYTES PERCENT AUTO 39 % (21-46); MONOCYTES PERCENT AUTO 12 % (4-13); Mean Corpuscular HGB Conc 32.7 g/dL (31.5-36.5); Mean Corpuscular Volume 98 fL (80-100); Mean Platelet Volume 9.3 fL (9.1-12.4); NEUTROPHILS ABSOLUTE AUTO 3.11 K/mm3 (1.96-9.15); NEUTROPHILS PERCENT AUTO 46 % (41-73); Platelet Count 286 K/mm3 (150-400); RDW Coefficient Variation 12.6 % (11.7-14.2); RDW Standard Deviation 45.5 fL (35.1-46.3); Red Blood Cell Count 3.25 M/mm3 (4.30-5.90); White Blood Cell Count 6.72 K/mm3 (4.00-11.30)
[2022-09-18 21:14] LABS: Albumin, Blood 2.8 g/dL (3.4-5.0); Albumin/Globulin Ratio 0.7 (0.8-1.8); Bilirubin, Total 0.2 mg/dL (0.1-1.0); Bun/Creatinine Ratio 6.1 (12.0-20.0); Calcium, Blood 8.7 mg/dL (8.5-10.1); Creatinine, Blood 1.32 mg/dL (0.60-1.20); Potassium, Blood 3.3 mmol/L (3.5-5.5); Total Protein, Blood 6.8 g/dL (6.4-8.2)
== END | disposition home or self-care (01) ==
LOC: LAB 17:54 → LAB SHORT 17:54
PROVIDERS: Family Medicine
DX: I10 Essential (primary) hypertension (principal); Z79.899 Other long term (current) drug therapy
CPT/HCPCS: 80053; 85025

== ENCOUNTER 2023-04-09 15:25 | Inpatient (IN) | payer OTHER ==
[~2023-04-09] VITALS: Ht 185.4 cm; Wt 80.9 kg
[2023-04-09 16:16] LABS: BASOPHILS ABSOLUTE AUTO 0.02 K/mm3 (0.00-0.23); BASOPHILS PERCENT AUTO 0 % (0-2); EOSINOPHILS ABSOLUTE AUTO 0.01 K/mm3 (0.00-0.68); EOSINOPHILS PERCENT AUTO 0 % (0-6); Hematocrit 37.2 % (37.0-53.0); Hemoglobin 13.1 g/dL (13.5-17.5); IMMATURE GRAN ABSOLUTE AUTO 0.05 K/mm3 (0.00-0.10); IMMATURE GRAN PERCENT AUTO 1 % (0-1); LYMPHOCYTES PERCENT AUTO 19 % (21-46); MONOCYTES ABSOLUTE AUTO 0.96 K/mm3 (0.16-1.47); MONOCYTES PERCENT AUTO 10 % (4-13); Mean Corpuscular HGB 33.9 pg (26.0-34.0); Mean Corpuscular HGB Conc 35.2 g/dL (31.5-36.5); Mean Corpuscular Volume 96 fL (80-100); Mean Platelet Volume 8.3 fL (9.1-12.4); NEUTROPHILS ABSOLUTE AUTO 6.64 K/mm3 (1.96-9.15); NEUTROPHILS PERCENT AUTO 70 % (41-73); Platelet Count 192 K/mm3 (150-400); RDW Standard Deviation 46.1 fL (35.1-46.3); Red Blood Cell Count 3.87 M/mm3 (4.30-5.90); White Blood Cell Count 9.48 K/mm3 (4.00-11.30)
[2023-04-09 16:54] LABS: Albumin, Blood 3.3 g/dL (3.4-5.0); Albumin/Globulin Ratio 0.8 (0.8-1.8); Bilirubin, Total 0.5 mg/dL (0.1-1.0); Bun/Creatinine Ratio 6.9 (12.0-20.0); C-REACTIVE PROTEIN, EXT RANGE 15.7 mg/dL (0.000-0.300); Calcium, Blood 8.8 mg/dL (8.5-10.1); Creatinine, Blood 1.01 mg/dL (0.60-1.20); Globulin, Blood 4.4 g/dL (2.2-4.0); Potassium, Blood 3.9 mmol/L (3.5-5.5); Total Protein, Blood 7.7 g/dL (6.4-8.2)
[2023-04-10] VITALS (7 sets, daily range): BP systolic 81–149; BP diastolic 61–104
[2023-04-10] MEDS ORDERED: OLAN20 MM (00:50)
[2023-04-10] MEDS ORDERED: ZOLP5 PO (00:51)
[2023-04-10 05:43] LABS: BASOPHILS ABSOLUTE AUTO 0.01 K/mm3 (0.00-0.23); BASOPHILS PERCENT AUTO 0 % (0-2); EOSINOPHILS ABSOLUTE AUTO 0.07 K/mm3 (0.00-0.68); EOSINOPHILS PERCENT AUTO 1 % (0-6); Hematocrit 32.2 % (37.0-53.0); Hemoglobin 11.1 g/dL (13.5-17.5); IMMATURE GRAN ABSOLUTE AUTO 0.04 K/mm3 (0.00-0.10); IMMATURE GRAN PERCENT AUTO 1 % (0-1); LYMPHOCYTES ABSOLUTE AUTO 1.22 K/mm3 (0.84-5.20); LYMPHOCYTES PERCENT AUTO 19 % (21-46); MONOCYTES ABSOLUTE AUTO 0.88 K/mm3 (0.16-1.47); MONOCYTES PERCENT AUTO 14 % (4-13); Mean Corpuscular HGB Conc 34.5 g/dL (31.5-36.5); Mean Corpuscular Volume 99 fL (80-100); Mean Platelet Volume 8.4 fL (9.1-12.4); NEUTROPHILS ABSOLUTE AUTO 4.22 K/mm3 (1.96-9.15); NEUTROPHILS PERCENT AUTO 66 % (41-73); Platelet Count 185 K/mm3 (150-400); RDW Coefficient Variation 12.9 % (11.7-14.2); RDW Standard Deviation 46.6 fL (35.1-46.3); Red Blood Cell Count 3.26 M/mm3 (4.30-5.90); White Blood Cell Count 6.44 K/mm3 (4.00-11.30)
[2023-04-10 06:39] LABS: Albumin, Blood 2.7 g/dL (3.4-5.0); Albumin/Globulin Ratio 0.7 (0.8-1.8); Bilirubin, Total 0.4 mg/dL (0.1-1.0); Bun/Creatinine Ratio 8.3 (12.0-20.0); Calcium, Blood 8.2 mg/dL (8.5-10.1); Creatinine, Blood 0.97 mg/dL (0.60-1.20); Globulin, Blood 3.7 g/dL (2.2-4.0); Potassium, Blood 3.7 mmol/L (3.5-5.5); Total Protein, Blood 6.4 g/dL (6.4-8.2)
--- NOTE | 2023-04-10 08:19 | NUR ---
SHIFT SUMMARY: ER ADMIT. A/O. INDEPENDENT IN RM. STATES NEEDS APPROPRIATELY. ABLE TO SWALLOW WITHOUT DIFFICULTY. STATES MEAT IS HARD TO SWALLOW AT TIMES. NS AT 150 MLS/HR, IV ABX FOR NECK CELLULITIS. NO CHOKING OR COUGHING NOTED DURING SWALLOWING. PT CAN ADVANCE DIET TOLERATED PER DR'S ORDER. NO ACUTE CHANGES. WILL CONTINUE TO PROVIDE CARE UNTIL SHIFT REPORT.
--- NOTE | 2023-04-10 16:14 | NUR ---
ATTEMPT AT ORTHOSTATIC BLOOD PRESSURES WITH ACTVITY ASSESSMENT THIS AFTERNOON AFTER MECLIZINE FULLY ON BOARD. RN BALBINA PEREZ PRESENT FOR ADDITIONAL ASSISTANCE TO PATIENT. PATIENT STATES DIZZY UPON SITTING UPRIGHT BUT THIS IS HIS BASELINE VERTIGO ALONG WITH STANDING. HE DOES REPORT INCREASE IN SHORTNESS OF BREATH UPON STANDING WITH 4LPM NC. AND SAT DOWN VERY QUICKLY WHEN OXYGEN SENSOR ALRM WENT OFF AT 80% SATURATION. PATIENT BREATHING MORE HEAVILY AND HR GOT UP TO 120 WITH PATIENT STANING, DECREASED TO 112 WITHIN 2 MINUTES AND 84% ON 5LPM NC, AFTER 2 ADDITIONAL MINUTES, HR 93 AND O2 SAT 92%, RESP DECREASING TO 18. PATIENT NEEDS VERBAL REMINDERS TO BREATHE IN THROUGH HIS NOSE. LEFT MESSAGE FOR DR BENAVIDEZ AT 1600.
--- NOTE | 2023-04-10 17:19 | NUR ---
SHIFT SUMMARY NO ACUTE CHANGES DURING SHIFT. REDNESS AND SWELLING MARKED WITH SOFT MARKER. PATIENT MEDICATED FOR PAIN OF NECK WITH GOOD RELIEF, ABX GIVEN SCHEDULED. PATIENT UP WALKING HALLS AD ANGELICA. BED IN LOW POSITION, CALL LIGHT IN REACH. PATIENT MAKES NEEDS KNOWN.
[2023-04-11 04:50] VITALS: BP 139/98
[2023-04-11 05:46] LABS: BASOPHILS ABSOLUTE AUTO 0.02 K/mm3 (0.00-0.23); BASOPHILS PERCENT AUTO 0 % (0-2); EOSINOPHILS PERCENT AUTO 2 % (0-6); Hematocrit 34.2 % (37.0-53.0); Hemoglobin 11.5 g/dL (13.5-17.5); IMMATURE GRAN ABSOLUTE AUTO 0.03 K/mm3 (0.00-0.10); IMMATURE GRAN PERCENT AUTO 1 % (0-1); LYMPHOCYTES ABSOLUTE AUTO 1.89 K/mm3 (0.84-5.20); LYMPHOCYTES PERCENT AUTO 31 % (21-46); MONOCYTES ABSOLUTE AUTO 0.77 K/mm3 (0.16-1.47); MONOCYTES PERCENT AUTO 12 % (4-13); Mean Corpuscular HGB 33.4 pg (26.0-34.0); Mean Corpuscular HGB Conc 33.6 g/dL (31.5-36.5); Mean Corpuscular Volume 99 fL (80-100); Mean Platelet Volume 8.5 fL (9.1-12.4); NEUTROPHILS ABSOLUTE AUTO 3.38 K/mm3 (1.96-9.15); NEUTROPHILS PERCENT AUTO 55 % (41-73); Platelet Count 199 K/mm3 (150-400); RDW Coefficient Variation 12.9 % (11.7-14.2); RDW Standard Deviation 47.3 fL (35.1-46.3); Red Blood Cell Count 3.44 M/mm3 (4.30-5.90); White Blood Cell Count 6.19 K/mm3 (4.00-11.30)
[2023-04-11 06:01] LABS: Bun/Creatinine Ratio 3.9 (12.0-20.0); Calcium, Blood 8.5 mg/dL (8.5-10.1); Creatinine, Blood 1.02 mg/dL (0.60-1.20); Potassium, Blood 3.8 mmol/L (3.5-5.5)
--- NOTE | 2023-04-11 06:17 | NUR ---
SUMMARY- NO NEW ISSUES NOTED. PT PAIN MANAGED WELL PER MAR. PT HAS BEEN UP MOST OF SHIFT. PT HAS BEEN TAKING IN PO WITHOUT ISSUE. PT DENIES DIFFICULTY SWALLOWING. CALL LIGHT IN REACH.
[2023-04-11 07:16] VITALS: BP 111/75
[2023-04-11 14:11] LABS: Amylase, Body Fluid 69 U/L
[2023-04-11 14:41] VITALS: BP 130/93
[2023-04-11 14:42] VITALS: BP 135/97
--- NOTE | 2023-04-11 17:03 | NUR ---
SHIFT SUMMARY PATIENT PAIN CONTROLLED WITH HYDROCODONE THIS AM. THIS AFTERNOON DR GOODWIN EXTRACTED 15ML FLUID FROM LEFT NECK MASS AND SENT FOR CULTURE AND AMYLASE TEST. HE ALSO ORDERED DEXAMETHASONE WHICH PATIENT REPORTS HAS DECREASED HIS PAIN THIS AFTERNOON TO 2/10 WHICH HE STATES IS TOLERABLE. OZ IS UP INDEPENDENT IN ROOM AND IN HALLS. HE MAKES NEEDS KNOWN. USES CALL LIGHT APPROPRIATELY. WILL CONTINUE TO MONITOR.
--- NOTE | 2023-04-11 19:03 | NUR ---
TOOK OVER OPERATOR ELECTRONIC WARFARE CARE AT 1630 UNTIL SHIFT CHANGE.
[2023-04-11 19:59] VITALS: BP 135/91
--- NOTE | 2023-04-12 04:29 | NUR ---
SHIFT SUMMARY ADMITTED FOR CELLULITIS/ABCESS ON LEFT SIDE OF THE NECK. FULL CODE. IV STEROIDS AND ANTIB RX ARE SCHEDULED. ENT CONSULT IS DR. GOODWIN, FLUID FROM ABCESS SENT FOR ANALYSIS. [facility] SOFT/GROUND MEAT DIET. HIS SWALLOWING IS IMPROVING. HE IS A&O X4, INDEPENDENT. HE IS ON ROOM AIR. HX OF THROAT CANCER/CHEMO 3 YEARS AGO.
[2023-04-12 05:07] VITALS: BP 154/105
[2023-04-12 05:09] VITALS: BP 142/104
[2023-04-12 07:17] VITALS: BP 139/95
[2023-04-12 15:13] VITALS: BP 117/83
--- NOTE | 2023-04-12 17:23 | NUR ---
SHIFT SUMMARY Pt remains A&Ox3 this shift. VSS. Denies pain. Resp even nonlabored on RA. Ambulating independently in hallway. Tolerating meals with difficulty swallowing. NO acute events this shift. Pain and safety maintained. Will continue to monitor this shift.
[2023-04-12 19:13] VITALS: BP 124/83
[2023-04-13 04:55] VITALS: BP 136/87
--- NOTE | 2023-04-13 06:55 | NUR ---
SUMMARY: PT A/OX4, CALLS APPROPRIATELY TO SPECIFY NEEDS AND IS PLEASANT AND COOPERATIVE W/CARE. HE'S INDEPENDENT IN ROOM AND FREQUENTLY WALKS HALLS. L.NECK ABSCESS IS IMPROVING AND SWELLING/REDNESS HAS RECEDED FROM MARKED REGION. IV ABX RECIEVED PER EMAR. HE'S DENIED PAIN AND ALL COMPLAINTS. NO ACUTE CHANGES, VSS/AFEBRILE. WCTM AND REPORT TO DAY RN.
[2023-04-13 07:28] VITALS: BP 130/91
[2023-04-13 15:50] VITALS: BP 116/79
--- NOTE | 2023-04-13 17:09 | NUR ---
SHIFT SUMMARY: Pt remains A&Ox3 this shift. Ambulating independently in hallway. VSS. Denies pain. Antibiotics changed to po today. Tolerating meals, no trouble swallowing.
[2023-04-13 20:51] VITALS: BP 124/91
[2023-04-14 05:05] VITALS: BP 113/73
--- NOTE | 2023-04-14 06:42 | NUR ---
SUMMARY: PT A/OX4, IS PLEASANT AND COOPERATIVE W/CARE AND INDEPENDENT IN ROOM AND HALLS. HE'S DENIED PAIN AND ALL OTHER COMPLAINTS. PO ABX RECEIVED PER EMAR AND L.NECK ABSCESS SWELLING W/REDNESS IS NEARLY RESOLVED. NO ACUTE CHANGES, VSS/AFEBRILE. PROBABLE D/C THIS AM. WCTM AND REPORT TO DAY RN.
[2023-04-14 07:43] VITALS: BP 117/74
[2023-04-14] MEDS ORDERED: AMLO10 PO (10:26)
[2023-04-14] MEDS ORDERED: AMOX-CLAV 875-1 EAC5 PO (10:27)
[2023-04-14] MEDS ORDERED: EUTHYROX50 MCG PO (10:30)
== END 2023-04-14 12:05 | disposition home or self-care (01) | DRG 603 ==
LOC: ER 15:25 → MEDS 15:26 → ENPENDDIS 04-14 10:14 → MEDS 04-14 12:05
PROVIDERS: Family Medicine; Otolaryngology; Physician Assistant; ADMIT Internal Medicine
PROC: 0W963ZZ Drainage of Neck, Percutaneous Approach (ICD-10-PCS; principal; 2023-04-11)
DX: L03.221 Cellulitis of neck (principal); I10 Essential (primary) hypertension; E03.9 Hypothyroidism, unspecified; B95.4 Other streptococcus as the cause of diseases classified elsewhere; D64.9 Anemia, unspecified; R21 Rash and other nonspecific skin eruption; Z92.21 Personal history of antineoplastic chemotherapy; Z92.3 Personal history of irradiation; Z88.8 Allergy status to other drugs, medicaments and biological substances; Z79.82 Long term (current) use of aspirin; Z85.818 Personal history of malignant neoplasm of other sites of lip, oral cavity, and pharynx; Z86.718 Personal history of other venous thrombosis and embolism; Z85.89 Personal history of malignant neoplasm of other organs and systems; Z87.891 Personal history of nicotine dependence; Z79.890 Hormone replacement therapy
CPT/HCPCS: 36415; 70491; 80048; 80053; 80202; 82150; 85025; 86140; 87070; 87075; 87081; 87147; 87205; 87430; 96365-59; 96367-59; 99285-25; A9270; J0295; J0690; J1100; J1650; J3370; J7030; J7050; Q9967

== ENCOUNTER 2025-01-28 18:08 | Emergency (ER) | payer OTHER, MEDICARE ==
[~2025-01-28] VITALS: Ht 185.4 cm; Wt 79.4 kg
[~2025-01-28 18:08] MED LIST changes: +AMOX-CLAV 875-1 EAC5 PO; +EUTHYROX50 MCG PO; +OLAN20 MM; +ZOLP5 PO
[2025-01-28 18:46] LABS: BASOPHILS ABSOLUTE AUTO 0.04 K/mm3 (0.00-0.23); BASOPHILS PERCENT AUTO 1 % (0-2); EOSINOPHILS ABSOLUTE AUTO 0.07 K/mm3 (0.00-0.68); EOSINOPHILS PERCENT AUTO 1 % (0-6); Hematocrit 38.1 % (37.0-53.0); Hemoglobin 13.3 g/dL (13.5-17.5); IMMATURE GRAN ABSOLUTE AUTO 0.01 K/mm3 (0.00-0.10); IMMATURE GRAN PERCENT AUTO 0 % (0-1); LYMPHOCYTES ABSOLUTE AUTO 3.02 K/mm3 (0.84-5.20); LYMPHOCYTES PERCENT AUTO 50 % (21-46); MONOCYTES ABSOLUTE AUTO 0.62 K/mm3 (0.16-1.47); MONOCYTES PERCENT AUTO 10 % (4-13); Mean Corpuscular HGB Conc 34.9 g/dL (31.5-36.5); Mean Corpuscular Volume 104 fL (80-100); NEUTROPHILS ABSOLUTE AUTO 2.30 K/mm3 (1.96-9.15); NEUTROPHILS PERCENT AUTO 38 % (41-73); NRBC ABSOLUTE 0.00 K/mm3 (0.00-0.02); NRBC Auto 0.0 /100 WBC (0.0-0.2); Platelet Count 127 K/mm3 (150-400); RDW Coefficient Variation 11.8 % (11.7-14.2); RDW Standard Deviation 45.6 fL (35.1-46.3)
[2025-01-28 19:06] LABS: Alanine Aminotransfer (ALT/SGP 53.0 U/L (12-78); Albumin, Blood 3.3 g/dL (3.4-5.0); Albumin/Globulin Ratio 1.0 (0.8-1.8); Anion Gap 17.0 mmol/L (3-11); Aspartate Aminotrans (AST/SGOT 62.0 U/L (12-37); Bilirubin, Total 0.3 mg/dL (0.1-1.0); Blood Urea Nitrogen 6.0 mg/dL (8-24); CO2, Blood 20.0 mmol/L (21-32); Calcium, Blood 8.2 mg/dL (8.5-10.1); Chloride, Blood 94.0 mmol/L (98-108); Creatinine, Blood 0.72 mg/dL (0.60-1.20); Ethanol (Alcohol), Blood, Med 286.0 mg/dL; Globulin, Blood 3.2 g/dL (2.2-4.0); Glucose, Blood 92.0 mg/dL (70-99); Potassium, Blood 3.4 mmol/L (3.5-5.5); Sodium, Blood 128.0 mmol/L (136-145); Total Protein, Blood 6.5 g/dL (6.4-8.2)
[2025-01-28 19:39] VITALS: BP 152/101
== END 2025-01-28 20:01 | disposition home or self-care (01) ==
LOC: ER 18:08
PROVIDERS: Emergency Medicine
DX: S01.511A Laceration without foreign body of lip, initial encounter (principal); S00.81XA Abrasion of other part of head, initial encounter; S00.83XA Contusion of other part of head, initial encounter; W01.0XXA Fall on same level from slipping, tripping and stumbling without subsequent striking against object, initial encounter; E87.1 Hypo-osmolality and hyponatremia; F10.90 Alcohol use, unspecified, uncomplicated; Z79.82 Long term (current) use of aspirin
CPT/HCPCS: 70450; 72125; 80053; 80320; 85025; 93005; 93010; 99284-25